=== PATIENT | female | born 1965 | race Caucasian/White ===

== ENCOUNTER → 2019-06-19 14:08 | Outpatient (BNVA) | payer MEDICAID, SELFPAY | PROVIDERS: Family Provider Family Medicine; Visit Provider Nurse Practitioner | DX: F31.71 Bipolar disorder, in partial remission, most recent episode hypomanic (principal) | CPT/HCPCS: 99214 ==

== ENCOUNTER → 2019-09-17 08:06 | Outpatient (BNVA) | payer MEDICAID, SELFPAY | PROVIDERS: Family Provider Family Medicine; Visit Provider Nurse Practitioner | DX: F31.71 Bipolar disorder, in partial remission, most recent episode hypomanic (principal) | CPT/HCPCS: 99214 ==

== ENCOUNTER → 2019-12-20 09:15 | Outpatient (BNVA) | payer MEDICAID, SELFPAY | PROVIDERS: Family Provider Family Medicine; Visit Provider Nurse Practitioner | DX: F31.71 Bipolar disorder, in partial remission, most recent episode hypomanic (principal) | CPT/HCPCS: 99213 ==

== ENCOUNTER 2020-02-11 13:36 | Outpatient (CLI) | payer MEDICAID, SELFPAY ==
--- NOTE | 2020-02-11 13:44 | XR_ITS ---
WS: [id number] Chest 2 views, 02/11/2020 Clinical Data: COUGH X 1 MONTH NEG COVID Comparison: Portable chest, 05/09/2018. Findings: No nodules, masses or effusions are seen. The heart is normal. The pulmonary vascularity is not increased. No pneumonia or pneumothorax is seen. XR/XR chest 2V* [id number] Impression: Negative chest.
== END 2020-02-11 13:37 | disposition home or self-care (01) ==
LOC: RAD 13:40
PROVIDERS: PCP Family Medicine; Visit Provider Family Medicine
DX: R05 Cough (principal)
CPT/HCPCS: 71046

== ENCOUNTER → 2020-03-24 07:42 | Outpatient (BNVA) | payer MEDICAID, SELFPAY | PROVIDERS: PCP Family Medicine; Visit Provider Nurse Practitioner | DX: F31.71 Bipolar disorder, in partial remission, most recent episode hypomanic (principal); F90.2 Attention-deficit hyperactivity disorder, combined type | CPT/HCPCS: 99213 ==

== ENCOUNTER → 2020-06-12 07:46 | Outpatient (BNVA) | payer MEDICAID, SELFPAY | PROVIDERS: PCP Family Medicine; Visit Provider Nurse Practitioner | DX: F31.71 Bipolar disorder, in partial remission, most recent episode hypomanic (principal) | CPT/HCPCS: 99214 ==

== ENCOUNTER → 2020-08-31 09:57 | Outpatient (BNVA) | payer MEDICAID, SELFPAY | PROVIDERS: PCP Family Medicine; Visit Provider Nurse Practitioner | DX: Z79.899 Other long term (current) drug therapy (principal) | CPT/HCPCS: 80053; 80061; 83036; 84443 ==

== ENCOUNTER → 2020-10-01 07:30 | Outpatient (BNVA) | payer MEDICAID, SELFPAY | PROVIDERS: PCP Family Medicine; Visit Provider Nurse Practitioner | DX: F31.71 Bipolar disorder, in partial remission, most recent episode hypomanic (principal); Z79.899 Other long term (current) drug therapy | CPT/HCPCS: 99214; 80178 ==

== ENCOUNTER 2020-10-07 07:49 | Outpatient (CLI) | payer MEDICAID, SELFPAY ==
--- NOTE | 2020-10-07 08:14 | XR_ITS ---
WS: [id number] LATERAL LUMBAR SPINE: 3 view. Lateral radiographs are performed in upright neutral, flexion and extension to the patient's toleranc e. HISTORY: INTERVERTEBRAL DISC DISORDERS WITH RADICULOPATHY, LUMBAR spine COMPARISON: 03/28/2017 Marked straightening of the normal lumbar lordosis. 3 mm retrolisthesis of L2 and L3. 4 mm retrolisth esis of L4. No significant instability with flexion and extension. Moderate degenerative disc disease and vacuum disc phenomenon at L4-5. Mild narrowing of L5-S1. No fr actures. XR/XR lumbar spine f/e only [id number] IMPRESSION: 1. No lumbar spine instability. 2. Mild retrolisthesis of L2-L4. 3. Moderate degenerative disc disease at L4-5. 4. Mild progression of degenerative changes and disc disease since 2016.
--- NOTE | 2020-10-07 08:33 | MR_ITS ---
WS: [id number] MRI LUMBAR SPINE NONCONTRAST HISTORY: INTERVERTEBRAL DISC DISORDERS WITH RADICULOPATHY, chronic low back pain. COMPARISON: 03/28/2017 TECHNIQUE: Sagittal and axial multisequence imaging is submitted. Straightening of the normal cervical lordosis and thoracic kyphosis. Small disc osteophyte complex at T7-8 with mild encroachment upon the ventral thecal sac. Straightening of the normal lumbar lordosis similar to the prior study. L4 retrolisthesis by 4 mm has progressed. Progression of disc desiccation at L4-5 since the prior study. Conus terminates normally at L1. L1-L2: Mild RIGHT foraminal narrowing due to facet disease. L2-L3: Mild ligamentum flavum and facet arthritis. No significant stenosis. L3-L4: Small thecal sac with no high-grade stenosis. Mild ligamentum flavum and facet arthritis. Mild bilateral proximal foraminal stenosis. Similar to the prior study with no progression. L4-L5: Moderate central canal stenosis due to combination of L4 retrolisthesis, diffuse annular disc bulge and with moderate ligamentum flavum and facet arthritis. Increasing fluid in the facet joints a nd a 5 mm LEFT facet joint cyst. Moderate bilateral subarticular recess and foraminal stenosis. L5-S1: Fluid in the facet joints bilaterally. Similar to the prior study. No stenosis. Increasing size of a heterogeneous but predominantly high signal mass in the medial RIGHT kidney now measuring 2.2 x 2.8 cm. Due to its heterogeneity a solid mass cannot be excluded. MR/MR lumbar spine wo con* [id number] IMPRESSION: 1. Moderate progression of degenerative disc disease and degenerative changes at the L4-5 disc level. 2. Moderate central, bilateral subarticular and foraminal stenosis at L4-5 has progressed since the prior study. 3. New retrolisthesis of L4 and moderate synovitis at the L4-5 facet joints. 4. Mild synovitis at the L5-S1 facet joints. 5. Mild bilateral proximal foraminal stenosis at L3-4 and on the RIGHT at L1-2 . 6. Increasing size of the heterogeneous mass RIGHT kidney. Complex cyst versus neoplasm. Recommend follow-up renal mass CT protocol to exclude renal cell [place] plasm.
== END 2020-10-07 07:50 | disposition home or self-care (01) ==
LOC: RADWPI 07:55
PROVIDERS: PCP Family Medicine; Visit Provider Anesthesiology Pain Medicine
DX: M51.16 Intervertebral disc disorders with radiculopathy, lumbar region (principal); M51.36 Other intervertebral disc degeneration, lumbar region; M48.061 Spinal stenosis, lumbar region without neurogenic claudication; M65.88 Other synovitis and tenosynovitis, other site
CPT/HCPCS: 72120; 72148

== ENCOUNTER 2020-11-12 12:53 | Outpatient (CLI) | payer MEDICAID, SELFPAY ==
--- NOTE | 2020-11-12 13:10 | CT_ITS ---
WS: [id number] CT ABDOMEN NON-CONTRAST PLUS CONTRAST TECHNIQUE: Noncontrast CT of the abdomen and contrast-enhanced CT of the abdomen with coronal and sag ittal reformatted images. CLINICAL INFORMATION: RIGHT RENAL MASS COMPARISON: MRI October 07, 2020 DLP: 1133.[address] scans at [facility] use at least one of these dose optimization techniques: automat ed exposure control; mA and/or kV adjustment per patient size (includes targeted exams where dose is matched to clinical indication); or iterative reconstruction. FINDINGS: Hepatomegaly with diffuse fatty infiltration of the liver. Normal portal vein and splenic vein. Cris l GE junction. Gallbladder is contracted. Lung bases are well aerated. Normal spleen. Normal pancreat ic enhancement. Normal caliber abdominal aorta. Adrenal glands are normal. Heterogeneously enhancing mid renal lesion measuring 2.1 x 2.6 cm has a co mplex appearance suspicious for small renal neoplasm. Ultrasound could be obtained to rule out cystic contents. This is unchanged since the prior MRI. No abdominal lymphadenopathy. Disc space narrowing worse at L4-L5 and L5-S1. CT/CT abdomen wo/w con [id number] IMPRESSION: 1. Hepatomegaly with diffuse fatty infiltration. 2. Heterogeneously enhancing right renal lesion involving the mid right kidney measuring 2.1 x 2.6 cm with internal enhancement suspicious for small renal ne oplasm. This can be further evaluated with ultrasound to exclude a complex cyst . 3. No hydronephrosis in either kidney. 4. Normal renal parenchymal enhancement. 5. No other significant findings.
[2020-11-12] MEDS: iohexol 300 mg/mL 100 mL Btl IV (14:54)
== END 2020-11-12 12:54 | disposition home or self-care (01) ==
PROVIDERS: PCP Family Medicine; Visit Provider Family Medicine
DX: N28.89 Other specified disorders of kidney and ureter (principal); R16.0 Hepatomegaly, not elsewhere classified; K76.0 Fatty (change of) liver, not elsewhere classified
CPT/HCPCS: 74170; Q9967

== ENCOUNTER → 2020-12-15 08:28 | Outpatient (BNVA) | payer MEDICAID, SELFPAY | PROVIDERS: PCP Family Medicine; Referring Provider Family Medicine; Visit Provider Urology | DX: N28.89 Other specified disorders of kidney and ureter (principal) | CPT/HCPCS: 81003 ==

== ENCOUNTER → 2020-12-17 10:35 | Outpatient (BNVA) | payer MEDICAID, SELFPAY | PROVIDERS: PCP Family Medicine; Visit Provider Nurse Practitioner | DX: F31.71 Bipolar disorder, in partial remission, most recent episode hypomanic (principal) | CPT/HCPCS: 99214 ==

== ENCOUNTER → 2021-03-08 10:43 | Outpatient (BNVA) | payer MEDICAID, SELFPAY | PROVIDERS: PCP Family Medicine; Visit Provider Nurse Practitioner | DX: F31.71 Bipolar disorder, in partial remission, most recent episode hypomanic (principal) | CPT/HCPCS: 99214 ==

== ENCOUNTER → 2021-06-07 10:46 | Outpatient (BNVA) | payer MEDICAID, SELFPAY | PROVIDERS: PCP Family Medicine; Visit Provider Nurse Practitioner | DX: F31.81 Bipolar II disorder (principal); F31.71 Bipolar disorder, in partial remission, most recent episode hypomanic | CPT/HCPCS: 99214 ==

== ENCOUNTER → 2021-06-17 10:06 | Outpatient (BNVA) | payer MEDICAID, SELFPAY | PROVIDERS: PCP Family Medicine; Referring Provider Anesthesiology Pain Medicine; Visit Provider Orthopaedic Surgery | DX: M54.50 Low back pain, unspecified (principal); M48.061 Spinal stenosis, lumbar region without neurogenic claudication | CPT/HCPCS: 72110 ==

== ENCOUNTER → 2021-07-05 10:51 | Outpatient (BNVA) | payer MEDICAID, SELFPAY | PROVIDERS: PCP Family Medicine; Visit Provider Orthopaedic Surgery | DX: M48.061 Spinal stenosis, lumbar region without neurogenic claudication (principal); Z20.822 Contact with and (suspected) exposure to COVID-19 | CPT/HCPCS: 87635 ==

== ENCOUNTER 2021-07-09 08:00 | Day surgery (SDC) | payer MEDICAID, SELFPAY ==
[2021-07-05 09:58] VITALS: BMI 38.2
--- NOTE | 2021-07-05 15:46 | ANES.PREANE2 ---
Pre-Anesthetic Assessment Height/Weight: Height 1.65 m Weight 104.326 kg Preop Diagnosis: Lumbar stenosis w/Neurogenic Claudication Operation Date: 07/09/21 09:30 Proposed Procedures p Lumbar Spine Decompression L4/5 26393/M48.062(Not Applicable) - Jayesh Cantu DO Familial anesthetic complications: none Was Beta Arielle taken within 24 hours: Yes Was Clonidine taken within 24 hours: N/A Last intake: 07/05/21 Social Tobacco (Endorses smoking a small amount of the time ) and No alcohol Exam alert, oriented x 3, clear to auscultation bilaterally and regular rate & rhythm Airway Submandibular: within normal limits Cervical ROM: within normal limits Mallampati: Class III Dentition: false History/ROS No significant complaints Pulmonary None reported CV/HEM None reported None reported Hepatic None reported GI None reported Metabolic None reported Musc/skel Lower Back Pain and None reported Neuropsych Bipolar and Cerebrovascular Accident (W/o residural sequelae ) Anesthetic Plan ASA status: 2 Anesthesia: Anesthesia Evaluation and General Other: We discussed risk and benefits of general anesthesia including PONV, sore throat (sometimes severe), corneal abrasion, positioning and peripheral nerve injuries, life threatening allergic reaction, post operative ICU admission requiring prolonged intubation, stroke, heart attack, , and rare incidences of recall. Patient consents to proceed with general anesthesia. Risk of > 500 ml blood loss (7ml/kg in children): No Medications/Allergies Home Medications Medication Instructions Recorded Confirmed Last Taken Type allopurinol 100 mg tablet 100 mg PO DAILY 06/19/19 07/05/21 Unknown History gabapentin 800 mg tablet 800 mg PO TID 06/19/19 07/05/21 Unknown History hydrocodone 7.5 mg-acetaminophen 1 tab PO Q6H PRN 06/19/19 07/05/21 Unknown History 325 mg tablet ([place]) methocarbamol 500 mg tablet 500 mg PO BID PRN tab 06/19/19 07/05/21 Unknown History albuterol sulfate 90 mcg/actuation 2 puff INHALATION Q6H PRN 11/11/20 07/05/21 Unknown History aerosol inhaler (ProAir HFA) fluticasone propionate 50 2 spray INTRANASAL DAILY 11/11/20 07/05/21 Unknown History mcg/actuation nasal spray,suspension (Allergy Relief (fluticasone)) dicyclomine 10 mg capsule 10 mg PO BID 12/15/20 07/05/21 Unknown History tramadol 50 mg tablet 50 mg PO DAILY 12/15/20 07/05/21 Unknown History aripiprazole 20 mg tablet (Abilify) 20 mg PO DAILY #30 tab 06/07/21 07/05/21 Unknown Rx clonazepam 0.5 mg tablet 0.5 mg PO DAILY PRN #30 tab 06/07/21 07/05/21 Unknown Rx desvenlafaxine succinate 100 mg 100 mg PO DAILY #30 tab 06/07/21 07/05/21 Unknown Rx tablet,extended release 24 hr (Pristiq) lithium carbonate 300 mg capsule 300 mg PO BID #60 cap 06/07/21 07/05/21 Unknown Rx propranolol 10 mg tablet 10 mg PO TID #90 tab 06/07/21 07/05/21 Unknown Rx quetiapine 100 mg tablet (Seroquel) 100 mg PO .at bed #30 tab 06/07/21 07/05/21 Unknown Rx trihexyphenidyl 2 mg tablet 2 mg PO TID #90 tab 06/07/21 07/05/21 Unknown Rx Allergies Allergy/AdvReac Type Severity Reaction Status Date / Time zolpidem [From Ambien] Allergy ADR-Confusi Verified 06/17/21 10:07 on [facility] Anesthesia Medical History Bipolar disorder, in partial remission, most recent episode hypomanic Bipolar II disorder [place] use On combination antipsychotic drug therapy Psychiatric care Right renal mass Family History Mother , IN HER 70'S CAD (coronary artery disease) HEART DISEASE,SKIN CANCER Father , AT AGE 55 CAD (coronary artery disease) HEART ATTACK Other Diabetes Social History Smoking and tobacco status: former smoker Second hand smoke exposure: No Smoking risk assessment/counseling performed?: No Marital status: Current occupational status: disabled Data Anesthesia Cardiac Studies: No Data to Display
--- NOTE | 2021-07-09 | SCC_ITS ---
Procedure done: 1. L4/5 laminectomy and partial facetectomy 11.7 seconds of fluoroscopic guidance, for a cumulative dose of 4.20 mGy, was provided to Dr. Cantu by the radiology department. C-arm images of the lumbar spine were saved for the patient's permanent record. [facility]
--- NOTE | 2021-07-09 | XR_ITS ---
WS: [id number] Exam: XR lumbar spine 1V [id number] Date/Time of Exam: 07/09/2021 12:00 AM Reason For Exam: spinal stenosis lunmbar claudication Limited posterior anterior C-arm images of the lumbar spine are submitted for evaluation. The images depict localization instruments superimposing the L5 vertebra to the left of midline. No other signi ficant finding on this limited study.
[2021-07-09 08:15] VITALS: BP 129/100; PULSE 65; RESP 14; TEMP 36.3; O2SAT 99
--- NOTE | 2021-07-09 08:53 | P.ANESUD_ITS ---
Pre-Anesthetic Update Pre-Anesthetic Assessment: Date of Surgery/Procedure: 07/09/21 Preop Rani gnosis: Lumbar stenosis w/Neurogenic Claudication Proposed Procedure: Operation Date: 07/09/21 09:30 Proposed Procedures p Lumbar Spine Decompression L4/5 91709/M48.062(Not Applicable) - Jayesh Cantu, DO Any changes to Pre-Anesthetic Assessment?: No Vitals: Temperature 97.3 F L 07/09/21 08:15 Temperature Source Temporal Artery S can 07/09/21 08:15 Pulse Rate 65 07/09/21 08:15 Pulse Rhythm 07/09/21 08:41 Pulse Strength 3+ Normal 07/09/21 08:41 Respiratory Rate 14 07/09/21 08:15 Blood Pressure 129/100 07/09/21 08:15 Blood Pressure Andie n 109 07/09/21 08:15 Pulse Oximetry 99 07/09/21 08:15 Oxygen Delivery Me thod 07/09/21 08:41 Exam: Pre-Anes Outpt Exam: alert, oriented x 3, clear to auscultation bilaterally and regular rate & rhythm Cardiac Studies: No Data to Display
[2021-07-09] MEDS: sodium chloride 0.9% 1,000 ML 30 ML IV (08:58)
--- NOTE | 2021-07-09 09:04 | W.PM.OPSUD ---
Surgery/Procedure H&P Update DATE OF PROCEDURE: July 09, 2021 DATE H&P PERFORMED: 06/17/21 H&P UPDATE INFORMATION: I have reviewed H&P completed within last 30 days, I have examined patient prior to procedure and No changes to prior documentation PREOP DIAGNOSIS: Lumbar stenosis w/Neurogenic Claudication PLANNED PROCEDURE: Operation Date: 07/09/21 09:30 Proposed Procedures p Lumbar Spine Decompression L4/5 43656/M48.062(Not Applicable) - Jayesh Cantu DO
--- NOTE | 2021-07-09 10:12 | PM.OP ---
Operative Report Date of procedure: July 09, 2021 Pre-op diagnosis: Preop Diagnosis Lumbar stenosis w/Neurogenic Claudication Post-op diagnosis: same Procedure done: 1. L4/5 laminectomy and partial facetectomy Surgeon: Jayesh Cantu Estimated blood loss (mL): 5 Procedure: Patient is brought to the operative suite. After undergoing anesthesia they are placed in the prone position. All areas of impingement are well padded. Patient is then prepped and draped in the normal sterile fashion. A skin incision is made over the L4/5 level. This is confirmed under c-arm guidance. A series of dilators are passed and the tubular retractor is docked on the L4 lamina. A bovie is used to clear the soft tissue off the lamina and the L 4/5 facet joint. A high speed tyrell is then used to perform the laminectomy and take down the medial aspect of the L 4/5 facet joint. A kerrison rongeure was then used to take down the remaining lamina and smooth the edge of the laminectomy up to the point where the ligamentum flavum attaches. Attention was then brought to the medial aspect of the facet joint. The remaining medial aspect of the superior and inferior aspect of the facet joint were taken down with the kerrison from the pedicle of L4 to L 5. The facet joint had significant hypertrophy. Attention was then brought to the Ligamentum Flavum. The ligament was taken down from the lamina of L4 to L5 and out medially to the remaining facet joint. The ligament was thick. The dura was then exposed. The dura was in good repair. The L4 nerve was then traced with a curette out the L4/5 foramen and found to be adequately decompressed. The L5 nerve was traced with a curette around the L5 pedicle. The lateral recess was opened with a kerrison helping to further decompress the L5 nerve. Wound is then irrigated copiously with saline and surgiflo is used to stop any bleeding. The tubular retractor is removed and the wound is closed with vicryl and monocryl suture. Glue is then used to protect the wound. A sterile dressing is then placed. Patient was then placed in the supine position and transferred to the PACU in stable condition.
[2021-07-09 10:31] VITALS: O2SAT 93
[2021-07-09 10:35] VITALS: BP 177/108; PULSE 75; RESP 17; O2SAT 97
[2021-07-09 10:40] VITALS: BP 161/97; PULSE 70; RESP 14; TEMP 36.1; O2SAT 95
[2021-07-09 10:55] VITALS: BP 153/97; PULSE 64; RESP 16; TEMP 36.3; O2SAT 94
--- NOTE | 2021-07-09 11:52 | ANE.PACU2 ---
Inpatient post-anesthesia follow up: Airway intact: Yes Vital signs: Temperature 97.3 F Pulse Rate 64 Respiratory Rate 16 Blood Pressure 153/97 Pulse Oximetry 94 Oxygen Delivery Me thod Room Air Oxygen Flow Rate 6 Fraction of Inspir ed Oxygen Hydration adequate: Yes Nausea and vomiting: No Pain level: 4 Mental status: Baseline
== END 2021-07-09 12:00 | disposition home or self-care (01) ==
PROVIDERS: PCP Family Medicine; Visit Provider Orthopaedic Surgery
PROC: (CPT 63005; principal; 2021-07-09 09:20)
DX: M48.062 Spinal stenosis, lumbar region with neurogenic claudication (principal); F17.210 Nicotine dependence, cigarettes, uncomplicated
CPT/HCPCS: 63047; 72020; 76000; J0690; J1100; J1200; J2250; J2310; J2405; J2704; J2710; J3010; J3490; J7030

== ENCOUNTER → 2021-07-22 09:44 | Outpatient (BNVA) | payer MEDICAID, SELFPAY | PROVIDERS: PCP Family Medicine; Visit Provider Orthopaedic Surgery | DX: Z47.89 Encounter for other orthopedic aftercare (principal); Z98.890 Other specified postprocedural states | CPT/HCPCS: 99024 ==

== ENCOUNTER → 2021-08-26 13:10 | Outpatient (BNVA) | payer MEDICAID, SELFPAY | PROVIDERS: PCP Family Medicine; Visit Provider Orthopaedic Surgery | DX: Z47.89 Encounter for other orthopedic aftercare (principal); Z98.890 Other specified postprocedural states; Z98.1 Arthrodesis status | CPT/HCPCS: 99024 ==

== ENCOUNTER → 2021-09-02 10:33 | Outpatient (BNVA) | payer MEDICAID, SELFPAY | PROVIDERS: PCP Family Medicine; Visit Provider Nurse Practitioner | DX: F31.81 Bipolar II disorder (principal); F31.71 Bipolar disorder, in partial remission, most recent episode hypomanic | CPT/HCPCS: 99214 ==

== ENCOUNTER 2021-09-16 11:35 | Outpatient (CLI) | payer MEDICAID, SELFPAY ==
[2021-09-16 12:28] LABS: Basophils % 0.6 %; Hematocrit 36.6 % (37.0-47.0); Hemoglobin 12.7 g/dL (11.5-15.3); Lymphocytes # 1.7 10^3/uL (0.8-4.8); Lymphocytes % 34.6 %; Mean Corpuscular HGB Conc 34.7 g/dL (30.0-36.0); Mean Corpuscular Hemoglobin 32.1 pg (28.0-34.0); Mean Corpuscular Volume 92.4 fl (81-99); Monocytes # 0.4 10^3/uL (0.2-0.9); Monocytes % 7.2 %; Neutrophils % 57.4 %; Nucleated Red Blood Cells % 0 %; Platelet Count 172 10^3/cmm (130-400); Red Blood Count 3.96 10^6/uL (4.1-5.3); Red Cell Distribution Width 13.2 % (12.1-15.1); White Blood Count 4.9 10^3/uL (4.0-10.0)
--- NOTE | 2021-09-16 12:53 | XR_ITS ---
WS: [id number] Exam: XR chest 2V* [id number] Date/Time of Exam: 09/16/2021 12:53 PM Reason For Exam: RIGHT RENAL MASS Comparison 02/11/2020 the lungs are clear and fully inflated. Normal cardiomediastinal silhouette. No pleural effusions. Mild levoscoliosis of the T-spine. No change. XR/XR chest 2V* [id number] IMPRESSION: 1. No acute cardiopulmonary process.
[2021-09-16 13:00] LABS: Alanine Aminotransferase 35 U/L (0-33); Albumin Level 4.3 g/dL (3.5-5.2); Alkaline Phosphatase 68 IU/L (35-105); Anion Gap 15.1 (5-19); Aspartate Amino Transferase 32 U/L (0-32); Blood Urea Nitrogen 12 mg/dL (6-20); Calcium 9.8 mg/dL (8.5-10.5); Carbon Dioxide 23 mmol/L (22-29); Chloride 107 mmol/L (98-107); Globulin 2.9 g/dL (1.3-4.6); Glomerular Filtration Rate 56.9 mL/min (90-130); Glucose 154 mg/dL (65-115); Osmolality Calculated 295 mOsm/kg (285-295); Potassium 4.1 mmol/L (3.5-5.1); Sodium 141 mmol/L (136-145); Total Bilirubin 0.4 mg/dL (0.15-1.2); Total Protein 7.2 g/dL (6.6-8.7)
== END 2021-09-16 11:36 | disposition home or self-care (01) ==
LOC: RAD 11:38
PROVIDERS: PCP Family Medicine; Visit Provider Urology
DX: N28.89 Other specified disorders of kidney and ureter (principal); C64.1 Malignant neoplasm of right kidney, except renal pelvis
CPT/HCPCS: 71046; 80053; 81003; 85025; 99213

== ENCOUNTER → 2021-10-07 13:42 | Outpatient (BNVA) | payer MEDICAID, SELFPAY | PROVIDERS: PCP Family Medicine; Visit Provider Orthopaedic Surgery | DX: Z47.89 Encounter for other orthopedic aftercare (principal); Z98.890 Other specified postprocedural states | CPT/HCPCS: 99024; 99212 ==

== ENCOUNTER 2021-11-01 09:26 | Outpatient (CLI) | payer MEDICAID, SELFPAY ==
--- NOTE | 2021-11-01 09:37 | XR_ITS ---
WS: [id number] Exam: XR hip LT 2-3V wo/w pel* [id number] Date/Time of Exam: 11/01/2021 9:42 AM Reason For Exam: PAIN IN LEFT HIP No acute fracture or dislocation. The joint compartment relatively well maintained. Normal soft tissu es. XR/XR hip LT 2-3V wo/w pel* [id number] IMPRESSION: 1. Negative left hip.
== END 2021-11-01 09:27 | disposition home or self-care (01) ==
LOC: RAD 09:28
PROVIDERS: PCP Family Medicine; Visit Provider Family Medicine
DX: M25.551 Pain in right hip (principal)
CPT/HCPCS: 73502

== ENCOUNTER 2021-12-30 12:17 | Outpatient (CLI) | payer MEDICAID, SELFPAY ==
--- NOTE | 2021-12-30 12:38 | XR_ITS ---
WS: [id number] Chest 2 views, aspiration and expiration, 12/30/2021 Clinical Data: R RENAL MASS Comparison: PA and lateral chest, 09/16/2021. Findings: No nodules, masses or effusions are seen. The heart is normal. The pulmonary vascularity is not increased. No pneumonia or pneumothorax is seen. On inspiration and expiration there is normal d iaphragmatic excursion. No mediastinal shift is seen. XR/XR chest 2V insp/exp [id number] Impression: Negative inspiration and expiration PA chests.
[2021-12-30 13:27] LABS: Basophils % 0.6 %; Eosinophils % 0.2 %; Hematocrit 39.7 % (37.0-47.0); Hemoglobin 13.1 g/dL (11.5-15.3); Lymphocytes # 2.1 10^3/uL (0.8-4.8); Lymphocytes % 40.6 %; Mean Corpuscular Hemoglobin 32.5 pg (28.0-34.0); Mean Corpuscular Volume 98.5 fl (81-99); Mean Platelet Volume 10.2 fL (7.4-10.4); Monocytes # 0.4 10^3/uL (0.2-0.9); Monocytes % 8.1 %; Neutrophils # 2.62 10^3/uL (1.8-7.7); Neutrophils % 50.3 %; Nucleated Red Blood Cells % 0 %; Platelet Count 183 10^3/cmm (130-400); Red Blood Count 4.03 10^6/uL (4.1-5.3); Red Cell Distribution Width 12.9 % (12.1-15.1); White Blood Count 5.2 10^3/uL (4.0-10.0)
[2021-12-30 13:55] LABS: Alanine Aminotransferase 29 U/L (0-33); Albumin Level 4.2 g/dL (3.5-5.2); Alkaline Phosphatase 77 U/L (35-105); Anion Gap 12.3 (5-19); Aspartate Amino Transferase 35 U/L (0-32); Blood Urea Nitrogen 11 mg/dL (6-20); Calcium 9.9 mg/dL (8.5-10.5); Carbon Dioxide 28 mmol/L (22-29); Chloride 104 mmol/L (98-107); Glomerular Filtration Rate 56.9 mL/min (90-130); Glucose 104 mg/dL (65-115); Osmolality Calculated 290 mOsm/kg (285-295); Potassium 4.3 mmol/L (3.5-5.1); Sodium 140 mmol/L (136-145); Total Bilirubin 0.4 mg/dL (0.15-1.2); Total Protein 7.2 g/dL (6.6-8.7)
== END 2021-12-30 12:18 | disposition home or self-care (01) ==
LOC: LAB 12:22
PROVIDERS: PCP Family Medicine; Visit Provider Urology
DX: N28.89 Other specified disorders of kidney and ureter (principal); C64.1 Malignant neoplasm of right kidney, except renal pelvis
CPT/HCPCS: 36415; 71046; 80053; 85025; 99213

== ENCOUNTER → 2022-01-06 13:31 | Outpatient (BNVA) | payer MEDICAID, SELFPAY | PROVIDERS: PCP Family Medicine; Visit Provider Orthopaedic Surgery | DX: Z47.89 Encounter for other orthopedic aftercare (principal) | CPT/HCPCS: 99212; 99213 ==

== ENCOUNTER → 2022-02-17 08:32 | Outpatient (BNVA) | payer MEDICAID, SELFPAY | PROVIDERS: PCP Family Medicine; Visit Provider Internal Medicine | DX: R76.8 Other specified abnormal immunological findings in serum (principal); M54.9 Dorsalgia, unspecified; G89.29 Other chronic pain; Z11.59 Encounter for screening for other viral diseases; Z11.1 Encounter for screening for respiratory tuberculosis; M21.371 Foot drop, right foot; M21.372 Foot drop, left foot | CPT/HCPCS: 73120; 73620; 99204 ==

== ENCOUNTER 2022-02-17 13:47 | Outpatient (CLI) | payer MEDICAID, SELFPAY ==
--- NOTE | 2022-02-17 14:17 | ECG_ITS ---
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 Measurements Intervals Frostproof Rate: 65 P: 37 OK: 193 QRS: 4 QRSD: 98 T: 197 QT: 391 QTc: 407 Interpretive Statements SINUS RHYTHM LOW QRS VOLTAGE IN PRECORDIAL LEADS [QRS DEFLECTION < 1.0 mV IN CHEST LEADS] PATTERN CONSISTENT WITH PULMONARY DISEASE INCOMPLETE RIGHT BUNDLE BRANCH BLOCK [90+ ms QRS DURATION, TERMINAL R IN V1/V2, 40+ ms S IN I/aVL/V4/V5/V6] NONSPECIFIC T-WAVE ABNORMALITY Compared to ECG 05/10/2018 13:37:27 Low QRS voltage now present Possible ischemia no longer present T-wave abnormality still present Electronically Signed On 02-19-2022 15:15:20 PROFESSIONAL [employer] by Chang Kraft M.D. [id number]
== END 2022-02-17 13:48 | disposition home or self-care (01) ==
LOC: RAD 13:50
PROVIDERS: PCP Family Medicine; Visit Provider Internal Medicine
DX: R76.8 Other specified abnormal immunological findings in serum (principal); I49.8 Other specified cardiac arrhythmias; R94.31 Abnormal electrocardiogram [ECG] [EKG]; I45.10 Unspecified right bundle-branch block
CPT/HCPCS: 80053; 85025; 85651; 86140; 86160; 86162; 86200; 86235; 86255; 86376; 86480; 86704; 86803; 87340; 93005

== ENCOUNTER 2022-04-14 12:29 | Outpatient (CLI) | payer MEDICAID, SELFPAY | END 2022-04-14 12:30 | disposition home or self-care (01) | LOC: LAB 12:33 | PROVIDERS: PCP Family Medicine; Visit Provider Urology | DX: C64.1 Malignant neoplasm of right kidney, except renal pelvis (principal) | CPT/HCPCS: 36415; 71046; 80053; 81003; 85025; 99213 ==

== ENCOUNTER → 2022-05-05 13:35 | Outpatient (BNVA) | payer MEDICAID, SELFPAY | PROVIDERS: PCP Family Medicine; Visit Provider Internal Medicine | DX: R76.8 Other specified abnormal immunological findings in serum (principal); M54.9 Dorsalgia, unspecified; G89.29 Other chronic pain; M21.371 Foot drop, right foot; M21.372 Foot drop, left foot | CPT/HCPCS: 73502; 93005; 99214 ==

== ENCOUNTER 2022-05-25 09:52 | Outpatient (CLI) | payer MEDICAID, SELFPAY ==
--- NOTE | 2022-05-25 10:00 | MM_ITS ---
WS: [id number] BILATERAL SCREENING DIGITAL TOMOSYNTHESIS MAMMOGRAM WITH CAD HISTORY: SCREENING COMPARISON: 02/14/2019 and 08/18/2016 Bilateral CC and MLO views with tomosynthesis and synthetic mammography submitted. Computer aided det ection analyzed. Breast composition: There are scattered areas of fibroglandular density. No suspicious masses, microc alcifications or architectural distortion. No change in the asymmetries or calcifications. MM/[place] [id number] IMPRESSION: BI-RADS: 2-Benign FOLLOW UP: 1 Year Follow-up
== END 2022-05-25 09:53 | disposition home or self-care (01) ==
LOC: RAD 09:56
PROVIDERS: PCP Family Medicine; Visit Provider Family Medicine
DX: Z12.31 Encounter for screening mammogram for malignant neoplasm of breast (principal)
CPT/HCPCS: 77063; 77067

== ENCOUNTER → 2022-06-07 10:20 | Outpatient (BNVA) | payer MEDICAID, SELFPAY | PROVIDERS: PCP Family Medicine; Visit Provider Orthopaedic Surgery | DX: M48.062 Spinal stenosis, lumbar region with neurogenic claudication (principal); G89.29 Other chronic pain; Z98.890 Other specified postprocedural states | CPT/HCPCS: 72110; 99214 ==

== ENCOUNTER 2022-07-20 14:33 | Outpatient (CLI) | payer MEDICAID, SELFPAY ==
--- NOTE | 2022-07-20 14:30 | MR_ITS ---
WS: [id number] MRI LUMBAR SPINE NONCONTRAST HISTORY: pain RIGHT hip and RIGHT groin. COMPARISON: 10/07/2020 TECHNIQUE: Sagittal and axial multisequence imaging is submitted. Mild degenerative disc disease cervical and thoracic spines. Small central disc protrusion at T7-8. Straightening of the normal lumbar lordosis. L4 retrolisthesis by 3 mm. Similar to the prior study. N o fractures or marrow edema. Very mild disc desiccation. Conus terminates normally at L1. L1-L2: Mild facet arthritis. L2-L3: Mild ligamentum flavum and facet arthritis. Very mild encroachment upon the subarticular reces ses. No high-grade stenosis. L3-L4: Small caliber thecal sac with mild diffuse annular disc bulging encroaching upon the subarticu lar recesses. Moderate ligamentum flavum and facet arthritis. Fluid in the facet joints bilaterally. Mild central with moderate subarticular recess and mild foraminal narrowing. Disc encroachment upon t he traversing L4 nerve roots. L4-L5: Marked annular disc bulging with encroachment upon the ventral thecal sac and subarticular rec esses. There is a small LEFT hemilaminectomy defect. Increase fluid in the facet joints. Disc bulges into the foramina with moderate bilateral foraminal stenosis. Slightly greater on the LEFT. Small fac et joint cyst on the LEFT. Moderate central stenosis. Mild clumping of the nerve roots. L5-S1: Mild disc bulging with a central disc protrusion. Mild subarticular recess and foraminal steno sis. Mild facet joint arthritis. Interval RIGHT nephrectomy since the prior study. MR/MR lumbar spine wo con* [id number] IMPRESSION: 1. Since the prior examination L4 LEFT hemilaminectomy defect. 2. Moderate central stenosis at L4-5 with disc encroachment upon the subarticu lar recesses. Moderate bilateral foraminal stenosis also at L4-5. Similar to th e prior study. 3. Mild central and foraminal stenosis at L3-4 with moderate subarticular rece ss encroachment by disc disease. 4. Mild subarticular recess and foraminal stenosis at L5-S1. 5. Slight retrolisthesis of L4. 6. Mild clumping of the nerve roots in the thecal sac at the L4-5 level is new . Consider arachnoiditis. 7. Multilevel facet joint arthritis. Most significant from L3-4 to L5-S1. 8. Status post RIGHT nephrectomy.
== END 2022-07-20 14:34 | disposition home or self-care (01) ==
LOC: RAD 14:35
PROVIDERS: PCP Family Medicine; Visit Provider Orthopaedic Surgery
DX: M48.062 Spinal stenosis, lumbar region with neurogenic claudication (principal); M47.816 Spondylosis without myelopathy or radiculopathy, lumbar region
CPT/HCPCS: 72148

== ENCOUNTER → 2022-07-26 12:41 | Outpatient (BNVA) | payer MEDICAID, SELFPAY | PROVIDERS: PCP Family Medicine; Visit Provider Orthopaedic Surgery | DX: M48.061 Spinal stenosis, lumbar region without neurogenic claudication (principal); M51.36 Other intervertebral disc degeneration, lumbar region | CPT/HCPCS: 99214 ==

== ENCOUNTER → 2022-08-10 11:40 | Outpatient (BNVA) | payer MEDICAID, SELFPAY | PROVIDERS: PCP Family Medicine; Visit Provider Nurse Practitioner | DX: Z79.899 Other long term (current) drug therapy (principal) | CPT/HCPCS: 80061; 83036 ==

== ENCOUNTER → 2022-08-15 13:44 | Outpatient (BNVA) | payer MEDICAID, SELFPAY | PROVIDERS: PCP Family Medicine; Visit Provider Internal Medicine | DX: R76.8 Other specified abnormal immunological findings in serum (principal); M54.9 Dorsalgia, unspecified; G89.29 Other chronic pain; M21.379 Foot drop, unspecified foot | CPT/HCPCS: 99214 ==

== ENCOUNTER → 2022-10-25 12:51 | Outpatient (BNVA) | payer MEDICAID, SELFPAY | PROVIDERS: PCP Family Medicine; Visit Provider Orthopaedic Surgery | DX: M54.50 Low back pain, unspecified (principal); M54.9 Dorsalgia, unspecified; G89.29 Other chronic pain | CPT/HCPCS: 72110; 99214 ==

== ENCOUNTER 2022-12-14 09:56 | Outpatient (CLI) | payer MEDICAID, SELFPAY ==
[2022-12-14 10:34] LABS: Basophils # 0.1 10^3/uL (0.0-0.1); Basophils % 1.1 %; Eosinophils # 0.2 10^3/uL (0.0-0.8); Eosinophils % 2.3 %; Hematocrit 38.6 % (36-47); Lymphocytes # 2.5 10^3/uL (0.8-4.8); Lymphocytes % 38.1 %; Mean Corpuscular HGB Conc 33.7 g/dL (30-55); Mean Corpuscular Hemoglobin 31.8 pg (27-33); Mean Corpuscular Volume 94.4 fl (85-98); Monocytes # 0.5 10^3/uL (0.2-0.9); Neutrophils # 3.25 10^3/uL (1.8-7.7); Neutrophils % 50.3 %; Nucleated Red Blood Cells % 0 %; Platelet Count 206 10^3/cmm (157-399); Red Blood Count 4.09 10^6/uL (3.85-5.65); Red Cell Distribution Width 12.6 % (12.1-15.1); White Blood Count 6.46 10^3/uL (3.29-11.43)
[2022-12-14 11:00] LABS: Alanine Aminotransferase 19 U/L (0-33); Albumin Level 4.1 g/dL (3.5-5.2); Alkaline Phosphatase 72 U/L (35-105); Anion Gap 13.2 (5-19); Aspartate Amino Transferase 18 U/L (0-32); Blood Urea Nitrogen 19 mg/dL (6-20); Calcium 9.6 mg/dL (8.5-10.5); Carbon Dioxide 27 mmol/L (22-29); Chloride 103 mmol/L (98-107); Globulin 3.3 g/dL (1.3-4.6); Glomerular Filtration Rate 73.4 mL/min (90-130); Glucose 144 mg/dL (65-115); Osmolality Calculated 293 mOsm/kg (285-295); Potassium 4.2 mmol/L (3.5-5.1); Sodium 139 mmol/L (136-145); Total Bilirubin 0.4 mg/dL (0.15-1.2); Total Protein 7.4 g/dL (6.6-8.7)
[2022-12-14 11:21] LABS: Erythrocyte Sedimentation Rate 23 mm/hr (0-15)
== END 2022-12-14 09:57 | disposition home or self-care (01) ==
LOC: LAB 09:58
PROVIDERS: PCP Family Medicine; Visit Provider Internal Medicine
DX: R76.8 Other specified abnormal immunological findings in serum (principal); G89.29 Other chronic pain; M54.9 Dorsalgia, unspecified
CPT/HCPCS: 36415; 80053; 85025; 85651; 86140

== ENCOUNTER → 2022-12-20 12:47 | Outpatient (BNVA) | payer MEDICAID, SELFPAY | PROVIDERS: PCP Family Medicine; Visit Provider Orthopaedic Surgery | DX: M48.062 Spinal stenosis, lumbar region with neurogenic claudication | CPT/HCPCS: 99213 ==

== ENCOUNTER → 2022-12-21 08:48 | Outpatient (BNVA) | payer MEDICAID, SELFPAY | PROVIDERS: PCP Family Medicine; Visit Provider Internal Medicine | DX: R76.8 Other specified abnormal immunological findings in serum (principal); M54.9 Dorsalgia, unspecified; G89.29 Other chronic pain; M21.379 Foot drop, unspecified foot | CPT/HCPCS: 99214 ==

== ENCOUNTER → 2023-01-10 10:04 | Outpatient (BNVA) | payer MEDICAID, SELFPAY | PROVIDERS: PCP Family Medicine; Referring Provider Family Medicine; Visit Provider Internal Medicine Cardiovascular Disease | DX: I25.10 Atherosclerotic heart disease of native coronary artery without angina pectoris (principal); E78.5 Hyperlipidemia, unspecified; F31.81 Bipolar II disorder; R03.0 Elevated blood-pressure reading, without diagnosis of hypertension; I25.2 Old myocardial infarction; F17.210 Nicotine dependence, cigarettes, uncomplicated | CPT/HCPCS: 99204 ==

== ENCOUNTER → 2023-02-07 14:27 | Outpatient (BNVA) | payer MEDICAID, SELFPAY | PROVIDERS: PCP Family Medicine; Referring Provider Family Medicine; Visit Provider Podiatrist Foot & Ankle Surgery | DX: M77.52 Other enthesopathy of left foot and ankle; M21.372 Foot drop, left foot | CPT/HCPCS: 73610; 99203 ==

== ENCOUNTER 2023-02-08 14:30 | Outpatient (CLI) | payer MEDICAID, SELFPAY ==
[2023-02-08 15:43] LABS: Alanine Aminotransferase 19 U/L (0-33); Albumin Level 4.1 g/dL (3.5-5.2); Alkaline Phosphatase 80 U/L (35-105); Aspartate Amino Transferase 20 U/L (0-32); Globulin 3.1 g/dL (1.3-4.6); Total Bilirubin 0.4 mg/dL (0.15-1.2); Total Protein 7.2 g/dL (6.6-8.7)
== END 2023-02-08 14:31 | disposition home or self-care (01) ==
PROVIDERS: PCP Family Medicine; Visit Provider Internal Medicine Cardiovascular Disease
DX: E78.5 Hyperlipidemia, unspecified (principal)
CPT/HCPCS: 36415; 80076

== ENCOUNTER → 2023-02-28 11:09 | Outpatient (BNVA) | payer MEDICAID, SELFPAY | PROVIDERS: PCP Family Medicine; Visit Provider Podiatrist Foot & Ankle Surgery | DX: M77.52 Other enthesopathy of left foot and ankle; M21.372 Foot drop, left foot; M76.822 Posterior tibial tendinitis, left leg | CPT/HCPCS: 99213 ==

== ENCOUNTER 2023-03-06 13:48 | Outpatient (CLI) | payer MEDICAID, SELFPAY ==
[2023-03-06 15:28] LABS: Chol HDL Ratio 2.91 mg/dL (0.0-4.40); Cholesterol 160 mg/dL (0-200); HDL Cholesterol 55 mg/dL (60-100); LDL Cholesterol Calculated 68 mg/dL (50-129); LDL HDL Ratio 1.24 RATIO (0.00-3.22); Triglycerides 183 mg/dL (0-150)
== END 2023-03-06 13:49 | disposition home or self-care (01) ==
LOC: LAB 13:49
PROVIDERS: PCP Family Medicine; Visit Provider Internal Medicine Cardiovascular Disease
DX: E78.5 Hyperlipidemia, unspecified (principal)
CPT/HCPCS: 36415; 80061

== ENCOUNTER → 2023-03-21 09:52 | Outpatient (BNVA) | payer MEDICAID, SELFPAY | PROVIDERS: PCP Family Medicine; Visit Provider Podiatrist Foot & Ankle Surgery | DX: M77.52 Other enthesopathy of left foot and ankle (principal); M21.372 Foot drop, left foot; M76.822 Posterior tibial tendinitis, left leg | CPT/HCPCS: 99213 ==

== ENCOUNTER → 2023-04-18 12:32 | Outpatient (BNVA) | payer MEDICAID, SELFPAY | PROVIDERS: PCP Family Medicine; Visit Provider Nurse Practitioner Family | DX: I25.10 Atherosclerotic heart disease of native coronary artery without angina pectoris (principal); I10 Essential (primary) hypertension; F17.200 Nicotine dependence, unspecified, uncomplicated | CPT/HCPCS: 99214 ==

== ENCOUNTER → 2023-05-16 14:20 | Outpatient (BNVA) | payer MEDICAID, SELFPAY | PROVIDERS: PCP Family Medicine; Referring Provider Family Medicine; Visit Provider Podiatrist Foot & Ankle Surgery | DX: M84.371A Stress fracture, right ankle, initial encounter for fracture; M21.371 Foot drop, right foot; M76.821 Posterior tibial tendinitis, right leg; M77.51 Other enthesopathy of right foot and ankle | CPT/HCPCS: 73610; 99213 ==

== ENCOUNTER 2023-06-13 11:27 | Outpatient (CLI) | payer MEDICAID, SELFPAY ==
--- NOTE | 2023-06-13 11:45 | MR_ITS ---
WS: [id number] MRI RIGHT ANKLE WITHOUT CONTRAST. COMPARISON: Radiograph 05/16/2023 Multiplanar, multisequence imaging is performed without contrast. No acute fractures or marrow edema. Small osteophyte distal fibular tip. Mild narrowing of the tibiot alar joint space. No osteochondral lesions. No joint effusion. There is a small amount of increased T2 signal in the anterior talofibular ligament consistent with a partial tear at the insertion to the fibula. The calcaneofibular ligament is poorly visualized and s mall caliber but no tear identified. Normal deltoid ligament. Anterior and posterior tibiofibular lig aments appear intact. Peroneus brevis tendon is abnormal. At the level of the peroneal tubercle there is increased fluid an d abnormal shape of the peroneus brevis tendon. Typically the peroneus brevis tendon is more anterior and medial to the longus tendon. The peroneus brevis is partially torn and becomes lateral to the pe roneus longus tendon. There is increased fluid in the tendon sheath. Distally the peroneus brevis ten don attaches normally to the fifth metatarsal. There is increased soft tissues thickening and poor di stinction of the peroneus brevis beginning just below the fibular tip. Achilles tendon is normal. The flexor and extensor tendons are normal. IMPRESSION: 1. Abnormal peroneus brevis tendon and tendon sheath. Split tear with tendinopathy beginning at the level of the peroneal tubercle and extending distally. The peroneus brevis tendon is lateral to the p eroneus longus tendon which is an atypical presentation. May be due to partial subluxation of the ten don. Partially torn tendon with tenosynovitis. 2. Mild sprain of the anterior talofibular ligament.
== END 2023-06-13 11:28 | disposition home or self-care (01) ==
PROVIDERS: PCP Family Medicine; Visit Provider Podiatrist Foot & Ankle Surgery
DX: S96.811A Strain of other specified muscles and tendons at ankle and foot level, right foot, initial encounter (principal); S93.491A Sprain of other ligament of right ankle, initial encounter; X58.XXXA Exposure to other specified factors, initial encounter
CPT/HCPCS: 73721

== ENCOUNTER → 2023-06-27 13:15 | Outpatient (BNVA) | payer MEDICAID, SELFPAY | PROVIDERS: PCP Family Medicine; Visit Provider Podiatrist Foot & Ankle Surgery | DX: M77.51 Other enthesopathy of right foot and ankle; M21.371 Foot drop, right foot; M76.821 Posterior tibial tendinitis, right leg | CPT/HCPCS: 99213 ==

== ENCOUNTER → 2023-07-12 13:41 | Outpatient (BNVA) | payer MEDICAID, SELFPAY | PROVIDERS: PCP Family Medicine; Visit Provider Internal Medicine Cardiovascular Disease | DX: I25.10 Atherosclerotic heart disease of native coronary artery without angina pectoris (principal); E78.5 Hyperlipidemia, unspecified; R03.0 Elevated blood-pressure reading, without diagnosis of hypertension; F31.71 Bipolar disorder, in partial remission, most recent episode hypomanic; E66.01 Morbid (severe) obesity due to excess calories; Z68.42 Body mass index [BMI] 45.0-49.9, adult; F17.200 Nicotine dependence, unspecified, uncomplicated | CPT/HCPCS: 99214 ==

== ENCOUNTER → 2023-08-01 13:58 | Outpatient (BNVA) | payer MEDICAID, SELFPAY | PROVIDERS: PCP Family Medicine; Visit Provider Podiatrist Foot & Ankle Surgery | DX: M76.71 Peroneal tendinitis, right leg; M77.51 Other enthesopathy of right foot and ankle; M21.371 Foot drop, right foot | CPT/HCPCS: 99213 ==

== ENCOUNTER → 2023-10-19 08:56 | Outpatient (BNVA) | payer MEDICAID, SELFPAY | PROVIDERS: PCP Family Medicine; Visit Provider Orthopaedic Surgery | DX: M54.9 Dorsalgia, unspecified (principal); G89.29 Other chronic pain; M48.062 Spinal stenosis, lumbar region with neurogenic claudication | CPT/HCPCS: 72110; 99213 ==

== ENCOUNTER → 2023-12-19 08:09 | Outpatient (BNVA) | payer MEDICAID, SELFPAY | PROVIDERS: PCP Family Medicine; Visit Provider Podiatrist Foot & Ankle Surgery | DX: M21.379 Foot drop, unspecified foot; G62.9 Polyneuropathy, unspecified; M76.71 Peroneal tendinitis, right leg; E11.42 Type 2 diabetes mellitus with diabetic polyneuropathy | CPT/HCPCS: 99213 ==

== ENCOUNTER → 2024-01-10 11:46 | Outpatient (BNVA) | payer MEDICAID, SELFPAY | PROVIDERS: PCP Family Medicine; Visit Provider Internal Medicine Cardiovascular Disease | DX: I49.8 Other specified cardiac arrhythmias (principal); R94.31 Abnormal electrocardiogram [ECG] [EKG]; R07.9 Chest pain, unspecified | CPT/HCPCS: 93005; 99214 ==

== ENCOUNTER → 2024-02-06 14:38 | Outpatient (BNVA) | payer MEDICAID, SELFPAY | PROVIDERS: PCP Family Medicine; Visit Provider Orthopaedic Surgery | DX: M48.062 Spinal stenosis, lumbar region with neurogenic claudication (principal); Z01.818 Encounter for other preprocedural examination; G89.29 Other chronic pain; E11.9 Type 2 diabetes mellitus without complications | CPT/HCPCS: 36415; 72110; 81001; 83036; 85025; 99214 ==

== ENCOUNTER → 2024-02-16 11:50 | Outpatient (BNVA) | payer MEDICAID, SELFPAY | PROVIDERS: PCP Family Medicine; Visit Provider Family Medicine | DX: Z01.818 Encounter for other preprocedural examination (principal) | CPT/HCPCS: 81003 ==

== ENCOUNTER → 2024-02-28 10:12 | Outpatient (BNVA) | payer MEDICAID, SELFPAY | PROVIDERS: PCP Family Medicine; Visit Provider Family Medicine | DX: Z01.818 Encounter for other preprocedural examination (principal) | CPT/HCPCS: 81003 ==

== ENCOUNTER → 2024-03-05 06:00 | Day surgery (SDC) | payer MEDICAID, SELFPAY | LOC: OPS 03-07 11:09 | PROVIDERS: PCP Family Medicine; Visit Provider Family Medicine | DX: Z01.818 Encounter for other preprocedural examination (principal) | CPT/HCPCS: 81003; 87086 ==

== ENCOUNTER → 2024-03-20 09:02 | Day surgery (SDC) | payer MEDICAID, SELFPAY ==
[2024-03-20 09:45] VITALS: BP 150/94; PULSE 67; RESP 18; TEMP 36.1; O2SAT 98; BMI 45.7
[2024-03-20 10:13] LABS: Bilirubin Urine Negative (Negative); Blood Urine Negative (Negative); Glucose Urine UA Negative (Normal); Ketones Urine Negative (Negative); Leukocyte Esterase Urine Negative (Negative); Nitrate Urine Negative (Negative); Protein Urine Negative (Negative); Urine Appearance Cloudy (CLEAR); Urine Color Yellow (Yellow); pH Urine 5.5 (5-7)
[2024-03-20 10:18] LABS: Add Urine Microscopic? YES; Bacteria Urine 4+ /hpf; Hyaline Casts Urine 0.81 /lpf
[2024-03-20 10:19] LABS: Specific Gravity, Urine 1.031 (1.005-1.030)
[2024-03-20 10:35] LABS: Alanine Aminotransferase 24 U/L (0-33); Albumin Level 4.4 g/dL (3.5-5.2); Alkaline Phosphatase 73 U/L (35-105); Blood Urea Nitrogen 16 mg/dL (8-23); Calcium 9.7 mg/dL (8.5-10.5); Carbon Dioxide 29 mmol/L (22-29); Chloride 104 mmol/L (98-107); Creatinine Clr Calc Pharmacy 97.9357; Globulin 3.3 g/dL (1.3-4.6); Glomerular Filtration Rate 85.4 mL/min (90-130); Glucose 110 mg/dL (65-115); Osmolality Calculated 296 mOsm/kg (285-295); Sodium 142 mmol/L (136-145); Total Bilirubin 0.5 mg/dL (0.15-1.2); Total Protein 7.7 g/dL (6.6-8.7)
[2024-03-20 10:47] LABS: Anion Gap 13.8 (5-19); Aspartate Amino Transferase 24 U/L (0-32); Potassium 4.8 mmol/L (3.5-5.1)
--- NOTE | 2024-03-20 11:02 | P.ANESASSM_ITS ---
Pre-Anesthetic Assessment Height/Weight: Height 5 ft 1 in Weight 242 lb Temp Pulse Resp BP Pulse Ox O2 Del Method 96.9 F L 67 18 150/94 98 Room Air 03/20/24 09:45 03/20/24 09:45 03/20/24 09:45 03/20/24 09:45 03/20/24 09:45 03/20/24 09:45 Preop Diagnosis: Lumbar stenosis with neurogenic claudication Operation Date: 03/20/24 10:45 Proposed Procedures p Spinal Fusion PSF(Not Applicable) - Jayesh Cantu DO s Posterior Lumbar Interbody Fusion PLIF(Not Applicable) - Jayesh Cantu DO s Lumbopelvic Fixation(Not Applicable) - Jayesh Cantu DO s Sacroiliac Joint Fusion SI Joint Fusion(Not Applicable) - Jayesh Cantu DO Was Beta Arielle taken within 24 hours: Yes Was Clonidine taken within 24 hours: N/A Last intake: Intake Last Liquid Date 03/20/24 Last Liquid Time 07:00 Last Solid Date 03/19/24 Last Solid Time 23:00 Social Tobacco and No alcohol Exam alert, oriented x 3, clear to auscultation bilaterally and regular rate & rhythm Airway Submandibular: within normal limits Cervical ROM: within normal limits Mallampati: Class IV Dentition: false Comments: Comments: Small mouth opening Anesthetic Plan ASA status: 3 Anesthesia: General Other: No prior issues with anesthesia NPO since yesterday History of CAD s/p PCI 1 year ago. On chronic Plavix. Held for 5 days History of CVA years ago, no residual symptoms Type 2 diabetes on injectable GLP-1. Held for 7 days Hypertension, on numerous antihypertensives, preop BP 150/94 Current smoker UA was positive when she was seen in the preop clinic, completed antibiotics. Currently asymptomatic. Repeat UA pending Patient is able to perform ADLs but is limited secondary to pain. Takes chronic narcotics Plan for GETA with A-line Medications/Allergies Home Medications Medication Instructions Recorded Confirmed Last Taken Type allopurinol 100 mg tablet 100 mg PO DAILY 06/19/19 03/19/24 03/19/24 History gabapentin 800 mg tablet 800 mg PO TID 06/19/19 03/19/24 03/19/24 History methocarbamol 500 mg tablet 500 mg PO BID PRN Spasms 03/02/2703/19/24 03/19/24 History albuterol sulfate 90 mcg/actuation 2 puff inhalation Q6H PRN 11/11/20 03/19/24 01/27/21 History aerosol inhaler (ProAir HFA) Shortness Of Breath dicyclomine 10 mg capsule 10 mg PO BID 12/15/20 03/19/24 03/19/24 History Bone growth Stimulator [id number] #1 ea 12/02/22 02/20/24 Unknown Rx Bone growth stimulator #1 ea 12/19/22 02/20/24 Unknown Rx eszopiclone 2 mg tablet 1 mg PO DAILY 01/10/23 03/19/24 03/19/24 History loratadine 10 mg tablet (Allergy 10 mg PO DAILY 01/10/23 03/19/24 03/19/24 History Relief (loratadine)) custom inserts #1 ea 02/28/23 02/20/24 Unknown Rx hydrocodone 10 mg-acetaminophen 1 tab PO Q5H PRN Pain (Scale Score 06/14/23 03/19/24 03/20/24 History 325 mg tablet 7-10) losartan 25 mg tablet 25 mg PO DAILY #90 tabs 07/14/23 03/19/24 03/19/24 Rx nitroglycerin 0.4 mg sublingual 0.4 mg sublingual Q5M PRN chest 08/17/23 03/19/24 Unknown Rx tablet pain #30 tabs dulaglutide 0.75 mg/0.5 mL mg SUBCUT 09/12/23 02/20/24 03/13/24 History subcutaneous pen injector (Trulicity) metoprolol succinate 25 mg 25 mg PO DAILY #90 tabs 11/28/23 03/19/24 03/20/24 Rx tablet,extended release 24 hr Custom Insole 5514 #1 ea 12/19/23 02/20/24 Unknown Rx aspirin 81 mg tablet,delayed 81 mg PO DAILY #90 tabs 12/26/23 03/19/24 03/12/24 Rx release (Adult Aspirin Regimen) atorvastatin 80 mg tablet 80 mg PO DAILY #90 tabs 01/03/24 02/20/24 Unknown Rx clopidogrel 75 mg tablet 75 mg PO DAILY #90 tabs 01/03/24 03/19/24 03/12/24 Rx desvenlafaxine succinate 100 mg See Rx Instructions .Route 02/20/24 03/19/24 03/19/24 Rx tablet,extended release 24 hr .COMPLEX #30 tabs propranolol 10 mg tablet 10 mg PO TID #90 tabs 02/20/24 03/19/24 03/20/24 Rx aripiprazole 20 mg tablet See Rx Instructions .Route 02/29/24 03/19/24 03/19/24 Rx .COMPLEX #30 tabs hydroxyzine HCl 25 mg tablet 25 mg PO TID PRN anxiety #90 tabs 03/11/24 03/19/24 03/20/24 Rx trihexyphenidyl 2 mg tablet See Rx Instructions .Route 03/11/24 03/19/24 03/19/24 Rx .COMPLEX #90 tabs Allergies Allergy/AdvReac Type Severity Reaction Status Date / Time metformin Allergy Intermediate ALGY-Rash Verified 03/20/24 09:24 zolpidem [From Ambien] Allergy ADR-Confusi Verified 03/20/24 09:24 on COUNTS INCLUDE 234 BEDS AT THE [facility] Anesthesia Medical History Hypertension Cancer of right kidney Bipolar II disorder Psychiatric care Right renal mass [place] use On combination antipsychotic drug therapy Bipolar disorder, in partial remission, most recent episode hypomanic Surgical History History of right nephrectomy 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 Dr. Concepcion at [facility] Family History Mother , IN HER 70'S CAD (coronary artery disease) HEART DISEASE,SKIN CANCER Father , AT AGE 55 CAD (coronary artery disease) HEART ATTACK Other Diabetes Social History Smoking and tobacco/nicotine status: unknown if used tobacco/nicotine Second hand smoke exposure: No Alcohol intake: never Marital status: Current occupational status: disabled Data Anesthesia 03/20/24 10:00 BMP 03/20/24 10:00 Sodium 142 Potassium 4.8 Chloride 104 Carbon Dioxide 29 BUN 16 Creatinine 0.7 Glucose 110 Calcium 9.7 Liver Function 03/20/24 Range/Units 10:00 Total Bilirubin 0.5 (0.15-1.2) mg/dL AST 24 (0-32) U/L ALT 24 (0-33) U/L Alkaline Phosphatase 73 (35-105) U/L Albumin 4.4 (3.5-5.2) g/dL Urine 03/20/24 Range/Units 09:40 Urine Color Yellow (Yellow) Urine Appearance Cloudy A (CLEAR) Urine pH 5.5 (5-7) Ur Specific [place] 1.031 H (1.005-1.030) Urine Protein Negative (Negative) Urine Glucose (UA) Negative (Normal) Urine Ketones Negative (Negative) Urine Nitrate Negative (Negative) Urine Bilirubin Negative (Negative) Ur Leukocyte Esterase Negative (Negative) Urine RBC 3-5 (0-2) /hpf Urine WBC 11-20 H (0-5) /hpf Blood Bank 03/20/24 10:00 Blood Type A Positive Rho(D) Type Rh positive Antibody Screen Negative Cardiac Studies: 2 No Data to Display
[2024-03-20] MEDS: sodium chloride 0.9% 1,000 ML 30 ML IV (11:04)
[2024-03-20 11:06] LABS: Bilirubin Urine Negative (Negative); Blood Urine Negative (Negative); Glucose Urine UA Negative (Normal); Ketones Urine Negative (Negative); Leukocyte Esterase Urine Negative (Negative); Nitrate Urine Negative (Negative); Protein Urine Negative (Negative); Specific Gravity, Urine 1.025 (1.005-1.030); Urine Appearance Clear (CLEAR); Urine Color Yellow (Yellow); Urobilinogen Urine 0.2 mg/dL (Negative); pH Urine 6.5 (5-7)
[2024-03-20 11:11] LABS: Add Urine Microscopic? YES; Bacteria Urine None Seen /hpf; Hyaline Casts Urine 1.21 /lpf; RBC Urine 0-2 /hpf (0-2); Squamous Epithelial Cell Urine 0-5 /hpf (0-5); WBC Urine 0-5 /hpf (0-5)
--- NOTE | 2024-03-20 11:26 | PC.NURSE ---
patient ua came back as uti. Dr. Cantu nurse to see patient and informed need to cancel procedure today and get uti cleared up before surgery. Dr. Cantu office will contact patient to reschedule surgery after uti has been resolved.
[2024-03-20 11:27] LABS: UA Slide Review UA Slide Review Perf
[2024-03-20 11:28] LABS: Add Urine Culture? No
== END ==
PROVIDERS: Student in an Organized Health Care Education/Training Program; PCP Family Medicine; Visit Provider Orthopaedic Surgery
PROC: (CPT 22612; 2024-03-20 10:25)
PROC: (CPT 27280; 2024-03-20 10:25)
DX: M48.062 Spinal stenosis, lumbar region with neurogenic claudication (principal); Z53.8 Procedure and treatment not carried out for other reasons
CPT/HCPCS: 80053; 81001; 86850; 86900; J1100; J2405; J2704; J3010; J3490; J7030

== ENCOUNTER → 2024-05-07 14:59 | Outpatient (BNVA) | payer MEDICAID, SELFPAY | PROVIDERS: PCP Family Medicine; Visit Provider Orthopaedic Surgery | DX: M48.062 Spinal stenosis, lumbar region with neurogenic claudication (principal); Z01.818 Encounter for other preprocedural examination | CPT/HCPCS: 36415; 80053; 81001; 85025; 99214 ==

== ENCOUNTER → 2024-06-04 09:09 | Outpatient (BNVA) | payer MEDICAID, SELFPAY | PROVIDERS: PCP Family Medicine; Visit Provider Family Medicine | DX: Z01.818 Encounter for other preprocedural examination (principal) | CPT/HCPCS: 80053; 81003; 85025 ==

== ENCOUNTER → 2024-06-05 10:56 | Outpatient (BNVA) | payer MEDICAID, SELFPAY | PROVIDERS: PCP Family Medicine; Visit Provider Podiatrist Foot & Ankle Surgery | DX: E11.8 Type 2 diabetes mellitus with unspecified complications (principal); M21.379 Foot drop, unspecified foot; G62.9 Polyneuropathy, unspecified; E11.9 Type 2 diabetes mellitus without complications; M76.71 Peroneal tendinitis, right leg; E11.42 Type 2 diabetes mellitus with diabetic polyneuropathy | CPT/HCPCS: 99213 ==

== ENCOUNTER 2024-06-12 19:48 | Inpatient (IN) | payer MEDICAID, SELFPAY ==
[2024-06-12] VITALS (14 sets, daily range): BP systolic 99–152; BP diastolic 55–100; PULSE 72–98; RESP 15–26; TEMP 36.3–37.2; O2SAT 90–100; BMI 41.7; BMI 41.5
[2024-06-12 11:31] LABS: Glucose Point of Care 131 mg/dL (70-110)
[2024-06-12] MEDS: sodium chloride 0.9% 1,000 ML 30 ML IV (12:34)
--- NOTE | 2024-06-12 12:35 | ANES.PREANE2 ---
Pre-Anesthetic Assessment Height/Weight: Height 5 ft 4 in Weight 243 lb Temp Pulse Resp BP Pulse Ox O2 Del Method 97.3 F L 72 17 152/100 96 Room Air 06/12/24 11:06 06/12/24 11:06 06/12/24 11:06 06/12/24 11:06 06/12/24 11:06 06/12/24 11:06 Preop Diagnosis: Lumbar stenosis with neurogenic claudication Operation Date: 06/12/24 12:35 Proposed Procedures p Spinal Fusion PSF(Not Applicable) - Jayesh Cantu DO s Posterior Lumbar Interbody Fusion PLIF(Not Applicable) - Jayesh Cantu DO s Lumbopelvic Fixation(Not Applicable) - Jayesh Cantu DO s Sacroiliac Joint Fusion SI Joint Fusion(Bilateral) - Jayesh Cantu DO Was Beta Arielle taken within 24 hours: Yes Was Clonidine taken within 24 hours: N/A Last intake: Intake Last Liquid Date 06/11/24 Last Liquid Time 23:30 Last Solid Date 06/11/24 Last Solid Time 23:30 Social Tobacco and No alcohol Exam alert, oriented x 3, clear to auscultation bilaterally and regular rate & rhythm Airway Submandibular: within normal limits Cervical ROM: within normal limits Mallampati: Class II Dentition: full Anesthetic Plan ASA status: 3 Anesthesia: General Other: No prior issues with anesthesia NPO since yesterday Significant history for CAD, s/p PCI 2 years ago. On chronic Plavix last taken 06/05/2024 Prior CVA, no residual symptoms Hypertension on losartan propranolol and metoprolol Takes chronic hydrocodone 10?325 5 times daily Current smoker DM on dulaglutide last taken 05/30/2024 Labs reviewed acceptable for procedure EKG sinus rhythm Type and screen ordered Plan for GETA Medications/Allergies Home Medications ?Medication ?Instructions ?Recorded ?Confirmed ?Last Taken ?Type allopurinol 100 mg tablet 100 mg PO DAILY 06/19/19 06/11/24 06/11/24 History gabapentin 800 mg tablet 800 mg PO TID 06/19/19 06/11/24 06/11/24 History methocarbamol 500 mg tablet 500 mg PO BID Spasms 06/19/19 06/11/24 06/11/24 History albuterol sulfate 90 mcg/actuation 2 puff inhalation Q6H PRN 11/11/20 06/11/24 01/27/21 History aerosol inhaler (ProAir HFA) Shortness Of Breath dicyclomine 10 mg capsule 10 mg PO BID 12/15/20 06/11/24 06/11/24 History Bone growth Stimulator [id number] #1 ea 12/02/22 06/05/24 Unknown Rx Bone growth stimulator #1 ea 12/19/22 06/05/24 Unknown Rx eszopiclone 2 mg tablet 1 mg PO DAILY 01/10/23 06/11/24 06/11/24 History loratadine 10 mg tablet (Allergy 10 mg PO DAILY 01/10/23 06/11/24 06/11/24 History Relief (loratadine)) custom inserts #1 ea 02/28/23 06/05/24 Unknown Rx hydrocodone 10 mg-acetaminophen 1 tab PO Q5H Pain (Scale Score 06/14/23 06/12/24 06/12/24 09:30 History 325 mg tablet 7-10) losartan 25 mg tablet 25 mg PO DAILY #90 tabs 07/14/23 06/11/24 06/11/24 Rx nitroglycerin 0.4 mg sublingual 0.4 mg sublingual Q5M PRN chest 08/17/23 06/11/24 Unknown Rx tablet pain #30 tabs dulaglutide 0.75 mg/0.5 mL mg SUBCUT 09/12/23 06/05/24 05/30/24 History subcutaneous pen injector (Trulicity) metoprolol succinate 25 mg 25 mg PO DAILY #90 tabs 11/28/23 06/12/24 06/12/24 09:30 Rx tablet,extended release 24 hr Custom Insole 5514 #1 ea 12/19/23 06/05/24 Unknown Rx aspirin 81 mg tablet,delayed 81 mg PO DAILY #90 tabs 12/26/23 06/12/24 06/05/24 Rx release (Adult Aspirin Regimen) atorvastatin 80 mg tablet 80 mg PO DAILY #90 tabs 01/03/24 06/12/24 06/12/24 Rx Bone Growth Stimulator #1 ea 03/25/24 06/05/24 Unknown Rx clopidogrel 75 mg tablet 75 mg PO DAILY #90 tabs 04/15/24 06/12/24 06/05/24 Rx hydroxyzine HCl 50 mg tablet 50 mg PO TID PRN anxiety #90 tabs 05/21/24 06/11/24 Unknown Rx propranolol 10 mg tablet 10 mg PO TID #90 tabs 05/21/24 06/12/24 06/12/24 09:30 Rx Bone Growth Stimulator #1 ea 06/04/24 06/05/24 Unknown Rx aripiprazole 20 mg tablet 20 mg PO DAILY 06/11/24 06/11/24 06/11/24 History desvenlafaxine succinate 100 mg 100 mg PO DAILY 06/11/24 06/11/24 06/11/24 History tablet,extended release 24 hr trihexyphenidyl 2 mg tablet 2 mg PO TID 06/11/24 06/11/24 06/11/24 History Allergies Allergy/AdvReac Type Severity Reaction Status Date / Time metformin Allergy Intermediate ALGY-Rash Verified 06/05/24 10:51 zolpidem (From Ambien) Allergy ADR-Confusi Verified 06/05/24 10:51 on Current Medications Generic Name Dose Route Start Last Admin Trade Name Freq PRN Reason Stop Dose Admin Sodium Chloride 1,000 mls @ 30 mls/hr 06/12/24 11:00 06/12/24 12:34 Sodium Chloride 0.9% IV 06/13/24 10:59 30 mls/hr .Q24H ALICIA Administration PFSH Anesthesia Medical History Hypertension Cancer of right kidney Bipolar II disorder Psychiatric care Right renal mass [place] use On combination antipsychotic drug therapy Bipolar disorder, in partial remission, most recent episode hypomanic Surgical History History of right nephrectomy 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 Dr. Concepcion at [facility] Family History Mother , IN HER 70'S CAD (coronary artery disease) HEART DISEASE,SKIN CANCER Father , AT AGE 55 CAD (coronary artery disease) HEART ATTACK Other Diabetes Social History Smoking and tobacco/nicotine status: current every day tobacco/nicotine user Second hand smoke exposure: No Alcohol intake: never Marital status: Current occupational status: disabled Data Anesthesia Cardiac Studies: No Data to Display
--- NOTE | 2024-06-12 13:46 | W.PM.OPSFHP ---
Same Day Surgery H&P Indication for Procedure/HPI DATE OF PROCEDURE: June 12, 2024 CHIEF COMPLAINT/INDICATIONFOR SURGICAL PROCEDURE: Low back pain and leg pain PREOP DIAGNOSIS: Lumbar stenosis with neurogenic claudication PLANNED PROCEDURE: Operation Date: 06/12/24 12:35 Proposed Procedures p Spinal Fusion PSF(Not Applicable) - Jayesh Cantu, DO s Posterior Lumbar Interbody Fusion PLIF(Not Applicable) - Jayesh Cantu, DO s Lumbopelvic Fixation(Not Applicable) - Jayesh Cantu, DO s Sacroiliac Joint Fusion SI Joint Fusion(Bilateral) - Jayesh Cantu, DO Medications/Allergies* Home Medications ?Medication ?Instructions ?Recorded ?Confirmed ?Type allopurinol 100 mg tablet 100 mg PO DAILY 06/19/19 06/11/24 History gabapentin 800 mg tablet 800 mg PO TID 06/19/19 06/11/24 History methocarbamol 500 mg tablet 500 mg PO BID Spasms 06/19/19 06/11/24 History albuterol sulfate 90 mcg/actuation 2 puff inhalation Q6H PRN 11/11/20 06/11/24 History aerosol inhaler (ProAir HFA) Shortness Of Breath dicyclomine 10 mg capsule 10 mg PO BID 12/15/20 06/11/24 History eszopiclone 2 mg tablet 1 mg PO DAILY 01/10/23 06/11/24 History loratadine 10 mg tablet (Allergy 10 mg PO DAILY 01/10/23 06/11/24 History Relief (loratadine)) hydrocodone 10 mg-acetaminophen 1 tab PO Q5H Pain (Scale Score 06/14/23 06/12/24 History 325 mg tablet 7-10) dulaglutide 0.75 mg/0.5 mL mg SUBCUT 09/12/23 06/05/24 History subcutaneous pen injector (Trulicity) aripiprazole 20 mg tablet 20 mg PO DAILY 06/11/24 06/11/24 History desvenlafaxine succinate 100 mg 100 mg PO DAILY 06/11/24 06/11/24 History tablet,extended release 24 hr trihexyphenidyl 2 mg tablet 2 mg PO TID 06/11/24 06/11/24 History Allergies/Adverse Reactions Allergy/AdvReac Type Severity Reaction Status Date / Time metformin Allergy Intermediate ALGY-Rash Verified 06/05/24 10:51 zolpidem (From Ambien) Allergy ADR-Confusi Verified 06/05/24 10:51 on Current Medications: Generic Name Dose Route Start Last Admin Trade Name Isabel PRN Reason Stop Dose Admin Sodium Chloride 1,000 mls @ 30 mls/hr 06/12/24 11:00 06/12/24 12:34 Sodium Chloride 0.9% IV 06/13/24 10:59 30 mls/hr .Q24H ALICIA Administration Pertinent History/Comorbid Conditions* Medical History (Updated 12/23/23 @ 20:47 by Gregory Curtis DPM) Hypertension Cancer of right kidney Bipolar II disorder Psychiatric care Right renal mass [place] use On combination antipsychotic drug therapy Bipolar disorder, in partial remission, most recent episode hypomanic Surgical History (Updated 04/13/22 @ 10:00 by Zane Patricio MD) History of right nephrectomy 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 Dr. Concepcion at [facility] Family History (Updated 12/15/20 @ 08:38 by GIO Peng) Father, AT AGE 55 Mother, IN HER 70'S Diabetes CAD (coronary artery disease) Mother HEART DISEASE,SKIN CANCER Father HEART ATTACK Social History Smoking and tobacco/nicotine status: current every day tobacco/nicotine user Second hand smoke exposure: No Alcohol intake: never Marital status: Current occupational status: disabled Pertinent Exam Findings alert, oriented x 3 and procedure specific exam findings Recommendations Surgery/Procedure today Coding Level of Care Code Acute Code for Chg Fwd
[2024-06-12] MEDS: fentaNYL 50 mcg/mL INJ 2mL IVP (13:56)
[2024-06-12] MEDS: ceFAZolin 2,000 mg SDV 2000 MG IVP ×2 (14:28→21:37)
[2024-06-12] MEDS: VANCOMYCIN ADD-Vantage 1,000 MG VIAL 1000 MG XX (15:41)
[2024-06-12] MEDS: heparin, porcine 1,000 unit/mL INJ 10 mL 10000 UNIT IRRIGATION (15:41)
[2024-06-12] MEDS: lidocaine-epi 1% 20 mL INJ 10 ML INJECTION (15:42)
--- NOTE | 2024-06-12 16:42 | XR_ITS ---
WS: [id number] XR lumbar spine 2-3V* [id number] REASON FOR EXAM: OR PICS FINDINGS: Instrumentation of the L5-S1 disc space from a left lateral oblique approach. XR/XR lumbar spine 2-3V* [id number] IMPRESSION: L5-S1 disc space procedure as above.
--- NOTE | 2024-06-12 19:22 | P.OP_ITS ---
Operative Report Date of procedure: June 12, 2024 Pre-op diagnosis: Lumbar stenosis with neurogenic claudication Post-op diagnosis: same Procedure done: 1. L3 to pelvis posterior spine fusion 2. L3 to S1 posterior spine instrumentation 3. Lumbopelvic instrumentation 4. L5/S1 interbody fusion 5. L5/S1 interbody cage 6. Right open SI fusion 7. Left open SI fusion 8. L3-4 laminectomy with partial facetectomies 9. L4-5 laminectomy with partial facetectomies 10. L5/S1 laminectomy with partial facetectomies 11. Use of computer navigation/stereotactic for the spine 12. Bone marrow aspirate from right iliac crest 13. Use of autograft from same incision 14. Use of allograft Surgeon: Jayesh Cantu DO Estimated blood loss (mL): 700 Procedure: 1. L3 to pelvis posterior spine fusion 2. L3 to S1 posterior spine instrumentation 3. Lumbopelvic instrumentation 4. L5/S1 interbody fusion 5. L5/S1 interbody cage 6. Right open SI fusion 7. Left open SI fusion 8. L3-4 laminectomy with partial facetectomies 9. L4-5 laminectomy with partial facetectomies 10. L5/S1 laminectomy with partial facetectomies 11. Use of computer navigation/stereotactic for the spine 12. Bone marrow aspirate from right iliac crest 13. Use of autograft from same incision 14. Use of allograft Patient brought to the operative suite after undergoing anesthesia was placed in the prone position. All areas impingement well-padded. Patient is prepped and draped in normal sterile fashion. Biplanar fluoroscopy was brought in order to place the anterior cages. Using the AP fluoroscopy the with the body was measured in the skin incision made exactly 1 body with lateral on the left side to the interbody space. Attention was brought to doing the interbody cage at L5-S1. This was done by using the ostiaomesh from spineology. Skin incision was made lateral to the disc space on AP fluoroscopy. The starting pin was inserted this has the ability to have neurostimulation. Ensured that the nerve was not compromised during the procedure. The neurostimulator tube was docked in Codman's triangle. This was just anterior to the transverse process. And lateral to the facet joint. The tube was then placed over the neurostimulator. This is the working tube that I will be working through to place the cage. A drill was then inserted under AP and lateral fluoroscopy. This was then followed by shaver. Shaver was backed in and out in order to get good endplate scraping. And then the forward pushing and the backward pushing scrapers of the endplates were then used. Pituitaries used to remove disc material. The space was then irrigated. Then the [place] mesh was then inserted into the disc space. AP lateral fluoroscopy ensured there is good position. And then the ostial mesh was packed with bone graft 12 segments or 2 tubes or 4 cc of bone graft were used in order to facilitate placement of the L5-S1 interbody cage. Skin incisions made using the previous skin incision extending slightly above and below. The thoracolumbar fascia was split and subperiosteal dissection was made out to the transverse process of L3 down to L5 bilaterally as well as the sacral ala bilaterally. Sacrum and SI joints were dissected out as well. Next attension was was brought to the bone marrow aspirate. This was done by using the Evernote bone marrow aspiration kit. The iliac crest was identified and through a separate incision through the fascia and the bone marrow aspiration kit was inserted into the right iliac crest. Bone marrow aspirate was taken 20 cc. This was mixed with the allograft. Next attention was brought to placing the fiducial for the C-arm. This is going to be used for the computer navigation. 2 pins were placed into the right iliac crest which were later moved to the end of the case. The fiducial was attached. C-arm was brought in and then spun around the patient. The information from serum was then later used after is loaded the computer for the placement of pedicle screws. Next attention was brought to placing the pedicle screws. This was done at L3 bilaterally L4 bilaterally, L5 bilaterally. And S1 bilaterally. The computer navigated awl was inserted into the pedicle. Followed by the pedicle feeler. Followed by placement of the screws using the computer navigation. At all these levels. Next attention was placing the iliac screws. This was done using the computer navigated awl. This is placed through the ala across the SI joint into the iliac crest. Then followed by the pedicle feeler. Followed by computer navigated tap. 70 mm 9.5 millimeter pedicle screws were then placed into the iliac crest. This was done bilaterally. A 70 mm screw was placed on the left side. Next attention was brought to the open SI joint fusions. This was done by using the computer navigated awl crossing the SI joint. Through direct visualization as well. The pedicle feeler was used to make sure was crossed no breaches. The canal was then filled with bone graft. And then a computer navigated SI joint fusion screws placed across the SI joint. This process was done on both the right and the left side. Once all the screws were placed attention was then brought to doing the laminectomy at L3-4. At this point the spinous process was taken down at L3-4. High-speed bur was used to take down the laminectomy. The facet joints were also taken down using the high-speed bur burring completely out so that the L3 n erves were identified. The facet was taken down and the medial aspect of the facet up to the pedicle was taken down bilaterally of the L4 pedicle. Using Kerrison rongeur. Ligamentum flavum was taken down. However the dura was completely opened and felt to be adequately decompressed. The L3 nerves were traced around the L3 pedicle out where the foramen was in the L4 nerves were traced around the L4 pedicles. Laminectomy was performed at L4 at the L4-5 level. She had a previous laminectomy on the left at this level. Lamina was taken down with a high-speed bur medial aspect of facet joints were taken down the high-speed bur curved. Kerrison we reviewed used to remove the remaining bone. The ligament flavum was taken down from L4-L5. The L4 nerve roots were traced out the L4-5 foramen and the L5 nerve was traced around the L5 pedicles bilaterally. The dura fluid up to the top there is significant stenosis at this level and significant thickening of the ligamentum flavum. Was brought to the L5-S1 level. An L5 laminectomy was performed using high- speed bur the spinous process was taken down using the rongeur. Lamina was thinned out Kerrison was used to take down the lamina. Then the medial aspect of facet joints were taken down and again the Kerrison was used to take the remaining bone up to the pedicle. Ligamentum flavum was taken down from L5-S1. Dura was found to be in good repair. The L5's nerves were traced out the L5-S1 foramen and the S1 nerves were traced around the S1 pedicle. Wounds were then irrigated. The alfonso was then attached from L3, L4, L5, S1 and into the iliac screw completing the lumbopelvic fixation. The screw caps were then torqued into position. This was done bilaterally. Next attention was brought to decorticating the transverse processes offrom L3 down to L5 bilaterally and sacral ala bilaterally as well as the SI joints. The auto and allograft were packed into the lateral gutters. Osteoamp bone graft was then packed into the gutters. And across the SI joint. Vancomycin powder was placed deep drain was placed and wound was closed in layered fashion with Vicryl and Monocryl. Sterile dressings were applied vitor rodriguez was transferred to the PACU in stable condition.
[2024-06-12] MEDS: oxyCODONE-APAP 10-325 mg Tablet PO (21:37)
[2024-06-12] MEDS: gabapentin 400 mg Capsule 800 MG PO (21:38)
[2024-06-12] MEDS: propranolol 20 mg Tablet 10 MG PO (21:38)
[2024-06-12] MEDS: lactated ringers 1,000 ML 90 ML IV (21:42)
[2024-06-12] MEDS: HYDROMORPHONE HCL 0.5 MG/0.5 ML INJ IVP (22:42)
[2024-06-13] VITALS (11 sets, daily range): BP systolic 91–121; BP diastolic 60–83; PULSE 73–97; RESP 16–24; TEMP 36.3–37.4; O2SAT 90–98; BMI 41.8
[2024-06-13] MEDS: ketorolac 30 mg/mL INJ IVP ×2 (00:16→14:33)
[2024-06-13] MEDS: hyDROXYzine 25 mg Capsule 50 MG PO (00:19)
[2024-06-13] MEDS: ceFAZolin 2,000 mg SDV 2000 MG IVP ×2 (03:58→11:40)
--- OUTSIDE RECORDS SUMMARY | 2024-06-13 04:26 | XMS_ITS | Encounter Summary ---
Author Organization [facility] Address [address] [place] [address] Care Team Providers Care Nut And Bolt Assembler Name Role Phone Sincere Hollingsworth MD Primary Care Provider Unavailable Encounter Details Date Type Department Care Team (Latest Contact Info) Description 10/25/2004 Outpatient Historical [facility] Services [address] [place] [address] Arnoldo Pope MD [address] [place] [id number] TENSION HEADACHE (Primary Dx) Social History Tobacco Use Types Packs/Day Years Used Date Smoking Tobacco: Never Assessed Comments Unknown Sex and Gender Information Value Date Recorded Sex Assigned at Not on file Legal Sex 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
--- OUTSIDE RECORDS SUMMARY | 2024-06-13 04:26 | XMS_ITS ---
Author Organization [facility] Address [address] [place], [place] [id number] Care Team Providers Care Payroll Processor Name Role Phone Jacob HINKLE, Jackie Primary Care Provider Mak Blanchard MD, Nehemiah Unavailable [phone] Allergies Allergen (clinical drug ingredient) Drug/Non Drug Allergy documented on EMR Reaction Allergy Type Onset Date Status zolpidem Ambien Unknown Drug Allergy Active Results Component Value Reference Range Notes Urine tox screen / MS if ind icated Reviewed date:06/11/2024 01:54:33 PM Interpretation:Consistent Performing Lab: Notes/Report: Consistent REASON FOR VISIT Patient states she is here today for low back pain. Medications Medication SIG (Take, Route, Frequency, Duration) Notes Start Date End Date Status atorvastatin 80 mg 1 tab(s) orally once a day for 30 day(s) Active Atarax 50 1 tab orally at bedtime Active diclofenac topical 1% as directed applie d topically 4 times a day 12/27/2023 Active desvenlafaxine 100 mg 1 tab orally once a day Active dicyclomine 10 mg 1 cap orally 2 times a day Active Aspirin EC 81 mg 1 tab(s) orally once a day for 30 day(s) Active acetaminophen-hydrocodo ne 325 mg-10 mg 1-2 tabs orally Q4-6H prn pain (max 5/day; hold within 4H of planned sleep) for 28 days Do not fill prior to 06/17/24. ICD-10: G89.29 06/11/2024 Active ARIPiprazole 20 mg 1 tab orally once a day Active acetaminophen-hydrocodo ne 325 mg-10 mg 1-2 tabs orally Q4-6H prn pain (max 5/day; hold within 4H of planned sleep) for 28 days Do not fill prior to 07/15/24. ICD-10: G89.29 06/11/2024 Active albuterol 0.63 mg/3 mL (0.021%) 3 mL by nebulizer 3 times a day for 30 day(s) Active trihexyphenidyl 2 mg 1 tab orally 3 time s a day Active Ventolin HFA 90 mcg/inh 2 puffs inhaled every 6 hours Active Trulicity Pen 0.75 mg/0.5 mL as directed subcutaneously once a week Active zaleplon 10 mg 1 cap orally once a day (at bedtime), as needed for insomnia Active Vitamin B12 500 mcg 1 tab orally once a day Active nitroglycerin 0.4 mg 1 tab(s) sublingual ly every 5 minutes Active propranolol 10 mg 1 tab orally 3 times a day for tremors Active Plavix 75 mg 1 tab(s) orally once a day for 30 day(s) Active QUEtiapine 200 mg 1 tab orally at bedtime Active Narcan 4 mg/0.1 mL as directed intranasally once 08/06/2020 Active hydrOXYzine pamoate 50 mg 1 tab(s) orally 3 times a day Active gabapentin 800 mg 1 tab po orally TID Active Metoprolol Succinate ER 25 mg 1 tab(s) orally once a day for 30 day(s) 04/11/2023 Active losartan 25 mg 1 tab(s) orally once a day for 30 day(s) 04/11/2023 Active Mucinex 600 mg 1 tab orally every 1 2 hours Active eszopiclone 2 mg 1 tab(s) orally once a day (at bedtime) Active Social History Tobacco Use: Social History Observation Description Date Details (start date - stop date) Former Smoker NA - 06/08/2020 Tobacco use: Question Answer Notes : former smoker When did you stop smoking? 06/08/2020 AUDIT-C (Standard) Question Answer Notes Did you have a drink containing alcohol in the p ast year? No Points 0 Interpretation Negative Problems Problem Type SNOMED Code ICD Code Onset Dates Problem Status W/U Status Risk Notes Problem Essential hypertension (34352011) Essential (primary) hypertension (I10) Active confirmed Vital Signs Temperature 97.5 degrees Fahrenheit 06/12/19 25 Blood pressure systolic 143 mm Hg 06/12/19 25 Blood pressure diastolic 72 mm Hg 025 Height 65 in 06/11/2024 Weight 243.2 lbs 06/11/2024 Oximetry 94 % 06/11/2024 BMI 40.47 kg/m2 06/11/2024 Encounters Encounter Location Date Provider Diagnosis [facility] [address], [place] [id number] 06/11/2024 Nehemiah Blanchard Vertebrogenic low ba ck pain M54.51 ; Other chronic pain G89.29 ; Essential (primary) hypertension I10 ; Hypersomnia, unspecified G47.10 and jail (current) use of opiate analgesic Z79.891 Assessments Encounter Date Diagnosis (ICD Code) Assessment Notes Treatment Notes Treatment Clinical Notes Section Notes 06/11/2024 Vertebrogenic low back pain (ICD-10 - M54.51) Chronic axial lumbosacral spine pain. 06/11/2024 Other chronic pain (ICD-10 - G89.29) Patient reports that taking her pain medication allows her to care for her home. Plan to continue oral opioid medication management. 06/11/2024 Essential (primary) hypertension (ICD-10 - I10) Education sheet given at today's visit; patient to address with PCP. 06/11/2024 Hypersomnia, unspecified (ICD-10 - G47.10) Plan to continue to restrict opioid use in relation to sleep for safety concerns. 06/11/2024 jail (current) use of opiate analgesic (ICD-10 - Z79.891) 2022 opioid (OUD) risk tool score = 4. This places the patient in the high risk category, warranting more frequent screening. Plan 2 month visit pending continued compliance with patient's Treatment Agreement. Plan urine toxicology screen today to monitor for presence of any unprescribed or illicit controlled substance(s), as well as prescribed hydrocodone. 06/11/2024 Other The service was provided by LAURIE Medina, as part of the ongoing care plan established by Nehemiah Blanchard MD, who was present in the office for direct supervision during the encounter. Plan Of Treatment Medication Medication Name Sig Start Date Stop Date Notes acetaminophen-hydrocodon e 325 mg-10 mg 1-2 tabs orally Q4-6H prn pain (max 5/day; hold within 4H of planned sleep) for 28 days 06/11/2024 Do not fill prior to 06/17/24. ICD-10: G89.29 acetaminophen-hydrocodon e 325 mg-10 mg 1-2 tabs orally Q4-6H prn pain (max 5/day; hold within 4H of planned sleep) for 28 days 06/11/2024 Do not fill prior to 07/15/24. ICD-10: G89.29 Treatment Notes Assessment Notes Vertebrogenic low back pain Chronic axia l lumbosacral spine pain. Other chronic pain Patient reports that taking her pain medication allows her to care for her home. Plan to continue oral opioid medication management. Essential (primary) hypertension Educati on sheet given at today's visit; patient to address with PCP. Hypersomnia, unspecified Plan to continu e to restrict opioid use in relation to sleep for safety concerns. intermediate accountant (current) use of opiate analge 2022 opioid (OUD) risk tool score = 4. This places the patient in the high risk category, warranting more frequent screening. Plan 2 month visit pending continued compliance with patient's Treatment Agreement. Plan urine toxicology screen today to monitor for presence of any unprescribed or illicit controlled substance(s), as well as prescribed hydrocodone. Other The service was prov ided by LAURIE Medina, as part of the ongoing care plan established by Nehemiah Blanchard MD, who was present in the office for direct supervision during the encounter. Next Appt Details Follow Up: 2 month Rx visit. , Reason: Provider Name:Nehemiah Lund son, 08/06/2024 03:20:00 PM, [facility] [place], [place], [id number], Progress Notes * NUPURNatalee GDOB:1965 (58 yo F)Acc No.[id number]:06/11/2024 Patient:?Natalee NULL Provider:?Nehemiah Blanchard :1965???Age:58 Y???Sex:Female D ate:06/11/2024 Address:[address] [place] [address] Pcp:Jackie James MD Subjective: * Chief Complaints: * ???1. Patient states she is here today for low back pain.. * HPI: ???Lumbar Spine:?58 year old female presents with c/o pain?for?chronic duration?in the bilateral lower back. This pain is described as constant aching. This pain extends into the hips and thighs. The back pain is aggravated by cold weather, arising from a seated position, and standing to do dishes or cook. This pain is somewhat alleviated with use of a heating pad and by lying down with elevated feet.?c/o tingling/numbness?in the RLE.?Denies : weakness.?Denies : injury:.?previous surgery:?L4-5 laminectomy and partial facetectomy, performed at [facility] by Dr. Jayesh Cantu 07/09/21.?Previous Imaging/Studies:?Sleep study?on 04/26/17.?X-rays?of the L-spine on 10/07/20, 03/28/17 and 03/09/05.?MRI?of the L-spine on 10/07/20 and 03/28/17.?Interventional:?Interlaminar lumbar epidural steroid injection:?L5-S1 on 04/11/18 with great benefit and noted improvement of limb pain.?Left SI joint local anesthetic / steroid injection:?on 08/19/20 with good benefit to include lower extremity improvement, not long - lasting.?Left SI joint local anesthetic injection:?on 06/16/21 with good diagnostic benefit to include lower extremity improvement (patient declined to consider subsequent chance for left sacral RFA).?Radiofrequency nerve ablation:?bilateral L3, L4 medial branch, L5 dorsal ramus on 05/08/17 with a 50-60%decrease in pain post procedure in the affected area for > 3 years on left and maintained improvement on right; left L3, L4 medial branch and L5 dorsal ramus on 01/04/21 with good benefit to include lower extremity improvement.?Radiofrequency ablation of sacral innervation:?left side on 11/23/20 with good benefit for ~ 6 months (a prior?updated patient report).?Previous Therapy:?Previous therapy:?ice therapy with some benefit; heat therapy with history of benefit; injection therapy?(performed in [place], [place]) with history of?no benefit.?Medication history:?[place] 5/325; Robaxin 500 mg BID; Ultram 50 mg.?Medications:?[place] (hydrocodone / acetaminophen)?325 mg-10 mg, 1-2 tabs, orally, Q4-6H prn pain (max 5/day; hold within 4H of planned sleep), 28 days, 140, Refills 0.Notes: Prescriptions given (2) on 04/17/24. Patient reports good benefit, as evidenced by improved ability to perform self-care, dust and sit for longer periods of time to do embroidery and mert with quantity 36 and 0 prescription(s) remaining.Last fill date: 05/20/24.Last dose taken: 06/11/24.?Plavix (clopidogrel) and aspirin?are managed by Dr. Kraft; will address / send request for anticoagulation cessation recommendations as the need arises.?Non Compliance/Failure to Follow Treatment Agreement:?Failure to take medication as prescribed:?06/15/17 (short #21 [place]).? * Medical History:?Chronic jarad n, Low back pain, Lumbar spondylosis, disc disease, spinal stenosis and spondylolisthesis, Sacroiliitis, Mass of left foot, Ganglion of tendon sheath, left foot, Right ankle ligament tear per patient report, Fibromyalgia, Gastritis with hemorrhage, Chronic bipolar disorder, anxiety and depression, Cellulitis, Chest pain, Hallucinations, Hypercholesterolemia, Hypertension, Hypothyroidism, Headache and migraine, Chronic bronchitis, Right kidney cancer, Tobacco use (history of), COPD (history of chronic bronchitis and albuterol Rx), [place] x 3 and coronary stent placements per patient report, Diabetes mellitus type 2, Sleep disorder, hypersomnia (REM AHI = 18 per prior sleep study report), Obesity, morbid. * Surgical History:?Appendecto my , Abdominal hysterectomy and bilateral salpingo-oophorectomy , Nephrectomy, right, (cancer) performed at [facility] in [place], [place] by Dr. Concepcion, 03/15/21, L4-5 laminectomy and partial facetectomy, performed at [facility] by Dr. Jayesh Cantu, 07/09/21, Placement of stents, carotid artery, performed at [facility], 12/08/22. * Hospitalization/Major Diagno stic Procedure:?Disorientation and hallucinations, 2013, Possible stroke or reaction to medication, treated at [facility], 04/2018. * Medications:?Taking acetamin ophen-hydrocodone 325 mg-10 mg tablet 1-2 tabs orally Q4-6H prn pain (max 5/day; hold within 4H of planned sleep) , Taking albuterol 0.63 mg/3 mL (0.021%) solution 3 mL by nebulizer 3 times a day , Taking ARIPiprazole 20 mg tablet 1 tab orally once a day , Taking Aspirin EC(aspirin) 81 mg delayed release tablet 1 tab(s) orally once a day , Taking Atarax(hydrOXYzine) 50 mg 1 tab orally at bedtime , Taking atorvastatin 80 mg tablet 1 tab(s) orally once a day , Taking desvenlafaxine 100 mg tablet, extended release 1 tab orally once a day , Taking diclofenac topical 1% gel as directed applied topically 4 times a day , Taking dicyclomine 10 mg capsule 1 cap orally 2 times a day , Taking eszopiclone 2 mg tablet 1 tab(s) orally once a day (at bedtime) , Taking gabapentin 800 mg tablet 1 tab po orally TID , Taking hydrOXYzine pamoate 50 mg capsule 1 tab(s) orally 3 times a day , Taking losartan 25 mg tablet 1 tab(s) orally once a day , Taking Metoprolol Succinate ER(metoprolol) 25 mg tablet, extended release 1 tab(s) orally once a day , Taking Mucinex(guaiFENesin) 600 mg tablet, extended release 1 tab orally every 12 hours , Taking Narcan(naloxone) 4 mg/0.1 mL spray as directed intranasally once , Taking nitroglycerin 0.4 mg tablet 1 tab(s) sublingually every 5 minutes , Taking Plavix(clopidogrel) 75 mg tablet 1 tab(s) orally once a day , Taking propranolol 10 mg tablet 1 tab orally 3 times a day for tremors , Taking QUEtiapine 200 mg tablet 1 tab orally at bedtime , Taking trihexyphenidyl 2 mg tablet 1 tab orally 3 times a day , Taking Trulicity Pen(dulaglutide) 0.75 mg/0.5 mL solution as directed subcutaneously once a week , Taking Ventolin HFA(albuterol) 90 mcg/inh aerosol 2 puffs inhaled every 6 hours , Taking Vitamin B12(cyanocobalamin) 500 mcg tablet 1 tab orally once a day , Taking zaleplon 10 mg capsule 1 cap orally once a day (at bedtime), as needed for insomnia , Medication List reviewed and reconciled with the patient * Allergies:?Ambien. Objective: Therapeutic Interventions: Assessment: * Assessment: 1.?Vertebrogenic low back pa in - M54.51 (Primary)???2.?Other chronic pain - G89.29???3.?Essential (primary) hypertension - I10???4.?Hypersomnia, unspecified - G47.10???5.?intermediate accountant (current) use of opiate analgesic - Z79.891??? Plan: * Treatment: 2.?Other chronic pain? Notes: Patient reports that taking her pain medication allows her to care for her home. Plan to continue oral opioid medication management.?? 3.?Essential (primary) hyper tension? Notes: Education sheet given at today's visit; patient to address with PCP.?? 4.?Hypersomnia, unspecified? Notes: Plan to continue to restrict opioid use in relation to sleep for safety concerns.?? 5.?jail (current) use o f opiate analgesic?LAB: Urine tox screen / MS if indicated (Collection Date & Time - 06/11/2024 01:42 PM) Notes: 2022 opioid (OUD) risk tool score = 4. This places the patient in the high risk category, warranting more frequent screening. Plan 2 month visit pending continued compliance with patient's Treatment Agreement. Plan urine toxicology screen today to monitor for presence of any unprescribed or illicit controlled substance(s), as well as prescribed hydrocodone.?? 6.?Others? Continue acetaminophen-hydrocodone tablet, 325 mg-10 mg, 1-2 tabs, orally, Q4-6H prn pain (max 5/day; hold within 4H of planned sleep), 28 days, 140, Refills 0, Notes to Pharmacist: Do not fill prior to 06/17/24. ICD-10: G89.29;?Continue acetaminophen-hydrocodone tablet, 325 mg-10 mg, 1-2 tabs, orally, Q4-6H prn pain (max 5/day; hold within 4H of planned sleep), 28 days, 140, Refills 0, Notes to Pharmacist: Do not fill prior to 07/15/24. ICD-10: G89.29.?? Notes: The service was provided by LAURIE Medina, as part of the ongoing care plan established by Nehemiah Blanchard MD, who was present in the office for direct supervision during the encounter.?? * Procedure Codes:?37904 Urine Dip Cup, Modifiers: QW * Preventive Medicine:? ??Counseling:?Pain Management:?Follow-up Plan documented:?Yes ?Pain Screening:?6 ?BP Management?LIFESTYLE RECOMMENDATION:?Lifestyle education regarding hypertension - patient education sheet given on 06/11/2024 * Follow Up:?2 month Rx visit. * Images: * Electronic signature of Maxime Blanchard MD on 06/13/2024 at 04:25 AM LANDSCAPE ARCHITECT Sign off status: Pending * Provider:?Nehemiah Blanchard Date:?06/12/19 Generated for Rafal brown/Jevon/eToswaldosmitting on:?06/13/2024 04:25 AM LANDSCAPE ARCHITECT History and Physical Notes * HPI (History of Present Illness) Category Sub-Category Detail Notes Category Not es Lumbar Spine injury: tingling/numbness in the RLE pain in the bilateral low er back. This pain is described as constant aching. This pain extends into the hips and thighs. The back pain is aggravated by cold weather, arising from a seated position, and standing to do dishes or cook. This pain is somewhat alleviated with use of a heating pad and by lying down with elevated feet previous surgery: L4-5 laminectomy and partial facetectomy, performed at [facility] by Dr. Jayesh Cantu 07/09/21 weakness Medications [place] (hydrocodone / acetaminoph en) 325 mg-10 mg, 1-2 tabs, orally, Q4-6H prn pain (max 5/day; hold within 4H of planned sleep), 28 days, 140, Refills 0. Notes: Prescriptions given (2) on 04/17/24. Patient reports good benefit, as evidenced by improved ability to perform self-care, dust and sit for longer periods of time to do embroidery and mert with quantity 36 and 0 prescription(s) remaining. Last fill date: 05/20/24. Last dose taken: 06/11/24 Plavix (clopidogrel) and aspirin are man aged by Dr. Kraft; will address / send request for anticoagulation cessation recommendations as the need arises Interventional Left SI joint local anesthetic / steroid injection: on 08/19/20 with good benefit to include lower extremity improvement, not long - lasting Interlaminar lumbar epidural steroid injection: L5-S1 on 04/11/18 with great benefit and noted improvement of limb pain Radiofrequency nerve ablation: bilateral L3, L4 medial branch, L5 dorsal ramus on 05/08/17 with a 50-60% decrease in pain post procedure in the affected area for > 3 years on left and maintained improvement on right; left L3, L4 medial branch and L5 dorsal ramus on 01/04/21 with good benefit to include lower extremity improvement Radiofrequency ablation of s acral innervation: left side on 11/23/20 with good benefit for ~ 6 months (a prior updated patient report) Left SI joint local anesthetic injection : on 06/16/21 with good diagnostic benefit to include lower extremity improvement (patient declined to consider subsequent chance for left sacral RFA) Previous Therapy Previous therapy: ice therapy w ith some benefit; heat therapy with history of benefit; injection therapy (performed in [place], [place]) with history of no benefit Medication history: [place] 5/325; Robaxin 500 mg BID; Ultram 50 mg Previous Imaging/Studies MRI of the L-spine o n 10/07/20 and 03/28/17 Sleep study on 04/26/17 X-rays of the L-spine on , 03/28/17 and 03/09/05 Non Compliance/Failure to Fo llow Treatment Agreement Failure to take medication as prescribed: 06/15/17 (short #21 [place]) Physical Examination Category Sub-Category Detail Notes Section Note s ENT Tongue: piercing noted Hearing: grossly intact Chest Shape and expansion: normal expa nsion, equal bilaterally, respirations even and unlabored Neurological Psychiatric: alert and conversant; flat a ffect Musculoskeletal Gait: broad-based; bilateral AF Os in place Outcome Assessment: Findings:: Negative, care pl an not required Dermatology Skin inspection: pink, warm, dry, and int act General General appearence: well groomed, well no urished Build: morbidly obese Head: normocephalic Eyes Conjunctiva: without injection
--- OUTSIDE RECORDS SUMMARY | 2024-06-13 04:26 | XMS_ITS | Encounter Summary ---
Author Organization [facility] Address [address] [place] [address] Care Team Providers Care Websphere Commerce Consultant Name Role Phone Sincere Hollingsworth MD Primary Care Provider Unavailable Encounter Details Date Type Department Care Team (Late st Contact Info) Description 10/22/2004 Outpatient Historical [facility] Neurology [address], [address] [place] [address] Arnoldo Pope MD [address] [place] [id number] COMMON MIGRAINE W/O MENTN INTRACT (Primary Dx) Social History Tobacco Use Types Packs/Day Years Used Date Smoking Tobacco: Never Assessed Comments Unknown Sex and Gender Information Value Date Recorded Sex Assigned at Not on file 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
--- OUTSIDE RECORDS SUMMARY | 2024-06-13 04:26 | XMS_ITS | Encounter Summary ---
Author Organization [facility] Address [address] [place] [address] Care Team Providers Care Meter Repairer Name Role Phone Sincere Hollingsworth MD Primary Care Provider Unavailable Encounter Details Date Type Department Care Team (Late st Contact Info) Description 12/21/2004 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
--- OUTSIDE RECORDS SUMMARY | 2024-06-13 04:26 | XMS_ITS | Encounter Summary ---
Author Organization [facility] Address [address] [place] [address] Care Team Providers Care Software Development Manager Name Role Phone Sincere Hollingsworth MD Primary Care Provider Unavailable Encounter Details Date Type Department Care Team (Latest Contact Info) Description 10/18/2004 Outpatient Historical [facility] Multidisciplinary Chronic Pain [address] [place] [address] Sincere Hollingsworth MD NO ADDRESS ON FILE HEADACHE (Primary Dx) Social History Tobacco Use Types Packs/Day Years Used Date Smoking Tobacco: Never Assessed Comments Unknown Sex and Gender Information Value Date Recorded Sex Assigned at Not on file 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
--- OUTSIDE RECORDS SUMMARY | 2024-06-13 04:26 | XMS_ITS | Encounter Summary ---
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
--- OUTSIDE RECORDS SUMMARY | 2024-06-13 04:26 | XMS_ITS | Encounter Summary ---
Author Organization [facility] Address [address] [place] [address] Care Team Providers Care Bench Assembler Electrical Name Role Phone Sincere Hollingsworth MD Primary Care Provider Unavailable Encounter Details Date Type Department Care Team (Late st Contact Info) Description 11/17/2004 Outpatient Historical [facility] [address] [place] [address] Social History Tobacco Use Types Packs/Day Years Used Date Smoking Tobacco: Never Assessed Comments Unknown Sex and Gender Information Value Date Recorded Sex Assigned at Not on file Legal Sex Female 5:20 AM DANCE CRITIC Gender Identity Not on file Sexual Orientation Not on file documented as of this encounter Plan of Treatment Not on file documented as of this encounter Visit Diagnoses Not on filedocumented in this encounter Care Teams Bench Assembler Electrical Relationship Specialty Start Date End Date Sincere Hollingsworth MD NO ADDRESS ON FILE PCP - General 10/18/04 documented as of this encounter
--- OUTSIDE RECORDS SUMMARY | 2024-06-13 04:26 | XMS_ITS | Encounter Summary ---
Author Organization [facility] Address [address] [place] [address] Care Team Providers Care Apprentice Jockey Name Role Phone Sincere Hollingsworth MD Primary Care Provider Unavailable Encounter Details Date Type Department Care Team (Late st Contact Info) Description 05/17/2005 Outpatient Historical [facility] [address] [place] [address] Social History Tobacco Use Types Packs/Day Years Used Date Smoking Tobacco: Never Assessed Comments Unknown Sex and Gender Information Value Date Recorded Sex Assigned at Not on file Legal Sex Female 5:20 AM LINING FELLER BLINDSTITCH Gender Identity Not on file Sexual Orientation Not on file documented as of this encounter Plan of Treatment Not on file documented as of this encounter Visit Diagnoses Not on filedocumented in this encounter Care Teams Apprentice Jockey Relationship Specialty Start Date End Date Sincere Hollingsworth MD NO ADDRESS ON FILE PCP - General 10/18/04 documented as of this encounter
--- OUTSIDE RECORDS SUMMARY | 2024-06-13 04:26 | XMS_ITS | Encounter Summary ---
Author Organization [facility] Address [address] [place] [address] Care Team Providers Care Production Supervisor Off Shift Name Role Phone Sincere Hollingsworth MD Primary Care Provider Unavailable Encounter Details Date Type Department Care Team (Late st Contact Info) Description 06/21/2005 Outpatient Historical [facility] [address] [place] [address] Social History Tobacco Use Types Packs/Day Years Used Date Smoking Tobacco: Never Assessed Comments Unknown Sex and Gender Information Value Date Recorded Sex Assigned at Not on file Legal Sex Female 5:20 AM RESERVOIR ENGINEER Gender Identity Not on file Sexual Orientation Not on file documented as of this encounter Plan of Treatment Not on file documented as of this encounter Visit Diagnoses Not on filedocumented in this encounter Care Teams Production Supervisor Off Shift Relationship Specialty Start Date End Date Sincere Hollingsworth MD NO ADDRESS ON FILE PCP - General 10/18/04 documented as of this encounter
--- OUTSIDE RECORDS SUMMARY | 2024-06-13 04:26 | XMS_ITS | Encounter Summary ---
Author Organization [facility] Address [address] [place] [address] Care Team Providers Care Publicity Person Name Role Phone Sincere Hollingsworth MD Primary Care Provider Unavailable Encounter Details Date Type Department Care Team (Late st Contact Info) Description 11/17/2004 Outpatient Historical [facility] [address] [place] [address] Social History Tobacco Use Types Packs/Day Years Used Date Smoking Tobacco: Never Assessed Comments Unknown Sex and Gender Information Value Date Recorded Sex Assigned at Not on file Legal Sex Female 5:20 AM CLINICAL EDUCATION ACADEMIC COORDINATOR Gender Identity Not on file Sexual Orientation Not on file documented as of this encounter Plan of Treatment Not on file documented as of this encounter Visit Diagnoses Not on filedocumented in this encounter Care Teams Publicity Person Relationship Specialty Start Date End Date Sincere Hollingsworth MD NO ADDRESS ON FILE PCP - General 10/18/04 documented as of this encounter
--- OUTSIDE RECORDS SUMMARY | 2024-06-13 04:26 | XMS_ITS | Encounter Summary ---
Author Organization [facility] Address [address] [place] [address] Care Team Providers Care Physical Ther Name Role Phone Sincere Hollingsworth MD Primary Care Provider Unavailable Encounter Details Date Type Department Care Team (Late st Contact Info) Description 06/07/2005 Outpatient Historical [facility] [address] [place] [address] Social History Tobacco Use Types Packs/Day Years Used Date Smoking Tobacco: Never Assessed Comments Unknown Sex and Gender Information Value Date Recorded Sex Assigned at Not on file Legal Sex Female 5:20 AM SOIL TECHNICIAN Gender Identity Not on file Sexual Orientation Not on file documented as of this encounter Plan of Treatment Not on file documented as of this encounter Visit Diagnoses Not on filedocumented in this encounter Care Teams Physical Ther Relationship Specialty Start Date End Date Sincere Hollingsworth MD NO ADDRESS ON FILE PCP - General 10/18/04 documented as of this encounter
--- OUTSIDE RECORDS SUMMARY | 2024-06-13 04:26 | XMS_ITS | Encounter Summary ---
Author Organization [facility] Address [address] [place] [address] Care Team Providers Care Automotive Service Management Teacher Name Role Phone Sincere Hollingsworth MD Primary Care Provider Unavailable Encounter Details Date Type Department Care Team (Latest Contact Info) Description 11/17/2004 Outpatient Historical [facility] Multidisciplinary Chronic Pain [address] [place] [address] Arnoldo Pope MD [address] [place] [address] PSYCHOGENIC PAIN NOS (Primary Dx) Social History Tobacco Use Types Packs/Day Years Used Date Smoking Tobacco: Never Assessed Comments Unknown Sex and Gender Information Value Date Recorded Sex Assigned at Not on file Legal Sex Female 5:20 AM C WINFORMS DEVELOPER Gender Identity Not on file Sexual Orientation Not on file documented as of this encounter Plan of Treatment Not on file documented as of this encounter Visit Diagnoses Diagnosis Psychogenic pain, site unspecified- Primary documented in this encounter Care Teams Automotive Service Management Teacher Relationship Specialty Start Date End Date Sincere Hollingsworth MD NO ADDRESS ON FILE PCP - General 10/18/04 documented as of this encounter
--- OUTSIDE RECORDS SUMMARY | 2024-06-13 04:26 | XMS_ITS | Encounter Summary ---
Author Organization [facility] Address [address] [place] [address] Care Team Providers Care School Superintendent Name Role Phone Sincere Hollingsworth MD Primary Care Provider Unavailable Encounter Details Date Type Department Care Team (Latest Contact Info) Description 12/18/2004 Outpatient Historical [facility] Multidisciplinary Chronic Pain [address] [place] [address] Arnoldo Pope MD [address] [place] [address] CLASS MIGRAIN W/O MENTN INTRACTABLE (Primary Dx) Social History Tobacco Use Types Packs/Day Years Used Date Smoking Tobacco: Never Assessed Comments Unknown Sex and Gender Information Value Date Recorded Sex Assigned at Not on file Legal Sex Female 5:20 AM CHRISTMAS TREE FARM WORKER Gender Identity Not on file Sexual Orientation Not on file documented as of this encounter Plan of Treatment Not on file documented as of this encounter Visit Diagnoses Diagnosis Migraine with aura, without mention of intractable migraine without mention of status migrainosus- Primary documented in this encounter Care Teams School Superintendent Relationship Specialty Start Date End Date Sincere Hollingsworth MD NO ADDRESS ON FILE PCP - General 10/18/04 documented as of this encounter
--- OUTSIDE RECORDS SUMMARY | 2024-06-13 04:26 | XMS_ITS | Encounter Summary ---
Author Organization [facility] Address [address] [place] [address] Care Team Providers Care Bead Maker Name Role Phone Sincere Hollingsworth MD Primary Care Provider Unavailable Encounter Details Date Type Department Care Team (Late st Contact Info) Description 05/10/2005 Outpatient Historical [facility] [address] [place] [address] Social History Tobacco Use Types Packs/Day Years Used Date Smoking Tobacco: Never Assessed Comments Unknown Sex and Gender Information Value Date Recorded Sex Assigned at Not on file Legal Sex Female 5:20 AM SUBSTANCE ABUSE COUNSELOR Gender Identity Not on file Sexual Orientation Not on file documented as of this encounter Plan of Treatment Not on file documented as of this encounter Visit Diagnoses Not on filedocumented in this encounter Care Teams Bead Maker Relationship Specialty Start Date End Date Sincere Hollingsworth MD NO ADDRESS ON FILE PCP - General 10/18/04 documented as of this encounter
--- OUTSIDE RECORDS SUMMARY | 2024-06-13 04:26 | XMS_ITS | Encounter Summary ---
Author Organization [facility] Address [address] [place] [address] Care Team Providers Care Free Lance Model Name Role Phone Sincere Hollingsworth MD Primary Care Provider Unavailable Encounter Details Date Type Department Care Team (Late st Contact Info) Description 12/23/2004 Outpatient Historical [facility] [address] [place] [address] Social History Tobacco Use Types Packs/Day Years Used Date Smoking Tobacco: Never Assessed Comments Unknown Sex and Gender Information Value Date Recorded Sex Assigned at Not on file Legal Sex Female 5:20 AM PATIENT PARTNER Gender Identity Not on file Sexual Orientation Not on file documented as of this encounter Plan of Treatment Not on file documented as of this encounter Visit Diagnoses Not on filedocumented in this encounter Care Teams Free Lance Model Relationship Specialty Start Date End Date Sincere Hollingsworth MD NO ADDRESS ON FILE PCP - General 10/18/04 documented as of this encounter
--- OUTSIDE RECORDS SUMMARY | 2024-06-13 04:26 | XMS_ITS | Encounter Summary ---
Author Organization [facility] Address [address] [place] [address] Care Team Providers Care Manager Process Name Role Phone Sincere Hollingsworth MD Primary Care Provider Unavailable Encounter Details Date Type Department Care Team (Latest Contact Info) Description 05/22/[address] [facility] Multidisciplinary Chronic Pain [address] [place] [address] Arnoldo Pope MD [address] [place] [address] COMMON MIGRAINE W/O MENTN INTRACT (Primary Dx) Social History Tobacco Use Types Packs/Day Years Used Date Smoking Tobacco: Never Assessed Comments Unknown Sex and Gender Information Value Date Recorded Sex Assigned at Not on file Legal Sex Female 5:20 AM STUDENT LIFE ADVISOR Gender Identity Not on file Sexual Orientation Not on file documented as of this encounter Plan of Treatment Not on file documented as of this encounter Visit Diagnoses Diagnosis Migraine without aura, without mention of intractable migraine without mention of status migrainosus- Primary documented in this encounter Care Teams Manager Process Relationship Specialty Start Date End Date Sincere Hollingsworth MD NO ADDRESS ON FILE PCP - General 10/18/04 documented as of this encounter
--- OUTSIDE RECORDS SUMMARY | 2024-06-13 04:26 | XMS_ITS | Encounter Summary ---
Author Organization [facility] Address [address] [place] [address] Care Team Providers Care Junior Software Engineer Name Role Phone Sincere Hollingsworth MD Primary Care Provider Unavailable Encounter Details Date Type Department Care Team (Late st Contact Info) Description 10/18/2004 Outpatient Historical [facility] [address] [place] [address] Social History Tobacco Use Types Packs/Day Years Used Date Smoking Tobacco: Never Assessed Comments Unknown Sex and Gender Information Value Date Recorded Sex Assigned at Not on file Legal Sex Female 5:20 AM BYPRODUCT ENGINEER Gender Identity Not on file Sexual Orientation Not on file documented as of this encounter Plan of Treatment Not on file documented as of this encounter Visit Diagnoses Not on filedocumented in this encounter Care Teams Junior Software Engineer Relationship Specialty Start Date End Date Sincere Hollingsworth MD NO ADDRESS ON FILE PCP - General 10/18/04 documented as of this encounter
--- OUTSIDE RECORDS SUMMARY | 2024-06-13 04:26 | XMS_ITS | Encounter Summary ---
Author Organization [facility] Address [address] [place] [address] Care Team Providers Care Deputy Juvenile Officer Name Role Phone Sincere Hollingsworth MD Primary Care Provider Unavailable Encounter Details Date Type Department Care Team (Late st Contact Info) Description 07/05/2005 Outpatient Historical [facility] [address] [place] [address] Social History Tobacco Use Types Packs/Day Years Used Date Smoking Tobacco: Never Assessed Comments Unknown Sex and Gender Information Value Date Recorded Sex Assigned at Not on file Legal Sex Female 5:20 AM RACE AND SPORTS BOOK WRITER Gender Identity Not on file Sexual Orientation Not on file documented as of this encounter Plan of Treatment Not on file documented as of this encounter Visit Diagnoses Not on filedocumented in this encounter Care Teams Deputy Juvenile Officer Relationship Specialty Start Date End Date Sincere Hollingsworth MD NO ADDRESS ON FILE PCP - General 10/18/04 documented as of this encounter
--- OUTSIDE RECORDS SUMMARY | 2024-06-13 04:26 | XMS_ITS | Encounter Summary ---
Author Organization [facility] Address [address] [place] [address] Care Team Providers Care Email Manager Name Role Phone Sincere Hollingsworth MD Primary Care Provider Unavailable Encounter Details Date Type Department Care Team (Late st Contact Info) Description 05/24/2005 Outpatient Historical [facility] [address] [place] [address] Social History Tobacco Use Types Packs/Day Years Used Date Smoking Tobacco: Never Assessed Comments Unknown Sex and Gender Information Value Date Recorded Sex Assigned at Not on file Legal Sex Female 5:20 AM TELEVISION ENGINEERING TEACHER Gender Identity Not on file Sexual Orientation Not on file documented as of this encounter Plan of Treatment Not on file documented as of this encounter Visit Diagnoses Not on filedocumented in this encounter Care Teams Email Manager Relationship Specialty Start Date End Date Sincere Hollingsworth MD NO ADDRESS ON FILE PCP - General 10/18/04 documented as of this encounter
--- OUTSIDE RECORDS SUMMARY | 2024-06-13 04:26 | XMS_ITS | Encounter Summary ---
Author Organization [facility] Address [address] [place] [address] Care Team Providers Care Malted Milk Masher Name Role Phone Sincere Hollingsworth MD Primary Care Provider Unavailable Encounter Details Date Type Department Care Team (Latest Contact Info) Description 11/17/2004 Outpatient Historical [facility] Multidisciplinary Chronic Pain [address] [place] [address] Sincere Hollingsworth MD NO ADDRESS ON FILE HEADACHE (Primary Dx) Social History Tobacco Use Types Packs/Day Years Used Date Smoking Tobacco: Never Assessed Comments Unknown Sex and Gender Information Value Date Recorded Sex Assigned at Not on file Legal Sex Female 5:20 AM PUMP ERECTOR Gender Identity Not on file Sexual Orientation Not on file documented as of this encounter Plan of Treatment Not on file documented as of this encounter Visit Diagnoses Diagnosis Headache(784.0)- Primary Headache documented in this encounter Care Teams Malted Milk Masher Relationship Specialty Start Date End Date Sincere Hollingsworth MD NO ADDRESS ON FILE PCP - General 10/18/04 documented as of this encounter
--- OUTSIDE RECORDS SUMMARY | 2024-06-13 04:26 | XMS_ITS | Encounter Summary ---
Author Organization [facility] Address [address] [place] [address] Care Team Providers Care Casting Coordinator Name Role Phone Sincere Hollingsworth MD Primary Care Provider Unavailable Encounter Details Date Type Department Care Team (Latest Contact Info) Description 12/26/2004 Outpatient Historical [facility] [address] [place] [address] AMBULANCE, [place] POISONING-MEDICINAL AGT NOS (Primary Dx) Social History Tobacco Use Types Packs/Day Years Used Date Smoking Tobacco: Never Assessed Comments Unknown Sex and Gender Information Value Date Recorded Sex Assigned at Not on file Legal Sex Female 5:20 AM MANAGEMENT PLANNER Gender Identity Not on file Sexual Orientation Not on file documented as of this encounter Plan of Treatment Not on file documented as of this encounter Visit Diagnoses Diagnosis Poisoning by unspecified drug or medicinal substance(977.9)- Primary Poisoning by unspecified drug or medicinal substance documented in this encounter Care Teams Casting Coordinator Relationship Specialty Start Date End Date Sincere Hollingsworth MD NO ADDRESS ON FILE PCP - General 10/18/04 documented as of this encounter
--- OUTSIDE RECORDS SUMMARY | 2024-06-13 04:26 | XMS_ITS | Encounter Summary ---
Author Organization [facility] Address [address] [place] [address] Care Team Providers Care Textiles Sales Representative Name Role Phone Sincere Hollingsworth MD Primary Care Provider Unavailable Encounter Details Date Type Department Care Team (Late st Contact Info) Description 10/18/2004 Outpatient Historical [facility] [address] [place] [address] Social History Tobacco Use Types Packs/Day Years Used Date Smoking Tobacco: Never Assessed Comments Unknown Sex and Gender Information Value Date Recorded Sex Assigned at Not on file Legal Sex Female 5:20 AM HAM FACER Gender Identity Not on file Sexual Orientation Not on file documented as of this encounter Plan of Treatment Not on file documented as of this encounter Visit Diagnoses Not on filedocumented in this encounter Care Teams Textiles Sales Representative Relationship Specialty Start Date End Date Sincere Hollingsworth MD NO ADDRESS ON FILE PCP - General 10/18/04 documented as of this encounter
--- OUTSIDE RECORDS SUMMARY | 2024-06-13 04:26 | XMS_ITS | Encounter Summary ---
Author Organization [facility] Address [address] [place] [address] Care Team Providers Care Mines Safety Engineer Name Role Phone Sincere Hollingsworth MD Primary Care Provider Unavailable Encounter Details Date Type Department Care Team (Late st Contact Info) Description 11/01/2004 Outpatient Historical [facility] [address] [place] [address] Social History Tobacco Use Types Packs/Day Years Used Date Smoking Tobacco: Never Assessed Comments Unknown Sex and Gender Information Value Date Recorded Sex Assigned at Not on file Legal Sex Female 5:20 AM URBAN GARDENING SPECIALIST Gender Identity Not on file Sexual Orientation Not on file documented as of this encounter Plan of Treatment Not on file documented as of this encounter Visit Diagnoses Not on filedocumented in this encounter Care Teams Mines Safety Engineer Relationship Specialty Start Date End Date Sincere Hollingsworth MD NO ADDRESS ON FILE PCP - General 10/18/04 documented as of this encounter
--- OUTSIDE RECORDS SUMMARY | 2024-06-13 04:26 | XMS_ITS | Encounter Summary ---
Author Organization [facility] Address [address] [place] [address] Care Team Providers Care Restaurant District Manager Name Role Phone Sincere Hollingsworth MD Primary Care Provider Unavailable Encounter Details Date Type Department Care Team (Late st Contact Info) Description 11/22/2004 Outpatient Historical [facility] [address] [place] [address] Social History Tobacco Use Types Packs/Day Years Used Date Smoking Tobacco: Never Assessed Comments Unknown Sex and Gender Information Value Date Recorded Sex Assigned at Not on file Legal Sex Female 5:20 AM MILL PLATFORM SUPERVISOR Gender Identity Not on file Sexual Orientation Not on file documented as of this encounter Plan of Treatment Not on file documented as of this encounter Visit Diagnoses Not on filedocumented in this encounter Care Teams Restaurant District Manager Relationship Specialty Start Date End Date Sincere Hollingsworth MD NO ADDRESS ON FILE PCP - General 10/18/04 documented as of this encounter
--- OUTSIDE RECORDS SUMMARY | 2024-06-13 04:26 | XMS_ITS | Encounter Summary ---
Author Organization [facility] Address [address] [place] [address] Care Team Providers Care Cyber Workforce Developer And Manager Name Role Phone Sincere Hollingsworth MD Primary Care Provider Unavailable Encounter Details Date Type Department Care Team (Latest Contact Info) Description 06/22/2005 Outpatient Historical [facility] Multidisciplinary Chronic Pain [address] [place] [address] Arnoldo Pope MD [address] [place] [address] Other Pain Disorders Related to Psychological Factors (Primary Dx) Social History Tobacco Use Types Packs/Day Years Used Date Smoking Tobacco: Never Assessed Comments Unknown Sex and Gender Information Value Date Recorded Sex Assigned at Not on file Legal Sex Female 5:20 AM SACK CLEANING HAND Gender Identity Not on file Sexual Orientation Not on file documented as of this encounter Plan of Treatment Not on file documented as of this encounter Visit Diagnoses Diagnosis Other pain disorders related to psychological factors- Primary documented in this encounter Care Teams Cyber Workforce Developer And Manager Relationship Specialty Start Date End Date Sincere Hollingsworth MD NO ADDRESS ON FILE PCP - General 10/18/04 documented as of this encounter
--- OUTSIDE RECORDS SUMMARY | 2024-06-13 04:26 | XMS_ITS | Encounter Summary ---
Author Organization [facility] Address [address] [place] [address] Care Team Providers Care Group Billing Coordinator Name Role Phone Sincere Hollingsworth MD Primary Care Provider Unavailable Encounter Details Date Type Department Care Team (Late st Contact Info) Description 11/01/2004 Outpatient Historical [facility] [address] [place] [address] Social History Tobacco Use Types Packs/Day Years Used Date Smoking Tobacco: Never Assessed Comments Unknown Sex and Gender Information Value Date Recorded Sex Assigned at Not on file Legal Sex Female 5:20 AM HOT STONE SETTER Gender Identity Not on file Sexual Orientation Not on file documented as of this encounter Plan of Treatment Not on file documented as of this encounter Visit Diagnoses Not on filedocumented in this encounter Care Teams Group Billing Coordinator Relationship Specialty Start Date End Date Sincere Hollingsworth MD NO ADDRESS ON FILE PCP - General 10/18/04 documented as of this encounter
--- OUTSIDE RECORDS SUMMARY | 2024-06-13 04:26 | XMS_ITS | Encounter Summary ---
Author Organization [facility] Address [address] [place] [address] Care Team Providers Care Building Custodial Supervisor Name Role Phone Sincere Hollingsworth MD Primary Care Provider Unavailable Encounter Details Date Type Department Care Team (Latest Contact Info) Description 11/01/2004 Outpatient Historical [facility] Multidisciplinary Chronic Pain [address] [place] [address] Sincere Hollingsworth MD NO ADDRESS ON FILE HEADACHE (Primary Dx) Social History Tobacco Use Types Packs/Day Years Used Date Smoking Tobacco: Never Assessed Comments Unknown Sex and Gender Information Value Date Recorded Sex Assigned at Not on file Legal Sex Female 5:20 AM COLORIST FORMULATOR Gender Identity Not on file Sexual Orientation Not on file documented as of this encounter Plan of Treatment Not on file documented as of this encounter Visit Diagnoses Diagnosis Headache(784.0)- Primary Headache documented in this encounter Care Teams Building Custodial Supervisor Relationship Specialty Start Date End Date Sincere Hollingsworth MD NO ADDRESS ON FILE PCP - General 10/18/04 documented as of this encounter
--- OUTSIDE RECORDS SUMMARY | 2024-06-13 04:26 | XMS_ITS | Encounter Summary ---
Author Organization [facility] Address [address] [place] [address] Care Team Providers Care Cabinet Installer Name Role Phone Sincere Hollingsworth MD Primary Care Provider Unavailable Encounter Details Date Type Department Care Team (Late st Contact Info) Description 06/28/2005 Outpatient Historical [facility] [address] [place] [address] Social History Tobacco Use Types Packs/Day Years Used Date Smoking Tobacco: Never Assessed Comments Unknown Sex and Gender Information Value Date Recorded Sex Assigned at Not on file Legal Sex Female 5:20 AM EMBEDDED CASE MANAGER Gender Identity Not on file Sexual Orientation Not on file documented as of this encounter Plan of Treatment Not on file documented as of this encounter Visit Diagnoses Not on filedocumented in this encounter Care Teams Cabinet Installer Relationship Specialty Start Date End Date Sincere Hollingsworth MD NO ADDRESS ON FILE PCP - General 10/18/04 documented as of this encounter
--- OUTSIDE RECORDS SUMMARY | 2024-06-13 04:26 | XMS_ITS | Encounter Summary ---
Author Organization [facility] Address [address] [place] [address] Care Team Providers Care Customer Success Director Name Role Phone Sincere Hollingsworth MD Primary Care Provider Unavailable Encounter Details Date Type Department Care Team (Late st Contact Info) Description 12/20/2004 Outpatient Historical [facility] [address] [place] [address] Social History Tobacco Use Types Packs/Day Years Used Date Smoking Tobacco: Never Assessed Comments Unknown Sex and Gender Information Value Date Recorded Sex Assigned at Not on file Legal Sex Female 5:20 AM FOAM FABRICATOR Gender Identity Not on file Sexual Orientation Not on file documented as of this encounter Plan of Treatment Not on file documented as of this encounter Visit Diagnoses Not on filedocumented in this encounter Care Teams Customer Success Director Relationship Specialty Start Date End Date Sincere Hollingsworth MD NO ADDRESS ON FILE PCP - General 10/18/04 documented as of this encounter
--- OUTSIDE RECORDS SUMMARY | 2024-06-13 04:27 | XMS_ITS | Encounter Summary ---
Author Organization [facility] Address [address] [place] [address] Care Team Providers Care Forensic Dna Analyst Name Role Phone Sincere Hollingsworth MD Primary Care Provider Unavailable Encounter Details Date Type Department Care Team (Late st Contact Info) Description 01/25/2005 Outpatient Historical [facility] [address] [place] [address] Social History Tobacco Use Types Packs/Day Years Used Date Smoking Tobacco: Never Assessed Comments Unknown Sex and Gender Information Value Date Recorded Sex Assigned at Not on file Legal Sex Female 5:20 AM SCRAP CUTTER Gender Identity Not on file Sexual Orientation Not on file documented as of this encounter Plan of Treatment Not on file documented as of this encounter Visit Diagnoses Not on filedocumented in this encounter Care Teams Forensic Dna Analyst Relationship Specialty Start Date End Date Sincere Hollingsworth MD NO ADDRESS ON FILE PCP - General 10/18/04 documented as of this encounter
--- OUTSIDE RECORDS SUMMARY | 2024-06-13 04:27 | XMS_ITS | Encounter Summary ---
Author Organization [facility] Address [address] [place] [address] Care Team Providers Care Electron Microscopist Name Role Phone Sincere Hollingsworth MD Primary Care Provider Unavailable Encounter Details Date Type Department Care Team (Late st Contact Info) Description 02/01/2005 Outpatient Historical [facility] [address] [place] [address] Social History Tobacco Use Types Packs/Day Years Used Date Smoking Tobacco: Never Assessed Comments Unknown Sex and Gender Information Value Date Recorded Sex Assigned at Not on file Legal Sex Female 5:20 AM CRYPTOGRAPHIC CENTER SPECIALIST Gender Identity Not on file Sexual Orientation Not on file documented as of this encounter Plan of Treatment Not on file documented as of this encounter Visit Diagnoses Not on filedocumented in this encounter Care Teams Electron Microscopist Relationship Specialty Start Date End Date Sincere Hollingsworth MD NO ADDRESS ON FILE PCP - General 10/18/04 documented as of this encounter
--- OUTSIDE RECORDS SUMMARY | 2024-06-13 04:27 | XMS_ITS | Encounter Summary ---
Author Organization [facility] Address [address] [place] [address] Care Team Providers Care Consular Officer Name Role Phone Sincere Hollingsworth MD Primary Care Provider Unavailable Encounter Details Date Type Department Care Team (Late st Contact Info) Description 02/15/2005 Outpatient Historical [facility] [address] [place] [address] Social History Tobacco Use Types Packs/Day Years Used Date Smoking Tobacco: Never Assessed Comments Unknown Sex and Gender Information Value Date Recorded Sex Assigned at Not on file Legal Sex Female 5:20 AM PRODUCT SUPPORT ANALYST Gender Identity Not on file Sexual Orientation Not on file documented as of this encounter Plan of Treatment Not on file documented as of this encounter Visit Diagnoses Not on filedocumented in this encounter Care Teams Consular Officer Relationship Specialty Start Date End Date Sincere Hollingsworth MD NO ADDRESS ON FILE PCP - General 10/18/04 documented as of this encounter
--- OUTSIDE RECORDS SUMMARY | 2024-06-13 04:27 | XMS_ITS | Encounter Summary ---
Author Organization [facility] Address [address] [place] [address] Care Team Providers Care Improvement Manager Name Role Phone Sincere Hollingsworth MD Primary Care Provider Unavailable Encounter Details Date Type Department Care Team (Late st Contact Info) Description 01/18/2005 Outpatient Historical [facility] [address] [place] [address] Social History Tobacco Use Types Packs/Day Years Used Date Smoking Tobacco: Never Assessed Comments Unknown Sex and Gender Information Value Date Recorded Sex Assigned at Not on file Legal Sex Female 5:20 AM BUSINESS OBJECTS CONSULTANT Gender Identity Not on file Sexual Orientation Not on file documented as of this encounter Plan of Treatment Not on file documented as of this encounter Visit Diagnoses Not on filedocumented in this encounter Care Teams Improvement Manager Relationship Specialty Start Date End Date Sincere Hollingsworth MD NO ADDRESS ON FILE PCP - General 10/18/04 documented as of this encounter
--- OUTSIDE RECORDS SUMMARY | 2024-06-13 04:27 | XMS_ITS | Encounter Summary ---
Author Organization [facility] Address [address] [place] [address] Care Team Providers Care Knowledge Engineer Name Role Phone Sincere Hollingsworth MD Primary Care Provider Unavailable Encounter Details Date Type Department Care Team (Latest Contact Info) Description 01/18/2005 Outpatient Historical [facility] Multidisciplinary Chronic Pain [address] 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
--- OUTSIDE RECORDS SUMMARY | 2024-06-13 04:27 | XMS_ITS | Encounter Summary ---
Author Organization [facility] Address [address] [place] [address] Care Team Providers Care Diversity Intern Name Role Phone Sincere Hollingsworth MD Primary Care Provider Unavailable Encounter Details Date Type Department Care Team (Late st Contact Info) Description 03/22/2005 Outpatient Historical [facility] [address] [place] [address] Social History Tobacco Use Types Packs/Day Years Used Date Smoking Tobacco: Never Assessed Comments Unknown Sex and Gender Information Value Date Recorded Sex Assigned at Not on file Legal Sex Female 5:20 AM CENTER MEDICAL SPECIALIST Gender Identity Not on file Sexual Orientation Not on file documented as of this encounter Plan of Treatment Not on file documented as of this encounter Visit Diagnoses Not on filedocumented in this encounter Care Teams Diversity Intern Relationship Specialty Start Date End Date Sincere Hollingsworth MD NO ADDRESS ON FILE PCP - General 10/18/04 documented as of this encounter
--- OUTSIDE RECORDS SUMMARY | 2024-06-13 04:27 | XMS_ITS | Clinical Summary ---
Author Organization [facility] Address [address] [facility] [address] [place] [address] Phone Care Team Providers Care Top Knitter Name Role Phone Sincere Hollingsworth MD Primary Care Provider Unavailable Social History Tobacco Use Types Packs/Day Years Used Date Smoking Tobacco: Never Assessed Comments Unknown Sex and Gender Information Value Date Recorded Sex Assigned at Not on file Legal Sex Female 5:20 AM MED SPECIALIST Gender Identity Not on file Sexual Orientation Not on file Plan of Treatment Health Maintenance Due Date Last Done Comments DTAP/TDAP/TD VACCINES (1 - Tdap) 07/30/1982 CERVICAL CANCER SCREENING 07/30/1993 BREAST CANCER SCREENING 2003 COLORECTAL SCREENING 07/30/2008 Colorectal Cancer Screening 07/30/2008 FIT-DNA Q 3 years 07/30/2008 FIT/FOBT Q 1 year 07/30/2008 Flex Sig/CT Colonography Q 5 years 07/30/2008 ZOSTER VACCINE (1 of 2) 07/30/2013 INFLUENZA VACCINE (#1) 2023 RSV VACCINE (60+ or ) (1 - 1-dose 75+ series) 07/30/2038 HEPATITIS B VACCINES Aged Out No long er eligible based on patient's age to complete this topic PNEUMOCOCCAL VACCINE 0-49 YEARS Aged Out No longer eligible based on patient's age to complete this topic Insurance MEDICAID [place] Care Teams Top Knitter Relationship Specialty Start Date End Date Sincere Hollingsworth MD NO ADDRESS ON FILE PCP - General 10/18/04
--- OUTSIDE RECORDS SUMMARY | 2024-06-13 04:27 | XMS_ITS | Encounter Summary ---
Author Organization [facility] Address [address] [place] [address] Care Team Providers Care Security Police Officer Name Role Phone Sincere Hollingsworth MD Primary Care Provider Unavailable Encounter Details Date Type Department Care Team (Late st Contact Info) Description 12/30/2004 Outpatient Historical [facility] [address] [place] [address] Social History Tobacco Use Types Packs/Day Years Used Date Smoking Tobacco: Never Assessed Comments Unknown Sex and Gender Information Value Date Recorded Sex Assigned at Not on file Legal Sex Female 5:20 AM PREPLEATER Gender Identity Not on file Sexual Orientation Not on file documented as of this encounter Plan of Treatment Not on file documented as of this encounter Visit Diagnoses Not on filedocumented in this encounter Care Teams Security Police Officer Relationship Specialty Start Date End Date Sincere Hollinsgworth MD NO ADDRESS ON FILE PCP - General 10/18/04 documented as of this encounter
--- OUTSIDE RECORDS SUMMARY | 2024-06-13 04:27 | XMS_ITS | Encounter Summary ---
Author Organization [facility] Address [address] [place] [address] Care Team Providers Care Wind Up Worker Name Role Phone Sincere Hollingsworth MD Primary Care Provider Unavailable Encounter Details Date Type Department Care Team (Late st Contact Info) Description 12/15/2004 Outpatient Historical [facility] [address] [place] [address] Social History Tobacco Use Types Packs/Day Years Used Date Smoking Tobacco: Never Assessed Comments Unknown Sex and Gender Information Value Date Recorded Sex Assigned at Not on file Legal Sex Female 5:20 AM YARN DRY ROOM WORKER Gender Identity Not on file Sexual Orientation Not on file documented as of this encounter Plan of Treatment Not on file documented as of this encounter Visit Diagnoses Not on filedocumented in this encounter Care Teams Wind Up Worker Relationship Specialty Start Date End Date Sincere Hollingsworth MD NO ADDRESS ON FILE PCP - General 10/18/04 documented as of this encounter
--- OUTSIDE RECORDS SUMMARY | 2024-06-13 04:27 | XMS_ITS | Encounter Summary ---
Author Organization [facility] Address [address] [place] [address] Care Team Providers Care Parking Lot Signaler Name Role Phone Sincere Hollingsworth MD Primary Care Provider Unavailable Encounter Details Date Type Department Care Team (Late st Contact Info) Description 04/12/2005 Outpatient Historical [facility] [address] [place] [address] Social History Tobacco Use Types Packs/Day Years Used Date Smoking Tobacco: Never Assessed Comments Unknown Sex and Gender Information Value Date Recorded Sex Assigned at Not on file Legal Sex Female 5:20 AM FAC ENGINEER Gender Identity Not on file Sexual Orientation Not on file documented as of this encounter Plan of Treatment Not on file documented as of this encounter Visit Diagnoses Not on filedocumented in this encounter Care Teams Parking Lot Signaler Relationship Specialty Start Date End Date Sincere Hollingsworth MD NO ADDRESS ON FILE PCP - General 10/18/04 documented as of this encounter
--- OUTSIDE RECORDS SUMMARY | 2024-06-13 04:27 | XMS_ITS | Encounter Summary ---
Author Organization [facility] Address [address] [place] [address] Care Team Providers Care Optical Manager Name Role Phone Sincere Hollingsworth MD Primary Care Provider Unavailable Encounter Details Date Type Department Care Team (Latest Contact Info) Description 02/18/2005 Outpatient Historical [facility] Multidisciplinary Chronic Pain [address] 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
--- OUTSIDE RECORDS SUMMARY | 2024-06-13 04:27 | XMS_ITS | Encounter Summary ---
Author Organization [facility] Address [address] [place] [address] Care Team Providers Care Informatics Nurse Name Role Phone Sincere Hollingsworth MD Primary Care Provider Unavailable Encounter Details Date Type Department Care Team (Late st Contact Info) Description 04/26/2005 Outpatient Historical [facility] [address] [place] [address] Social History Tobacco Use Types Packs/Day Years Used Date Smoking Tobacco: Never Assessed Comments Unknown Sex and Gender Information Value Date Recorded Sex Assigned at Not on file Legal Sex Female 5:20 AM ASPHALT SCREED OPERATOR Gender Identity Not on file Sexual Orientation Not on file documented as of this encounter Plan of Treatment Not on file documented as of this encounter Visit Diagnoses Not on filedocumented in this encounter Care Teams Informatics Nurse Relationship Specialty Start Date End Date Sincere Hollingsworth MD NO ADDRESS ON FILE PCP - General 10/18/04 documented as of this encounter
--- OUTSIDE RECORDS SUMMARY | 2024-06-13 04:27 | XMS_ITS | Encounter Summary ---
Author Organization [facility] Address [address] [place] [address] Care Team Providers Care Accreditation Manager Name Role Phone Sincere Hlolingsworth MD Primary Care Provider Unavailable Encounter Details Date Type Department Care Team (Late st Contact Info) Description 07/23/2005 Outpatient Historical [facility] Multidisciplinary Chronic Pain [address] [place] [address] Arnoldo Pope MD [address] [place] [phone] Social History Tobacco Use Types Packs/Day Years Used Date Smoking Tobacco: Never Assessed Comments Unknown Sex and Gender Information Value Date Recorded Sex Assigned at Not on file Legal Sex Female 5:20 AM LAYER OUT PLATE GLASS Gender Identity Not on file Sexual Orientation Not on file documented as of this encounter Plan of Treatment Not on file documented as of this encounter Visit Diagnoses Not on filedocumented in this encounter Care Teams Accreditation Manager Relationship Specialty Start Date End Date Sincere Hollingsworth MD NO ADDRESS ON FILE PCP - General 10/18/04 documented as of this encounter
--- OUTSIDE RECORDS SUMMARY | 2024-06-13 04:27 | XMS_ITS | Encounter Summary ---
Author Organization [facility] Address [address] [place] [address] Care Team Providers Care Ethyl Blender Name Role Phone Sincere Hollingsworth MD Primary Care Provider Unavailable Encounter Details Date Type Department Care Team (Late st Contact Info) Description 03/15/[address] [facility] [address] [place] [address] Social History Tobacco Use Types Packs/Day Years Used Date Smoking Tobacco: Never Assessed Comments Unknown Sex and Gender Information Value Date Recorded Sex Assigned at Not on file Legal Sex Female 5:20 AM SUSTAINMENT LOGISTICS ANALYST Gender Identity Not on file Sexual Orientation Not on file documented as of this encounter Plan of Treatment Not on file documented as of this encounter Visit Diagnoses Not on filedocumented in this encounter Care Teams Ethyl Blender Relationship Specialty Start Date End Date Sincere Hollingsworth MD NO ADDRESS ON FILE PCP - General 10/18/04 documented as of this encounter
--- OUTSIDE RECORDS SUMMARY | 2024-06-13 04:27 | XMS_ITS | Encounter Summary ---
Author Organization [facility] Address [address] [place] [address] Care Team Providers Care Edi Analyst Name Role Phone Sincere Hollingsworth MD Primary Care Provider Unavailable Encounter Details Date Type Department Care Team (Late st Contact Info) Description 04/05/2005 Outpatient Historical [facility] [address] [place] [address] Social History Tobacco Use Types Packs/Day Years Used Date Smoking Tobacco: Never Assessed Comments Unknown Sex and Gender Information Value Date Recorded Sex Assigned at Not on file Legal Sex Female 5:20 AM DISABILITY HEARING OFFICER Gender Identity Not on file Sexual Orientation Not on file documented as of this encounter Plan of Treatment Not on file documented as of this encounter Visit Diagnoses Not on filedocumented in this encounter Care Teams Edi Analyst Relationship Specialty Start Date End Date Sincere Hollingsworth MD NO ADDRESS ON FILE PCP - General 10/18/04 documented as of this encounter
--- OUTSIDE RECORDS SUMMARY | 2024-06-13 04:27 | XMS_ITS | Encounter Summary ---
Author Organization [facility] Address [address] [place] [address] Care Team Providers Care Dumper Mold Cleaner Name Role Phone Sincere Hollingsworth MD Primary Care Provider Unavailable Encounter Details Date Type Department Care Team (Late st Contact Info) Description 04/17/2013 Ancillary Orders [facility] Admitting [address] [place] [address] Jad Castle, LAURIE Yañez [address] [place] [address] Fall (Primary Dx) Social History Tobacco Use Types Packs/Day Years Used Date Smoking Tobacco: Never Assessed Comments Unknown Sex and Gender Information Value Date Recorded Sex Assigned at Not on file Legal Sex Female 5:20 AM ASSEMBLER DIELECTRIC HEATER Gender Identity Not on file Sexual Orientation Not on file documented as of this encounter Plan of Treatment Not on file documented as of this encounter Results * XR LUMBAR SPINE 2 OR 3 VW (04/17/2013 10:13 AM ASSEMBLER DIELECTRIC HEATER) Anatomical Region Laterality Modality Spine Computed Radiogr aphy 04/17/2013 9:57 AM ASSEMBLER DIELECTRIC HEATER Narrative 04/17/2013 11:01 AM ASSEMBLER DIELECTRIC HEATER PROCEDURE XR LUMBAR SPINE, three views 17 April 2013 DESCRIPTION AP and lateral lumbar spine views and collimated lateral L5-S1 projection show no acute fracture or spondylolisthesis. ??Vertebral body and disc space heights are maintained. ??No significant degenerative change is appreciated at this time. ?? IMPRESSION normal lumbar spine series Procedure Note Fredi Vizcarra MD - 04/17/2013 PROCEDURE XR LUMBAR SPINE, three views 17 April 2013 DESCRIPTION AP and lateral lumbar spine views and collimated lateral L5-S1 projection show no acute fracture or spondylolisthesis. Vertebral body and disc space heights are maintained. No significant degenerative change is appreciated at this time. IMPRESSION normal lumbar spine series Arnoldo Street Sr., WATER SYSTEM OPERATOR DIAGNOSTIC IMAGIN G ORDERABLES Final Result * XR HIP 2+ VW RIGHT (04/17/2013 10:13 AM ASSEMBLER DIELECTRIC HEATER) Anatomical Region Laterality Modality Lower Extremity Right Computed Radiogr aphy 04/17/2013 10:0 4 AM ASSEMBLER DIELECTRIC HEATER Narrative 04/17/2013 10:59 AM ASSEMBLER DIELECTRIC HEATER PROCEDURE XR RIGHT HIP, two views 17 April 2013 DESCRIPTION AP and Cleave's views of the right hip show no acute fracture, dislocation, or deformity. ??No deformity of the femoral head is seen and the femoral neck appears intact. ??Multiple calcified phleboliths are noted in the pelvis IMPRESSION essentially normal right hip views Procedure Note Fredi Vizcarra MD - 04/17/2013 PROCEDURE XR RIGHT HIP, two views 17 April 2013 DESCRIPTION AP and Cleave's views of the right hip show no acute fracture, dislocation, or deformity. No deformity of the femoral head is seen and the femoral neck appears intact. Multiple calcified phleboliths are noted in the pelvis IMPRESSION essentially normal right hip views Arnoldo Street Sr., WATER SYSTEM OPERATOR DIAGNOSTIC IMAGIN G ORDERABLES Final Result documented in this encounter Visit Diagnoses Diagnosis Fall- Primary Unspecified fall Fall Unspecified fall Fall Unspecified fall documented in this encounter Care Teams Dumper Mold Cleaner Relationship Specialty Start Date End Date Sincere Hollingsworth MD NO ADDRESS ON FILE PCP - General 10/18/04 documented as of this encounter
--- OUTSIDE RECORDS SUMMARY | 2024-06-13 04:27 | XMS_ITS | Encounter Summary ---
Author Organization [facility] Address [address] [place] [address] Care Team Providers Care Kitchen Cleaner Name Role Phone Sincere Hollingsworth MD Primary Care Provider Unavailable Encounter Details Date Type Department Care Team (Late st Contact Info) Description 01/03/2005 Outpatient [facility] [address] [place] [address] Social History Tobacco Use Types Packs/Day Years Used Date Smoking Tobacco: Never Assessed Comments Unknown Sex and Gender Information Value Date Recorded Sex Assigned at Not on file Legal Sex Female 5:20 AM MEDICAL TECHNOLOGIST CLINICAL Gender Identity Not on file Sexual Orientation Not on file documented as of this encounter Plan of Treatment Not on file documented as of this encounter Visit Diagnoses Not on filedocumented in this encounter Care Teams Kitchen Cleaner Relationship Specialty Start Date End Date Sincere Hollingsworth MD NO ADDRESS ON FILE PCP - General 10/18/04 documented as of this encounter
--- OUTSIDE RECORDS SUMMARY | 2024-06-13 04:27 | XMS_ITS | Encounter Summary ---
Author Organization [employer] [facility] Address [address] [place] [address] Care Team Providers Care Mash Filter Cloth Changer Name Role Phone Sincere Hollingsworth MD Primary Care Provider Unavailable Encounter Details Date Type Department Care Team (Late st Contact Info) Description 11/03/2017 Ancillary Orders [facility] [place] [address] [place] [address] Sweta Reyna, HERBICIDE SPRAYER [address] [place] [id number] Acute bronchitis due to other specified organisms Social History Tobacco Use Types Packs/Day Years Used Date Smoking Tobacco: Never Assessed Comments Unknown Sex and Gender Information Value Date Recorded Sex Assigned at Not on file Legal 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 Exam: XR CHEST PA AND LATERAL 2 VW Date/Time of Exam: 11/03/2017 10:25 AM Reason For Exam: Acute bronchitis. Findings: The cardiomediastinal silhouette is normal. No acute focal airspace disease, pleural effusion, or pneumothorax. No acute osseous abnormality. Narrative Procedure Note Juan Jung DO - 11/03/2017 IMPRESSION: See below. Exam: XR CHEST PA AND LATERAL 2 VW Date/Time of Exam: 11/03/2017 10:25 AM Reason For Exam: Acute bronchitis. Findings: The cardiomediastinal silhouette is normal. No acute focal airspace disease, pleural effusion, or pneumothorax. No acute osseous abnormality. Sweta Reyna HERBICIDE SPRAYER DIAGNOSTIC IMAGING ORDERABLES F inal Result documented in this encounter Visit Diagnoses Diagnosis Acute bronchitis due to other specified organisms Acute bronchitis due to other specified organisms documented in this encounter Care Teams Mash Filter Cloth Changer Relationship Specialty Start Date End Date Sincere Hollingsworth MD NO ADDRESS ON FILE PCP - General 10/18/04 documented as of this encounter
--- OUTSIDE RECORDS SUMMARY | 2024-06-13 04:27 | XMS_ITS ---
Author Organization [facility] [employer] Address [address] [place], [place] [id number] Care Team Providers Care [employer] Home Makeup Artist Name Role Phone Jacob HINKLE, Jackie Primary Care Provider Mak Blanchard MD, Nehemiah Unavailable [phone] Allergies Allergen (clinical drug ingredient) Drug/Non Drug Allergy documented on EMR Reaction Allergy Type Onset Date Status zolpidem Ambien Unknown Drug Allergy Active Results Component Value Reference Range Notes Urine tox screen / MS if ind icated Reviewed date:02/21/2024 03:22:53 PM Interpretation:Consistent Performing Lab: Notes/Report: Consistent REASON FOR VISIT Patient states she is here today for low back pain. Medications Medication SIG (Take, Route, Frequency, Duration) Notes Start Date End Date Status desvenlafaxine 100 mg 1 tab orally once a day Active atorvastatin 80 mg 1 tab(s) orally once a day for 30 day(s) Active Atarax 50 1 tab orally at bedtime Active Aspirin EC 81 mg 1 tab(s) orally once a day for 30 day(s) Active ARIPiprazole 20 mg 1 tab orally once a day Active zaleplon 10 mg 1 cap orally once a day (at bedtime), as needed for insomnia Active Vitamin B12 500 mcg 1 tab orally once a day Active acetaminophen-hydrocodo ne 325 mg-10 mg 1-2 tabs orally Q4-6H prn pain (max 5/day; hold within 4H of planned sleep) for 28 days Do not fill prior to 03/22/24. ICD-10: G89.29 02/21/2024 Active albuterol 0.63 mg/3 mL (0.021%) 3 mL by nebulizer 3 times a day for 30 day(s) Active acetaminophen-hydrocodo ne 325 mg-10 mg 1-2 tabs orally Q4-6H prn pain (max 5/day; hold within 4H of planned sleep) for 28 days Do not fill prior to 02/23/24. ICD-10: G89.29 02/21/2024 Active Ventolin HFA 90 mcg/inh 2 puffs inhaled every 6 hours Active Trulicity Pen 0.75 mg/0.5 mL as directed subcutaneously once a week Active trihexyphenidyl 2 mg 1 tab orally 3 time s a day Active QUEtiapine 200 mg 1 tab orally at bedtime Active propranolol 10 mg 1 tab orally 3 times a day for tremors Active Plavix 75 mg 1 tab(s) orally once a day for 30 day(s) Active nitroglycerin 0.4 mg 1 tab(s) sublingual ly every 5 minutes Active Narcan 4 mg/0.1 mL as directed intranasally once 08/06/2020 Active Mucinex 600 mg 1 tab orally every 1 2 hours Active Metoprolol Succinate ER 25 mg 1 tab(s) orally once a day for 30 day(s) 04/11/2023 Active losartan 25 mg 1 tab(s) orally once a day for 30 day(s) 04/11/2023 Active hydrOXYzine hydrochloride 25 mg 1 tab(s) orally 3 times a day Active gabapentin 800 mg 1 tab po orally TID Active eszopiclone 2 mg 1 tab(s) orally once a day (at bedtime) Active dicyclomine 10 mg 1 cap orally 2 times a day Active diclofenac topical 1% as directed applie d topically 4 times a day 12/27/2023 Active Social History Tobacco Use: Social History Observation Description Date Details (start date - stop date) Former Smoker NA - 06/08/2020 alcohol Question Answer Notes Did you have a drink containing alcohol in the p ast year? No Points 0 Interpretation Negative Tobacco use: Question Answer Notes : former smoker When did you stop smoking? 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 02/21/2024 Other chronic pain (ICD-10 - G89.29) Patient reports that taking her pain medication allows her to prepare for upcoming surgery and stay at a rehab facility. Plan to continue oral opioid medication management. 02/21/2024 Hypersomnia, unspecified (ICD-10 - G47.10) Plan to continue to restrict opioid use in relation to sleep for safety concerns. 02/21/2024 [facility] (current) use of opiate analgesic (ICD-10 - Z79.891) 2022 opioid (OUD) risk tool score = 4. This places the patient in the high risk category, waranting more frequent screening. Plan 2 month visit pending continued compliance with patient's Treatment Agreement. Plan urine toxicology screen today to monitor for presence of any unprescribed or illicit controlled substance(s), as well as prescribed hydrocodone. 02/21/2024 Other Patient reports that she is scheduled for LSP surgery with Dr. Cantu on 03/06/24. The service was provided by LAURIE Medina, [...] 4H of planned sleep) for 28 days 02/21/2024 Do not fill prior to 03/22/24. ICD-10: G89.29 acetaminophen-hydrocodon e 325 mg-10 mg 1-2 tabs orally Q4-6H prn pain (max 5/day; hold within 4H of planned sleep) for 28 days 02/21/2024 Do not fill prior to 02/23/24. ICD-10: G89.29 Treatment Notes Assessment Notes Vertebrogenic low back pain Chronic axia l lumbosacral spine pain. Other chronic pain Patient reports that taking her pain medication allows her to prepare for upcoming surgery and stay at a rehab facility. Plan to continue oral opioid medication management. Hypersomnia, unspecified Plan to continu e to restrict opioid use in relation to sleep for safety concerns. 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 This places the patient in the high risk category, waranting more frequent screening. Plan 2 month visit pending continued compliance with patient's Treatment Agreement. Plan urine toxicology screen today to monitor for presence of any unprescribed or illicit controlled substance(s), as well as prescribed hydrocodone. Other Patient reports that she is scheduled for LSP surgery with Dr. Cantu on 03/06/24. The service was provided by LAURIE Medina, as part of the ongoing care plan established by Nehemiah Blanchard MD, who was present in the office for direct supervision during the encounter. Next Appt Details Follow Up: 2 month Rx visit. , Reason: Provider Name:Nehemiah Lund son, 08/06/2024 03:20:00 PM, [address] [place] [address], [phone], Progress Notes * Natalee NULL GDOB:1965 (58 yo F)Acc No.[id number]:02/21/2024 Patient:?Natalee NULL Provider:?Nehemiah Blanchard :1965???Age:58 Y???Sex:Female D ate:02/21/2024 Address:[address] [place], [place] [id number] Pcp:Jackie James MD Subjective: * Chief Complaints: * ???Patient states she is her e today for low back pain. * HPI: ???Lumbar Spine:?58 year old female presents with c/o pain?for?chronic duration?in the bilateral lower back. This pain is described as constant aching. This pain extends into the hips and BLE. The back pain is aggravated by bending over, all walking, and arising from a seated position. This pain is somewhat alleviated with use of heat, with rest, and by lying down.?c/o tingling/numbness?in the RLE.?Denies : weakness.?Denies : injury:.?previous surgery:?L4-5 laminectomy and partial facetectomy, performed at [facility] by Dr. Jayseh Cantu 07/09/21.?Previous Imaging/Studies:?Sleep study?on 04/26/17.?X-rays?of the L-spine [...] with history of benefit; injection therapy?(performed in [place], [place]) with history of?no benefit.?Medication history:?Cochran 5/325; Robaxin 500 mg BID; Ultram 50 mg.?Medications:?Cochran (hydrocodone / acetaminophen)?325 mg-10 mg, 1-2 tabs, orally, Q4-6H prn pain (max 5/day; hold within 4H of planned sleep), 28 days, 140, Refills 0.Notes: Prescriptions given (2) on 12/27/23. Patient reports good benefit, as evidenced by improved ability to walk, with quantity 17 and 0 prescription(s) remaining.Last fill date: 01/26/24.Last dose taken: 02/21/24.?Plavix (clopidogrel) and aspirin?are managed by Dr. Kraft; will address / send request for anticoagulation cessation recommendations as the need arises.?Non Compliance/Failure to Follow Treatment Agreement:?Failure to take medication as prescribed:?06/15/17 (short #21 Cochran).? * ROS:?14 point review of systems negative. * Medical History:? * Surgical History:?Appendecto my Abdominal hysterectomy and bilateral salpingo-oophorectomy Nephrectomy, right, (cancer) performed at [facility] in [place], [place] by Dr. Concepcion, 03/15/21L4-5 laminectomy and partial facetectomy, performed at [facility] by Dr. Jayesh Cantu, 07/09/21Placement of stents, carotid artery, performed at [facility], 12/08/22 * Hospitalization/Major Diagno stic Procedure:?Disorientation and hallucinations, 2014Possible stroke or reaction to medication, treated at [facility], 04/2018 * Family History:?Father: dece ased 54 yrs, heart attack.?Mother: 79 yrs, old age.? * Social History:?Tobacco use?:?former smoker ?When did you stop smoking??06/08/2020 ???Marijuana: remotely (last occurrence reportedly was in 1988). ???Meth: no. ???Other illicit drug use: no. ???Alcohol?Did you have a drink containing alcohol in the past year??No ?Points?0 ?Interpretation?Negative ???: no, . ???Children: 1. ???Education: highest grade completed = 12th. ???Occupation: no, reportedly disabled. ???Exercise: 3-5 days per week. ???History of welding/metal work: no. ???Travel: no. * Medications:?Takingacetamino phen-hydrocodone 325 mg-10 mg tablet 1-2 tabs orally Q4-6H prn pain (max 5/day; hold within 4H of planned sleep) albuterol 0.63 mg/3 mL (0.021%) solution 3 mL by nebulizer 3 times a day ARIPiprazole 20 mg tablet 1 tab orally once a day Aspirin EC(aspirin) 81 mg delayed release tablet 1 tab(s) orally once a day Atarax(hydrOXYzine) 50 mg 1 tab orally at bedtime atorvastatin 80 mg tablet 1 tab(s) orally once a day desvenlafaxine 100 mg tablet, extended release 1 tab orally once a day diclofenac topical 1% gel as directed applied topically 4 times a day dicyclomine 10 mg capsule 1 cap orally 2 times a day eszopiclone 2 mg tablet 1 tab(s) orally once a day (at bedtime) gabapentin 800 mg tablet 1 tab po orally TID hydrOXYzine hydrochloride 25 mg tablet 1 tab(s) orally 3 times a day losartan 25 mg tablet 1 tab(s) orally once a day Metoprolol Succinate ER(metoprolol) 25 mg tablet, extended release 1 tab(s) orally once a day Mucinex(guaiFENesin) 600 mg tablet, extended release 1 tab orally every 12 hours Narcan(naloxone) 4 mg/0.1 mL spray as directed intranasally once nitroglycerin 0.4 mg tablet 1 tab(s) sublingually every 5 minutes Plavix(clopidogrel) 75 mg tablet 1 tab(s) orally once a day propranolol 10 mg tablet 1 tab orally 3 times a day for tremors QUEtiapine 200 mg tablet 1 tab orally at bedtime trihexyphenidyl 2 mg tablet 1 tab orally 3 times a day Trulicity Pen(dulaglutide) 0.75 mg/0.5 mL solution as directed subcutaneously once a week Ventolin HFA(albuterol) 90 mcg/inh aerosol 2 puffs inhaled every 6 hours Vitamin B12(cyanocobalamin) 500 mcg tablet 1 tab orally once a day zaleplon 10 mg capsule 1 cap orally once a day (at bedtime), as needed for insomnia Medication List reviewed and reconciled with the patientTaking acetaminophen-hydrocodone 325 mg-10 mg tablet 1-2 tabs orally Q4-6H prn pain (max 5/day; hold within 4H of planned sleep) Taking albuterol 0.63 mg/3 mL (0.021%) solution 3 mL by nebulizer 3 times a day Taking ARIPiprazole 20 mg tablet 1 tab orally once a day Taking Aspirin EC(aspirin) 81 mg delayed release tablet 1 tab(s) orally once a day Taking Atarax(hydrOXYzine) 50 mg 1 tab orally at bedtime Taking atorvastatin 80 mg tablet 1 tab(s) orally once a day Taking desvenlafaxine 100 mg tablet, extended release 1 tab orally once a day Taking diclofenac topical 1% gel as directed applied topically 4 times a day Taking dicyclomine 10 mg capsule 1 cap orally 2 times a day Taking eszopiclone 2 mg tablet 1 tab(s) orally once a day (at bedtime) Taking gabapentin 800 mg tablet 1 tab po orally TID Taking hydrOXYzine hydrochloride 25 mg tablet 1 tab(s) orally 3 times a day Taking losartan 25 mg tablet 1 tab(s) orally once a day Taking Metoprolol Succinate ER(metoprolol) 25 mg tablet, extended release 1 tab(s) orally once a day Taking Mucinex(guaiFENesin) 600 mg tablet, extended release 1 tab orally every 12 hours Taking Narcan(naloxone) 4 mg/0.1 mL spray as directed intranasally once Taking nitroglycerin 0.4 mg tablet 1 tab(s) sublingually every 5 minutes Taking Plavix(clopidogrel) 75 mg tablet 1 tab(s) orally once a day Taking propranolol 10 mg tablet 1 tab orally 3 times a day for tremors Taking QUEtiapine 200 mg tablet 1 tab orally at bedtime Taking trihexyphenidyl 2 mg tablet 1 tab orally 3 times a day Taking Trulicity Pen(dulaglutide) 0.75 mg/0.5 mL solution as directed subcutaneously once a week Taking Ventolin HFA(albuterol) 90 mcg/inh aerosol 2 puffs inhaled every 6 hours Taking Vitamin B12(cyanocobalamin) 500 mcg tablet 1 tab orally once a day Taking zaleplon 10 mg capsule 1 cap orally once a day (at bedtime), as needed for insomnia Medication List reviewed and reconciled with the patient * Allergies:?Ambien Objective: * Vitals:?Pain Scale: 7 (0-10) , Pain average: 8, Pain Range: 6-10, Ht:65in, Wt:242.4lbs, BMI:40.33index, BP:145/87mm Hg, HR:84, RR:16, Temp:97.8, SaO2: 98. * Physical Examination:?General:?General appearence:?well groomed, well nourished.?Build:?morbidly obese.?Head:?normocephalic.?Eyes:?Conjunctiva:?without injection.?ENT:?Tongue:?piercing noted.?Hearing:?grossly intact.?Chest:?Shape and expansion:?normal expansion, equal bilaterally, respirations even and unlabored.?Neurological:?Psychiatric:?alert and conversant; flat affect.?Musculoskeletal:?Gait:?broad-based; bilateral AFOs in place.?Outcome Assessment:?Findings:?Negative, care plan not required ???Dermatology:?Skin inspection:?pink, warm, dry, and intact.? Therapeutic Interventions: * Therapeutic Interventions: ???1.?Drug Screening ? Urine Sample : collected (consistent) ? Assessment: * Assessment: 1.?Vertebrogenic low back pa in - M54.51 (Primary)???2.?Other chronic pain - G89.29???3.?Hypersomnia, unspecified - G47.10???4.?[facility] (current) use of opiate analgesic - Z79.891??? Plan: * Treatment: 2.?Other chronic pain? Notes: Patient reports that taking her pain medication allows her to prepare for upcoming surgery and stay at a rehab facility. Plan to continue oral opioid medication management.?? 3.?Hypersomnia, unspecified? Notes: Plan to continue to restrict opioid use in relation to sleep for safety concerns.?? 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 This places the patient in the high risk category, waranting more frequent screening. Plan 2 month visit pending continued compliance with patient's Treatment Agreement. Plan urine toxicology screen today to monitor for presence of any unprescribed or illicit controlled substance(s), as well as prescribed hydrocodone.?? 5.?Others? Continue acetaminophen-hydrocodone tablet, 325 mg-10 mg, 1-2 tabs, orally, Q4-6H prn pain (max 5/day; hold within 4H of planned sleep), 28 days, 140, Refills 0, Notes to Pharmacist: Do not fill prior to 02/23/24. ICD-10: G89.29;?Continue acetaminophen-hydrocodone tablet, 325 mg-10 mg, 1-2 tabs, orally, Q4-6H prn pain (max 5/day; hold within 4H of planned sleep), 28 days, 140, Refills 0, Notes to Pharmacist: Do not fill prior to 03/22/24. ICD-10: G89.29.?? Notes: Patient reports that she is scheduled for LSP surgery with Dr. Cantu on 03/06/24. The service was provided by LAURIE Medina, as part of the ongoing care plan established by Nehemiah Blanchard MD, who was present in the office for direct supervision during the encounter.?? Prescription Drug Monitoring Program (PDMP) PDMP report request complete d on 02/20/2024 06:10:28 PM - Nehemiah Blanchard * Procedure Codes:?29816 Urine Dip Cup, Modifiers: QW * Preventive Medicine:? ??Counseling:?Pain Management:?Follow-up Plan documented:?Yes ?Pain Screening:?7 ?BP Management?LIFESTYLE RECOMMENDATION:?Lifestyle education regarding hypertension - patient education sheet given on 02/21/2024 * Follow Up:?2 month Rx visit. * Images: * HOOKER Sign off status: Completed true * Provider:?Nehemiah Blanchard Date:?02/21/20 24 Generated for Rafal brown/Jevon/Regino on:?06/13/2024 04:26 AM REEL HOOKER History and Physical Notes * HPI (History of Present Illness) Category Sub-Category Detail Notes Category Not es Lumbar Spine injury: tingling/numbness in the RLE pain in the bilateral low er back. This pain is described as constant aching. This pain extends into the hips and BLE. The back pain is aggravated by bending over, all walking, and arising from a seated position. This pain is somewhat alleviated with use of heat, with rest, and by lying down previous surgery: L4-5 laminectomy and partial facetectomy, performed at [facility] by Dr. Jayesh Cantu 07/09/21 weakness Medications Cochran (hydrocodone / acetaminoph en) 325 mg-10 mg, 1-2 tabs, orally, Q4-6H prn pain (max 5/day; hold within 4H of planned sleep), 28 days, 140, Refills 0. Notes: Prescriptions given (2) on 12/27/23. Patient reports good benefit, as evidenced by improved ability to walk, with quantity 17 and 0 prescription(s) remaining. Last fill date: 01/26/24. Last dose taken: 02/21/24 Plavix (clopidogrel) and aspirin are man aged [...] history of benefit; injection therapy (performed in [place], [place]) with history of no benefit Medication history: Cochran 5/325; Robaxin 500 mg BID; Ultram 50 mg Previous Imaging/Studies MRI of the L-spine o n 10/07/20 and 03/28/17 Sleep study on 04/26/17 X-rays of the L-spine on , 03/28/17 and 03/09/05 Non Compliance/Failure to Fo llow Treatment Agreement Failure to take medication as prescribed: 06/15/17 (short #21 Cochran) Physical Examination Category Sub-Category Detail Notes Section [...]
--- OUTSIDE RECORDS SUMMARY | 2024-06-13 04:27 | XMS_ITS | Encounter Summary ---
Author Organization [facility] Address [address] [place] [address] Care Team Providers Care Riveter Pneumatic Name Role Phone Sincere Hollingsworth MD Primary Care Provider Unavailable Encounter Details Date Type Department Care Team (Late st Contact Info) Description 04/19/2005 Outpatient Historical [facility] [address] [place] [address] Social History Tobacco Use Types Packs/Day Years Used Date Smoking Tobacco: Never Assessed Comments Unknown Sex and Gender Information Value Date Recorded Sex Assigned at Not on file 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
--- OUTSIDE RECORDS SUMMARY | 2024-06-13 04:27 | XMS_ITS | Encounter Summary ---
Author Organization [facility] Address [address] [place] [address] Care Team Providers Care Founder & Ceo Name Role Phone Sincere Hollingsworth MD Primary Care Provider Unavailable Encounter Details Date Type Department Care Team (Late st Contact Info) Description 03/29/2005 [facility] [address] [place] [address] Social History Tobacco Use Types Packs/Day Years Used Date Smoking Tobacco: Never Assessed Comments Unknown Sex and Gender Information Value Date Recorded Sex Assigned at Not on file 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
--- OUTSIDE RECORDS SUMMARY | 2024-06-13 04:27 | XMS_ITS | Encounter Summary ---
Author Organization [facility] Address [address] [place] [address] Care Team Providers Care Survey Questionnaire Designer Name Role Phone Sincere Hollingsworth MD Primary Care Provider Unavailable Encounter Details Date Type Department Care Team (Late st Contact Info) Description 05/03/2005 Outpatient Historical [facility] [address] [place] [address] Social History Tobacco Use Types Packs/Day Years Used Date Smoking Tobacco: Never Assessed Comments Unknown Sex and Gender Information Value Date Recorded Sex Assigned at Not on file 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
--- OUTSIDE RECORDS SUMMARY | 2024-06-13 04:27 | XMS_ITS | Encounter Summary ---
Author Organization [employer] Address [address] [facility] Attn: [place] [address] Care Team Providers Care Industrial Health And Safety Professor Name Role Phone Sincere Hollingsworth MD Primary Care Provider Unavailable Encounter Details Date Type Department Care Team (Late st Contact Info) Description 08/11/2001 Outpatient Historical Non-Staff, Physician NO ADDRESS ON FILE Social History Tobacco Use Types Packs/Day Years Used Date Smoking Tobacco: Never Assessed Comments Unknown Sex and Gender Information Value Date Recorded Sex Assigned at Not on file Legal Sex Female 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
--- OUTSIDE RECORDS SUMMARY | 2024-06-13 04:27 | XMS_ITS ---
Author Organization [facility] Address [address] [place], [place] [address] Care Team Providers Care Carburetor Repairer Name Role Phone Jacob HINKLE, Jackie Primary Care Provider Mak Blanchard MD, Nehemiah Unavailable [phone] Allergies Allergen (clinical drug ingredient) Drug/Non Drug Allergy documented on EMR Reaction Allergy Type Onset Date Status zolpidem Ambien Unknown Drug Allergy Active REASON FOR VISIT Patient states she is here today for low back pain. Medications Medication SIG (Take, Route, Frequency, Duration) Notes Start Date End Date Status gabapentin 800 mg 1 tab po orally TID Active hydrOXYzine hydrochloride 25 mg 1 tab(s) orally 3 times a day Active dicyclomine 10 mg 1 cap orally 2 times a day Active eszopiclone 2 mg 1 tab(s) orally once a day (at bedtime) Active diclofenac topical 1% as directed applie d topically 4 times a day 12/27/2023 Active Aspirin EC 81 mg 1 tab(s) orally once a day for 30 day(s) Active Atarax 50 1 tab orally at bedtime Active atorvastatin 80 mg 1 tab(s) orally once a day for 30 day(s) Active desvenlafaxine 100 mg 1 tab orally once a day Active ARIPiprazole 20 mg 1 tab orally once a day Active acetaminophen-hydrocodo ne 325 mg-10 mg 1-2 tabs orally Q4-6H prn pain (max 5/day; hold within 4H of planned sleep) for 28 days Do not fill prior to 05/20/24. ICD-10: G89.29 04/17/2024 Active albuterol 0.63 mg/3 mL (0.021%) 3 mL by nebulizer 3 times a day for 30 day(s) Active Vitamin B12 500 mcg 1 tab orally once a day Active zaleplon 10 mg 1 cap orally once a day (at bedtime), as needed for insomnia Active acetaminophen-hydrocodo ne 325 mg-10 mg 1-2 tabs orally Q4-6H prn pain (max 5/day; hold within 4H of planned sleep) for 28 days Do not fill prior to 04/22/24. ICD-10: G89.29 04/17/2024 Active Trulicity Pen 0.75 mg/0.5 mL as directed subcutaneously once a week Active Ventolin HFA 90 mcg/inh 2 puffs inhaled every 6 hours Active propranolol 10 mg 1 tab orally 3 times a day for tremors Active QUEtiapine 200 mg 1 tab orally at bedtime Active trihexyphenidyl 2 mg 1 tab orally 3 time s a day Active Mucinex 600 mg 1 tab orally every 1 2 hours Active Narcan 4 mg/0.1 mL as directed intranasally once 08/06/2020 Active nitroglycerin 0.4 mg 1 tab(s) sublingual ly every 5 minutes Active Plavix 75 mg 1 tab(s) orally once a day for 30 day(s) Active Metoprolol Succinate ER 25 mg 1 tab(s) orally once a day for 30 day(s) 04/11/2023 Active losartan 25 mg 1 tab(s) orally once a day for 30 day(s) 04/11/2023 Active Social History Tobacco Use: Social History Observation Description Date Details (start date - stop date) Former Smoker NA - 06/08/2020 Tobacco use: Question Answer Notes : former smoker When did you stop smoking? 06/08/2020 AUDIT-C (Standard) Question Answer Notes Did you have a drink containing alcohol in the p ast year? No Points 0 Interpretation Negative Vital Signs Temperature 97.7 degrees Fahrenheit 04/17/19 25 Blood pressure systolic 151 mm Hg 04/17/19 25 Blood pressure diastolic 91 mm Hg 025 Height 65 in 04/17/2024 Weight 247 lbs 04/17/2024 Oximetry 97 % 04/17/2024 BMI 41.1 kg/m2 04/17/2024 Encounters Encounter Location Date Provider Diagnosis [facility] [address] [place] [phone] 04/17/2024 Nehemiah Blanchard Vertebrogenic low ba ck pain M54.51 ; Other chronic pain G89.29 and Hypersomnia, unspecified G47.10 Assessments Encounter Date Diagnosis (ICD Code) Assessment Notes Treatment Notes Treatment Clinical Notes Section Notes 04/17/2024 Vertebrogenic low back pain (ICD-10 - M54.51) Chronic axial lumbosacral spine pain. 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 Plan to continue oral opioid medication management. 04/17/2024 Hypersomnia, unspecified (ICD-10 - G47.10) Plan to continue to restrict opioid use in relation to sleep for safety concerns. 04/17/2024 Other Patient reports that her LSP surgery with Dr. Cantu will be rescheduled for May or June. The service was provided by LAURIE Medina, [...] 4H of planned sleep) for 28 days 04/17/2024 Do not fill prior to 05/20/24. ICD-10: G89.29 acetaminophen-hydrocodon e 325 mg-10 mg 1-2 tabs orally Q4-6H prn pain (max 5/day; hold within 4H of planned sleep) for 28 days 04/17/2024 Do not fill prior to 04/22/24. ICD-10: G89.29 Treatment Notes Assessment Notes Vertebrogenic low back pain Chronic axia l lumbosacral spine pain. Other chronic pain Patient reports that taking her pain medication allows her to complete light regulatory intern. Plan to continue oral opioid medication management. Hypersomnia, unspecified Plan to continu e to restrict opioid use in relation to sleep for safety concerns. Other Patient reports that her LSP surgery with Dr. Cantu will be rescheduled for May or June. The service was provided by LAURIE Medina, as part of the ongoing care plan established by Nehemiah Blanchard MD, who was present in the office for direct supervision during the encounter. Next Appt Details Follow Up: 2 month Rx visit. , Reason: Provider Name:Nehemiah Lund son, 08/06/2024 03:20:00 PM, [address] [facility], [place], [place], [phone], Progress Notes * Natalee NULL GDOB:1965 (58 yo F)Acc No.[id number]:04/17/2024 Patient:?Natalee NULL Provider:?Nehemiah Blanchard :1965???Age:58 Y???Sex:Female D ate:04/17/2024 Address:[address] [place] [address] Pcp:Jackie James MD Subjective: * Chief Complaints: [...] a seated position, and standing to do dishes. This pain is somewhat alleviated with use of a heating pad and by lying down.?c/o tingling/numbness?in the RLE.?Denies : weakness.?Denies : injury:.?previous surgery:?L4-5 laminectomy and partial facetectomy, performed at [facility] by Dr. Jayesh Cantu 07/09/21.?Previous Imaging/Studies:?Sleep study?on [...] with history of benefit; injection therapy?(performed in [place], [place]) with history of?no benefit.?Medication history:?[place] 5/325; Robaxin 500 mg BID; Ultram 50 mg.?Medications:?[place] (hydrocodone / acetaminophen)?325 mg-10 mg, 1-2 tabs, orally, Q4-6H prn pain (max 5/day; hold within 4H of planned sleep), 28 days, 140, Refills 0.Notes: Prescriptions given (2) on 02/21/24. Patient reports good benefit, as evidenced by improved ability to wash dishes and clear ice off of vehicle, with quantity 28 and 0 prescription(s) remaining.Last fill date: 03/25/24.?Plavix (clopidogrel) and aspirin?are managed by Dr. Kraft; will address / send request for anticoagulation cessation recommendations as the need arises.?Non Compliance/Failure to Follow Treatment Agreement:?Failure to take medication as prescribed:?06/15/17 (short #21 [place]).? * ROS:?14 point review of systems negative. * Medical History:? * Surgical History:?Appendecto my Abdominal hysterectomy and bilateral salpingo-oophorectomy Nephrectomy, right, (cancer) performed at [facility] in [place], [place] by Dr. Concepcion, 03/15/21L4-5 laminectomy and partial facetectomy, performed at [facility] by Dr. Jayesh Cantu, 07/09/21Placement of stents, carotid artery, performed at [facility], 12/08/22 * Hospitalization/Major Diagno stic Procedure:?Disorientation and hallucinations, 2014Possible stroke or reaction to medication, treated at [facility], 04/2018 * Family History:?Father: dece ased 54 yrs, heart attack.?Mother: 79 yrs, old age.? * Social History:?Tobacco use?:?former smoker ?When did you stop smoking??06/08/2020 ???Marijuana: remotely (last occurrence reportedly was in 1988). ???Meth: no. ???Other illicit drug use: no. ???: no, . ???Children: 1. ???Education: highest grade completed = 12th. ???Occupation: no, reportedly disabled. ???Exercise: 3-5 days per week. ???History of welding/metal work: no. ???Travel: no. ???AUDIT-C (Standard)?Did you have a drink containing alcohol in the past year??No ?Points?0 ?Interpretation?Negative * Medications:?Takingacetamino phen-hydrocodone 325 mg-10 mg tablet [...] reviewed and reconciled with the patient * Allergies:?Ambienno[Allergie s Verified] Objective: * Vitals:?Pain Scale: 8.5 (0-1 0), Pain average: 7-8, Pain Range: 6-9, Ht:65in, Wt:247lbs, BMI:41.1index, BP:151/91mm Hg, HR:86, RR:16, Temp:97.7, SaO2: 97. * Physical Examination:?General:?General appearence:?well groomed, well nourished.?Build:?morbidly obese.?Head:?normocephalic.?Eyes:?Conjunctiva:?without injection.?ENT:?Tongue:?piercing noted.?Hearing:?grossly intact.?Chest:?Shape and expansion:?normal expansion, equal bilaterally, respirations even and unlabored.?Neurological:?Psychiatric:?alert and conversant; flat affect.?Musculoskeletal:?Gait:?broad-based; bilateral AFOs in place.?Outcome Assessment:?Findings:?Negative, care plan not required ???Dermatology:?Skin inspection:?pink, warm, dry, and intact.? Therapeutic Interventions: Assessment: * Assessment: 1.?Vertebrogenic low back pa in - M54.51 (Primary)???2.?Other chronic pain - G89.29???3.?Hypersomnia, unspecified - G47.10??? Plan: * Treatment: 2.?Other chronic pain? Notes: Patient reports that taking her pain medication allows her to complete light regulatory intern. Plan to continue oral opioid medication management.?? 3.?Hypersomnia, unspecified? Notes: Plan to continue to restrict opioid use in relation to sleep for safety concerns.?? 4.?Others? Continue acetaminophen-hydrocodone tablet, 325 mg-10 mg, 1-2 tabs, orally, Q4-6H prn pain (max 5/day; hold within 4H of planned sleep), 28 days, 140, Refills 0, Notes to Pharmacist: Do not fill prior to 04/22/24. ICD-10: G89.29;?Continue acetaminophen-hydrocodone tablet, 325 mg-10 mg, 1-2 tabs, orally, Q4-6H prn pain (max 5/day; hold within 4H of planned sleep), 28 days, 140, Refills 0, Notes to Pharmacist: Do not fill prior to 05/20/24. ICD-10: G89.29.?? Notes: Patient reports that her LSP surgery with Dr. Cantu will be rescheduled for May or June. The service was provided by LAURIE Medina, as part of the ongoing care plan established by Nehemiah Blanchard MD, who was present in the office for direct supervision during the encounter.?? Prescription Drug Monitoring Program (PDMP) PDMP report request complete d on 04/16/2024 07:10:05 PM - Nehemiah Blanchard * Procedure Codes:? * Preventive Medicine:? ??Counseling:?Pain Management:?Follow-up Plan documented:?Yes ?Pain Screening:?8.5 ?BP Management?LIFESTYLE RECOMMENDATION:?Lifestyle education regarding hypertension - patient education sheet given on 04/17/2024 * Follow Up:?2 month Rx visit. * Images: * SHEEP FARMER Sign off status: Completed true * Provider:?Nehemiah Blanchard Date:?04/17/19 25 Generated for Rafal brown/Jevon/Kensmkye on:?06/13/2024 04:27 AM STUD SHEEP FARMER History and Physical Notes * HPI (History of Present Illness) Category Sub-Category Detail Notes Category Not es Lumbar Spine injury: tingling/numbness in the RLE pain in the bilateral low er back. This pain is described as constant aching. This pain extends into the hips and thighs. The back pain is aggravated by cold weather, arising from a seated position, and standing to do dishes. This pain is somewhat alleviated with use of a heating pad and by lying down previous surgery: L4-5 laminectomy and partial facetectomy, performed at [facility] by Dr. Jayesh Cantu 07/09/21 weakness Medications [place] (hydrocodone / acetaminoph en) 325 mg-10 mg, 1-2 tabs, orally, Q4-6H prn pain (max 5/day; hold within 4H of planned sleep), 28 days, 140, Refills 0. Notes: Prescriptions given (2) on 02/21/24. Patient reports good benefit, as evidenced by improved ability to wash dishes and clear ice off of vehicle, with quantity 28 and 0 prescription(s) remaining. Last fill date: 03/25/24 Plavix (clopidogrel) and aspirin are man aged [...] history of benefit; injection therapy (performed in [place], [place]) with history of no benefit Medication history: [place] 5/325; Robaxin 500 mg BID; Ultram 50 mg Previous Imaging/Studies MRI of the L-spine o n 10/07/20 and 03/28/17 Sleep study on 04/26/17 X-rays of the L-spine on , 03/28/17 and 03/09/05 Non Compliance/Failure to Fo llow Treatment Agreement Failure to take medication as prescribed: 06/15/17 (short #21 [place]) Physical Examination Category Sub-Category Detail Notes Section [...]
--- OUTSIDE RECORDS SUMMARY | 2024-06-13 04:27 | XMS_ITS | Encounter Summary ---
Author Organization [facility] Address [address] [place] [address] Care Team Providers Care Traveling Nurse Name Role Phone Sincere Hollingsworth MD Primary Care Provider Unavailable Encounter Details Date Type Department Care Team (Late st Contact Info) Description 02/24/2005 [facility] [address] [place] [address] Social History Tobacco Use Types Packs/Day Years Used Date Smoking Tobacco: Never Assessed Comments Unknown Sex and Gender Information Value Date Recorded Sex Assigned at Not on file Legal Sex Female 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
--- OUTSIDE RECORDS SUMMARY | 2024-06-13 04:27 | XMS_ITS | Encounter Summary ---
Author Organization [facility] Address [address] [place] [address] Care Team Providers Care Cook School Cafeteria Name Role Phone Sincere Hollingsworth MD Primary Care Provider Unavailable Encounter Details Date Type Department Care Team (Late st Contact Info) Description 07/19/2005 Outpatient [facility] [address] [place] [address] Social History Tobacco Use Types Packs/Day Years Used Date Smoking Tobacco: Never Assessed Comments Unknown Sex and Gender Information Value Date Recorded Sex Assigned at Not on file Legal Sex Female 5:20 AM SEASONER HAND Gender Identity Not on file Sexual Orientation Not on file documented as of this encounter Plan of Treatment Not on file documented as of this encounter Visit Diagnoses Not on filedocumented in this encounter Care Teams [employer] Cafeteria Relationship Specialty Start Date End Date Sincere Hollingsworth MD NO ADDRESS ON FILE PCP - General 10/18/04 documented as of this encounter
--- OUTSIDE RECORDS SUMMARY | 2024-06-13 04:27 | XMS_ITS | Encounter Summary ---
Author Organization [facility] Address [address] [place] [address] Care Team Providers Care Rainbow Trout Farm Manager Name Role Phone Sincere Hollingsworth MD Primary Care Provider Unavailable Encounter Details Date Type Department Care Team (Latest Contact Info) Description 04/21/2005 Outpatient Historical [facility] Multidisciplinary Chronic Pain [address] [place] [address] Arnoldo Pope MD [address] [place] [address] PSYCHOGENIC PAIN NEC (Primary Dx) Social History Tobacco Use Types Packs/Day Years Used Date Smoking Tobacco: Never Assessed Comments Unknown Sex and Gender Information Value Date Recorded Sex Assigned at Not on file Legal Sex Female 5:20 AM MEASUREMENT SPECIALIST Gender Identity Not on file Sexual Orientation Not on file documented as of this encounter Plan of Treatment Not on file documented as of this encounter Visit Diagnoses Diagnosis Other pain disorders related to psychological factors- Primary documented in this encounter Care Teams Rainbow Trout Farm Manager Relationship Specialty Start Date End Date Sincere Hollingsworth MD NO ADDRESS ON FILE PCP - General 10/18/04 documented as of this encounter
--- OUTSIDE RECORDS SUMMARY | 2024-06-13 04:27 | XMS_ITS | Encounter Summary ---
Author Organization [facility] Address [address] [place] [address] Care Team Providers Care Model Photographers' Name Role Phone Sincere Hollingsworth MD Primary Care Provider Unavailable Encounter Details Date Type Department Care Team (Late st Contact Info) Description 10/18/2004 Outpatient Historical [facility] Arnoldo Pope MD [address] [place] [phone] TENSION HEADACHE (Primary Dx) Social History Tobacco Use Types Packs/Day Years Used Date Smoking Tobacco: Never Assessed Comments Unknown Sex and Gender Information Value Date Recorded Sex Assigned at Not on file Legal Sex Female 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 AM END STAPLER Gender Identity Not on file Sexual Orientation Not on file documented as of this encounter Plan of Treatment Not on file documented as of this encounter Procedures Procedure Name Priority Date/Time Associated Diagnosis Comments CBC WITH DIFFERENTIAL Routine 10/18/2004 5:09 PM CDT COMPREHENSIVE METABOLIC PANEL Routine 10/18/2004 5:09 PM CDT documented in this encounter Results * (ABNORMAL) COMPREHENSIVE METABOLIC PANEL (10/18/2004 5:09 PM CDT) GLUCOSE 108 70 - 110 mg/dL INTERFACE SYSTEM BUN 24(H) 7 - 17 mg/dL INTERFACE SYSTEM CREATININE 0.8 0.7 - 1.2 mg/dL INTERFACE SYSTEM SODIUM 144 136 - 145 mEq/L INTERFACE SYSTEM POTASSIUM 4.0 3.5 - 5.0 mEq/L INTERFACE SYSTEM CO2 24 22 - 32 mmol/l INTERFACE SYSTEM CHLORIDE 107 95 - 110 mEq/L INTERFACE SYSTEM CALCIUM 9.4 8.4 - 10.5 mg/dL INTERFACE SYSTEM ALKALINE PHOSPHATASE 49 38 - 126 IU/L INTERFACE SYSTEM TOTAL PROTEIN 8.2 6.3 - 8.2 g/dL INTERFACE SYSTEM ALBUMIN 3.9 3.5 - 5.0 g/dL INTERFACE SYSTEM AST 31 14 - 36 IU/L INTERFACE SYSTEM ALT 29 9 - 52 IU/L INTERFACE SYSTEM BILIRUBIN TOTAL 0.5 0.2 - 1.4 mg/dL INTERFACE SYSTEM GLOBULIN (CALC) 4.3(H) 2.4 - 3.9 g/dL INTERFACE SYSTEM ANION GAP 17 9 - 20 mEq/L INTERFACE SYSTEM ALBUMIN/GLOBULIN RATIO 0.9(L) 1.0 - 2.3 INTERFACE SYSTEM OSMOLALITY, CALCULATED 300(H) 275 - 295 mOsm/Kg INTERFACE SYSTEM 10/18/2004 5:09 PM CDT us Arnoldo Pope MD CHEMISTRY ORDERABLES Final Result INTERFACE SYSTEM Refer to clinic/hospital department * (ABNORMAL) CBC WITH DIFFERENTIAL (10/18/2004 5:09 PM CDT) WBC 5.2 4.5 - 11.0 K/ul INTERFACE SYSTEM RBC 4.15(L) 4.20 - 5.40 Mil/ul INTERFACE SYSTEM HEMOGLOBIN 13.3 12.0 - 16.0 g/dL INTERFACE SYSTEM HEMATOCRIT 37.9 36.0 - 46.0 % INTERFACE SYSTEM MCV 91.3 84.0 - 103.0 Fl INTERFACE SYSTEM MCH 32.0 27.0 - 34.0 pg INTERFACE SYSTEM MCHC 35.1(H) 30.0 - 35.0 g/dL INTERFACE SYSTEM RDW 12.5 11.0 - 14.5 % INTERFACE SYSTEM PLATELETS 215 140 - 440 K/ul INTERFACE SYSTEM MPV 10.5 8.9 - 12.8 Fl INTERFACE SYSTEM NEUTROPHILS 49.7 42.2 - 75.2 % INTERFACE SYSTEM LYMPHOCYTES 33.8 24.0 - 44.0 % INTERFACE SYSTEM MONOCYTES 13.1(H) 2.0 - 10.0 % INTERFACE SYSTEM EOSINOPHILS 2.1 0.0 - 7.0 % INTERFACE SYSTEM BASOPHILS 1.3(H) 0.0 - 1.0 % INTERFACE SYSTEM NEUTROPHIL ABSOLUTE 2.6 2.0 - 8.0 K/uL INTERFACE SYSTEM LYMPHOCYTE ABSOLUTE 1.8 1.2 - 4.0 K/ul INTERFACE SYSTEM MONOCYTE ABSOLUTE 0.7(H) 0.1 - 0.6 K/ul INTERFACE SYSTEM EOSINOPHIL ABSOLUTE 0.1 0.0 - 0.7 K/ul INTERFACE SYSTEM BASOPHILS ABSOLUTE 0.1 0.0 - 0.2 K/ul INTERFACE SYSTEM 10/18/2004 5:09 PM CDT us Arnoldo Pope MD HEMATOLOGY ORDERABLES Final Result INTERFACE SYSTEM Refer to clinic/hospital department documented in this encounter Visit Diagnoses Diagnosis Tension headache- Primary documented in this encounter Care Teams Model Photographers' Relationship Specialty Start Date End Date Sincere Hollingsworth MD NO ADDRESS ON FILE PCP - General 10/18/04 documented as of this encounter
--- OUTSIDE RECORDS SUMMARY | 2024-06-13 04:27 | XMS_ITS | Encounter Summary ---
Author Organization [facility] Address [address] [place] [address] Care Team Providers Care Pediatric Orthodontist Name Role Phone Sincere Hollingsworth MD Primary Care Provider Unavailable Encounter Details Date Type Department Care Team (Latest Contact Info) Description 03/21/2005 Outpatient Historical [facility] Multidisciplinary Chronic Pain [address] [place] [address] Arnoldo Pope MD [address] [place] [address] PSYCHOGENIC PAIN NEC (Primary Dx) Social History Tobacco Use Types Packs/Day Years Used Date Smoking Tobacco: Never Assessed Comments Unknown Sex and Gender Information Value Date Recorded Sex Assigned at Not on file Legal Sex Female 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
--- OUTSIDE RECORDS SUMMARY | 2024-06-13 04:27 | XMS_ITS | Encounter Summary ---
Author Organization [facility] Address [address] [place] [address] Care Team Providers Care Senior Licensing Manager Name Role Phone Sincere Hollingsworth MD Primary Care Provider Unavailable Encounter Details Date Type Department Care Team (Late st Contact Info) Description 11/29/2004 Outpatient Historical [facility] [address] [place] [address] Social History Tobacco Use Types Packs/Day Years Used Date Smoking Tobacco: Never Assessed Comments Unknown Sex and Gender Information Value Date Recorded Sex Assigned at Not on file Legal Sex Female 5:20 AM WEAPONS DESIGNER Gender Identity Not on file Sexual Orientation Not on file documented as of this encounter Plan of Treatment Not on file documented as of this encounter Visit Diagnoses Not on filedocumented in this encounter Care Teams Senior Licensing Manager Relationship Specialty Start Date End Date Sincere Hollingsworth MD NO ADDRESS ON FILE PCP - General 10/18/04 documented as of this encounter
--- OUTSIDE RECORDS SUMMARY | 2024-06-13 04:27 | XMS_ITS | Encounter Summary ---
Author Organization [facility] Address [address] [place] [address] Care Team Providers Care Learning Facilitator Name Role Phone Sincere Hollingsworth MD Primary Care Provider Unavailable Encounter Details Date Type Department Care Team (Late st Contact Info) Description 08/23/2005 Outpatient Historical [facility] Multidisciplinary Chronic Pain [address] [place] [address] Arnoldo Pope MD [address] [place] [phone] Social History Tobacco Use Types Packs/Day Years Used Date Smoking Tobacco: Never Assessed Comments Unknown Sex and Gender Information Value Date Recorded Sex Assigned at Not on file Legal Sex Female 5:20 AM CHIEF TECHNOLOGIST Gender Identity Not on file Sexual Orientation Not on file documented as of this encounter Plan of Treatment Not on file documented as of this encounter Visit Diagnoses Not on filedocumented in this encounter Care Teams Learning Facilitator Relationship Specialty Start Date End Date Sincere Hollingsworth MD NO ADDRESS ON FILE PCP - General 10/18/04 documented as of this encounter
--- OUTSIDE RECORDS SUMMARY | 2024-06-13 04:27 | XMS_ITS | Clinical Summary ---
Author Organization [facility] Address [address] [facility] Attn: Epic Prelude ADT [facility] [place] [address] Care Team Providers Care Cushion Cover Inspector Name Role Phone Sincere Hollingsworth MD Primary Care Provider Unavailable Allergies Active Allergy Reactions Criticality Noted Date Comments Zolpidem Delirium Medium 12/07/2022 I do wild things, sleep walking Medications gabapentin (NEURONTIN) 800 mg tablet Take 800 mg by mouth 3 times daily. Active methocarbamoL (ROBAXIN) 500 mg tablet Take 1,000 mg by mouth 2 times daily. Active hydrOXYchloroQUI NE (PLAQUENIL) 200 mg tablet Take 200 mg by mouth daily. Active ARIPiprazole (ABILIFY) 20 mg tablet Take 20 mg by mouth daily. Active loratadine (CLARITIN) 10 mg tablet Take 10 mg by mouth daily. Active dicyclomine (BENTYL) 10 mg capsule Take 10 mg by mouth 2 times daily. Active allopurinoL (ZYLOPRIM) 100 mg tablet Take 200 mg by mouth daily. Active trihexyphenidyL (ARTANE) 2 mg tablet Take 2 mg by mouth 3 times daily. Active propranoloL (INDERAL) 10 mg tablet Take 10 mg by mouth 3 times daily. Active desvenlafaxine (PRISTIQ) 100 mg Extended Release 24 hour tablet Take 100 mg by mouth daily with breakfast. Active HYDROcodone-acet aminophen (NORCO) 10-325 mg Tablet Take 1 Tablet by mouth. Active hydrOXYzine HCL (ATARAX) 25 mg tablet Take 25 mg by mouth 3 times daily as needed for Anxiety. Active Active Problems Problem Noted Date Diagnosed Date Angina at rest 12/07/2022 Elevated troponin 12/07/2022 NSTEMI (non-ST elevated myocardial infarction) 0 12/07/2022 Social History Tobacco Use Types Packs/Day Years Used Date Smoking Tobacco: Every Day Cigarettes Smokeless Tobacco: Never Tobacco Cessation:Ready to Q uit: Not Asked; Counseling Given: Not Answered Alcohol Use Standard Drinks/Week Comments Never 0 (1 standard drink = 0.6 oz pur e alcohol) Feeling Safe Answer Date Recorded Are you in a relationship wi th someone who hurts you emotionally and/or physically? 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 Gender Identity Not on file Sexual Orientation Not on file Last Filed Vital Signs Vital Sign Reading Time Taken Comments Blood Pressure 138/72 12/07/2022 6:00 AM CDT Pulse 65 12/07/2022 6:00 AM CDT Temperature 36.2 ??C (97.1 ??F) 12/07/2022 1:20 AM CD T Respiratory Rate 18 12/07/2022 6:00 AM CDT Oxygen Saturation 96% 12/07/2022 6:00 AM CDT Inhaled Oxygen Concentration - - Weight 102.6 kg (226 lb 3.2 oz) 12/07/2022 1:20 AM CDT Height 165.1 cm (5' 5 ) 12/07/2022 1:20 AM CDT Body Mass Index 37.64 12/07/2022 1:20 AM CDT Plan of Treatment Health Maintenance Due Date Last Done Comments PNEUMOCOCCAL VACCINE 0-49 YE ARS (1 of 2 - PCV) 07/30/1969 DTAP/TDAP/TD VACCINES (1 - Tdap) 07/30/1982 ZOSTER VACCINE (1 of 2) 07/30/1982 CERVICAL CANCER SCREENING 07/30/1993 BREAST CANCER SCREENING 2003 COLORECTAL SCREENING 07/30/2008 Colorectal Cancer Screening 07/30/2008 FIT-DNA Q 3 years 07/30/2008 FIT/FOBT Q 1 year 07/30/2008 Flex Sig/CT Colonography Q 5 years 07/30/2008 RSV VACCINE (60+ or ) (1 - Risk 60-74 years 1-dose series) 2023 INFLUENZA VACCINE (#1) 2023 HEPATITIS B VACCINES Aged Out No long er eligible based on patient's age to complete this topic Insurance MEDICAID [place] Care Teams Cushion Cover Inspector Relationship Specialty Start Date End Date Sincere Hollingsworth MD NO ADDRESS ON FILE PCP - General 10/18/04
--- OUTSIDE RECORDS SUMMARY | 2024-06-13 04:27 | XMS_ITS | Encounter Summary ---
Author Organization [facility] Address [address] [place] [address] Care Team Providers Care Back Shoe Worker Name Role Phone Sincere Hollingsworth MD Primary Care Provider Unavailable Encounter Details Date Type Department Care Team (Late st Contact Info) Description 12/30/2004 Outpatient [facility] [address] [place] [address] Social History Tobacco Use Types Packs/Day Years Used Date Smoking Tobacco: Never Assessed Comments Unknown Sex and Gender Information Value Date Recorded Sex Assigned at Not on file 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
--- OUTSIDE RECORDS SUMMARY | 2024-06-13 04:27 | XMS_ITS | Encounter Summary ---
Author Organization [facility] Address [address] [place] [address] Care Team Providers Care Skip Loader Name Role Phone Sincere Hollingsworth MD Primary Care Provider Unavailable Encounter Details Date Type Department Care Team (Late st Contact Info) Description 03/08/2005 Outpatient Historical [facility] [address] [place] [address] Social History Tobacco Use Types Packs/Day Years Used Date Smoking Tobacco: Never Assessed Comments Unknown Sex and Gender Information Value Date Recorded Sex Assigned at Not on file 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
--- OUTSIDE RECORDS SUMMARY | 2024-06-13 04:27 | XMS_ITS | Encounter Summary ---
Author Organization [facility] Address [address] [place] [address] Care Team Providers Care Wheel Aligner Name Role Phone Sincere Hollingsworth MD Primary Care Provider Unavailable Encounter Details Date Type Department Care Team (Late st Contact Info) Description 12/15/2004 Outpatient Historical [facility] [address] [place] [address] Social History Tobacco Use Types Packs/Day Years Used Date Smoking Tobacco: Never Assessed Comments Unknown Sex and Gender Information Value Date Recorded Sex Assigned at Not on file 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
--- OUTSIDE RECORDS SUMMARY | 2024-06-13 04:27 | XMS_ITS | Encounter Summary ---
Author Organization [facility] Address [address] [place] [address] Care Team Providers Care Engineering Design Supervisor Name Role Phone Sincere Hollingsworth MD Primary Care Provider Unavailable Encounter Details Date Type Department Care Team (Late st Contact Info) Description 01/12/2005 Outpatient Historical [facility] [address] [place] [address] Social History Tobacco Use Types Packs/Day Years Used Date Smoking Tobacco: Never Assessed Comments Unknown Sex and Gender Information Value Date Recorded Sex Assigned at Not on file 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
[2024-06-13] MEDS: oxyCODONE 10 mg ER (12 HR) Tablet PO ×2 (08:32→17:09)
[2024-06-13] MEDS: desvenlafaxine 50 mg Tablet 100 MG PO (08:33)
[2024-06-13] MEDS: metoprolol succinate ER (24 HR) 25 mg Tablet PO (08:33)
[2024-06-13] MEDS: methocarbamol 500 mg Tablet PO ×2 (08:33→17:09)
[2024-06-13] MEDS: dicyclomine 10 mg Capsule PO ×2 (08:33→17:08)
[2024-06-13] MEDS: docusate sodium 100 mg Capsule PO ×2 (08:33→17:08)
[2024-06-13] MEDS: loratadine 10 mg Tablet PO (08:33)
[2024-06-13] MEDS: gabapentin 400 mg Capsule 800 MG PO ×3 (08:33→20:22)
[2024-06-13] MEDS: allopurinol 100 mg Tablet PO (08:33)
[2024-06-13] MEDS: ARIPiprazole 10 mg Tablet 20 MG PO (08:33)
[2024-06-13] MEDS: propranolol 20 mg Tablet 10 MG PO ×3 (08:34→20:23)
[2024-06-13] MEDS: losartan 50 mg Tablet 25 MG PO (08:34)
[2024-06-13 09:57] LABS: Hematocrit 29.2 % (36-47); Mean Corpuscular HGB Conc 33.2 g/dL (30-55); Mean Corpuscular Hemoglobin 31.3 pg (27-33); Mean Corpuscular Volume 94.2 fl (85-98); Mean Platelet Volume 9.8 fL (7.4-10.4); Platelet Count 162 10^3/cmm (157-399); Red Cell Distribution Width 12.8 % (12.1-15.1); White Blood Count 11.29 10^3/uL (3.29-11.43)
--- NOTE | 2024-06-13 10:04 | P.PN_ITS ---
Subjective 2 Subjective: Patient is doing well sitting up in chair. Having some pain but controlled with pain meds. Vitals/I&O/Wt Last Vital Signs Temp 98.9 F 06/13/24 07:23 Pulse 77 06/13/24 07:23 Resp 16 06/13/24 07:23 BP 107/71 06/13/24 07:23 Pulse Ox 98 06/13/24 07:23 O2 Del Method Nasal Cannula 06/13/24 07:23 O2 Flow Rate 1 06/13/24 07:23 06/12/24 06/13/24 06/13/24 22:59 06:59 14:59 Intake Total 2320 / 2320 450 / 2770 240 / 240 Output Total 850 / 850 490 / 1340 Balance 1470 / 1470 -40 / 1430 240 / 240 Weight last 48 hrs Weight 251 lb 12.8 oz Weight 249 lb 14.4 oz Weight 243 lb Physical Exam 2 Narrative: Patient's 5-5 strength bilateral lower extremities legs have no pain. Just has a little bit of right hip pain at this point. Urinary Catheter Management: Alaniz: Cath Placed During This Visit: yes, but has since been removed by the nurse Reason for Continuing Indwelling Catheter: Decision to DC Catheter Urinary Catheter Date of Insertion: 06/12/24 Urinary Catheter Time of Insertion: 14:50 Date Urinary Catheter Removed: 06/13/24 Time Urinary Catheter Discontinued: 05:57 Data 06/13/24 09:40 A&P Assessment and plan (1) Status post lumbar spinal fusion: Patient is postop day #1 lumbar fusion Up with physical therapy DC Alaniz DC Hemovac drain Anticipate discharge tomorrow PDMP PDMP Reviewed: Not Reviewed Attestations 2 Medical Necessity Statement*: Pain control Coding Level of Care Code Acute Code for Chg Fwd Diagnoses Status post lumbar spinal fusion Z98.1
[2024-06-13 10:26] LABS: Absolute Neutrophil 8.9 10^3/cmm (1.4-6.5); Absolute Segmented Neutrophil 8.9 10/cmm (1.6-7.1); Eosinophils 0 %; Lymphocytes 11 %; Lymphocytes Absolute 1.6 10^3/cmm (1.2-3.4); Monocytes Absolute 0.8 10^3/cmm (0.1-0.6); Platelet Estimate Decreased (Normal); Segmented Neutrophils 79 %; Total Cells Counted 100 (0-100)
[2024-06-13 10:41] LABS: Glucose Point of Care 202 mg/dL (70-110)
--- NOTE | 2024-06-13 11:39 | PC.NURSE ---
hemovac discontinued per orders
[2024-06-13] MEDS: oxyCODONE-APAP 10-325 mg Tablet PO (11:40)
[2024-06-13] MEDS: lactated ringers 1,000 ML 90 ML IV ×2 (11:43→22:37)
[2024-06-13 17:09] LABS: Glucose Point of Care 213 mg/dL (70-110)
[2024-06-13] MEDS: atorvastatin 40 mg Tablet 80 MG PO (20:23)
[2024-06-13 20:51] LABS: Glucose Point of Care 238 mg/dL (70-110)
[2024-06-14] VITALS (10 sets, daily range): BP systolic 107–124; BP diastolic 55–74; PULSE 90–104; RESP 16–18; TEMP 37.2–37.5; O2SAT 90–93
[2024-06-14] MEDS: oxyCODONE-APAP 10-325 mg Tablet PO ×2 (01:31→10:36)
[2024-06-14 05:45] LABS: Hematocrit 24.5 % (36-47); Mean Corpuscular HGB Conc 32.2 g/dL (30-55); Mean Corpuscular Hemoglobin 31.9 pg (27-33); Mean Corpuscular Volume 98.8 fl (85-98); Mean Platelet Volume 10.1 fL (7.4-10.4); Platelet Count 117 10^3/cmm (157-399); Red Blood Count 2.48 10^6/uL (3.85-5.65); Red Cell Distribution Width 13.4 % (12.1-15.1); White Blood Count 8.47 10^3/uL (3.29-11.43)
[2024-06-14 06:23] LABS: Glucose Point of Care 163 mg/dL (70-110)
[2024-06-14 06:34] LABS: Absolute Segmented Neutrophil 5.9 10/cmm (1.6-7.1); Eosinophils 0 %; Lymphocytes 21 %; Monocytes Absolute 0.8 10^3/cmm (0.1-0.6); Segmented Neutrophils 70 %; Total Cells Counted 100 (0-100)
[2024-06-14 06:35] LABS: Macrocytosis Trace; Platelet Estimate Decreased (Normal)
--- NOTE | 2024-06-14 08:10 | P.DS_ITS ---
Discharge Providers Date of Admission: 06/12/24 19:48 Date of Discharge: June 14, 2024 Attending Provider at Admission: Jayesh Cantu DO Attending Provider at Discharge: Jayesh Cantu DO Primary Care Provider: Jackie James MD Diagnoses at Discharge Discharge Diagnosis (1) Status post lumbar spinal fusion: Status: Acute Reason for Visit Reason for Visit: M48.062 Physical Exam Narrative: Patient's pain is controlled on pain meds. At this time her hemoglobin was little low at 7.9 however vitals are stable blood pressure was 125/55 and pulse was slightly high at 104. Urinary Catheter Management: Alaniz: Cath Placed During This Visit: yes, but has since been removed by the nurse Reason for Continuing Indwelling Catheter: Decision to DC Catheter Urinary Catheter Date of Insertion: 06/12/24 Urinary Catheter Time of Insertion: 14:50 Date Urinary Catheter Removed: 06/13/24 Time Urinary Catheter Discontinued: 05:57 Discharge Data Studies Completed and Pending Completed Studies During Hospitalization Category Date Time Status XR lumbar spine 2-3V* [id number] Routine Exams 06/12/24 16:42 Completed Pending at discharge Category Date Time Status C-arm Fluoroscopy [id number] Routine Exams 06/12/24 10:48 Taken CBC Auto Diff [Complete Blood Count w/Auto] Routine Lab 06/12/24 19:26 Ordered Radiology Impressions Lumbar Spine X-Ray 06/12/24 16:42 IMPRESSION: L5-S1 disc space procedure as above. Laboratory Results WBC 8.47 10^3/uL (3.29-11.43) 06/14/24 05:38 RBC 2.48 10^6/uL (3.85-5.65) L 06/14/24 05:38 Hgb 7.90 g/dL (11.27-16.99) L 06/14/24 05:38 Hct 24.5 % (36-47) L 06/14/24 05:38 MCV 98.8 fl (85-98) H 06/14/24 05:38 MCH 31.9 pg (27-33) 06/14/24 05:38 MCHC 32.2 g/dL (30-55) 06/14/24 05:38 RDW 13.4 % (12.1-15.1) 06/14/24 05:38 Plt Count 117 10^3/cmm (157-399) L 06/14/24 05:38 MPV 10.1 fL (7.4-10.4) 06/14/24 05:38 Total Counted 100 (0-100) 06/14/24 05:38 Atypical Lymphs % Not Reportable 06/14/24 05:38 Absolute Neutrophils 8.9 10^3/cmm (1.4-6.5) H 06/13/24 09:40 Segmented Neutrophils 70 % 06/14/24 05:38 Band Neutrophils Not Reportable 06/14/24 05:38 Absolute Lymphocytes 1.6 10^3/cmm (1.2-3.4) 06/13/24 09:40 Lymphocytes (Manual) 21 % 06/14/24 05:38 Monocytes (Manual) 9.0 % 06/14/24 05:38 Absolute Monocytes 0.8 10^3/cmm (0.1-0.6) H 06/14/24 05:38 Eosinophils (Manual) 0 % 06/14/24 05:38 Absolute Eosinophils 0.0 10^3/cmm (0.0-0.7) 06/14/24 05:38 Basophils (Manual) 0.0 % 06/14/24 05:38 Absolute Basophils 0.0 10^3/cmm (0.0-0.2) 06/14/24 05:38 Platelet Estimate Decreased (Normal) L 06/14/24 05:38 Macrocytosis Trace 06/14/24 05:38 POC Glucose 163 mg/dL (70-110) H 06/14/24 06:20 Blood Type A Positive 06/12/24 13:20 Rho(D) Type Rh positive 06/12/24 13:20 Antibody Screen Negative 06/12/24 13:20 Vitals Last Vital Signs Temp 99.5 F 06/14/24 08:00 Pulse 104 H 06/14/24 08:00 Resp 18 06/14/24 08:00 BP 124/55 06/14/24 08:00 Pulse Ox 92 06/14/24 08:00 O2 Del Method Room Air 06/14/24 08:00 O2 Flow Rate 1 06/13/24 19:40 Discharge Plan Discharge Patient Disposition: Home Condition: Stable Prescriptions: New hydrocodone-acetaminophen 10-325 mg tablet 1 tab PO Q4H PRN (Reason: pain) 7 Days Qty: 42 0RF Continued gabapentin 800 mg tablet 800 mg PO TID methocarbamol 500 mg tablet 500 mg PO BID allopurinol 100 mg tablet 100 mg PO DAILY dicyclomine 10 mg capsule 10 mg PO BID albuterol sulfate [ProAir HFA] 90 mcg/actuation HFA aerosol inhaler 2 puff inhalation Q6H PRN (Reason: Shortness Of Breath) eszopiclone 2 mg tablet 1 mg PO DAILY loratadine [Allergy Relief (loratadine)] 10 mg tablet 10 mg PO DAILY Trulicity 0.75 mg/0.5 mL pen injector 0.75 mg SUBCUT Q7D hydroxyzine HCl 50 mg tablet 50 mg PO TID PRN (Reason: anxiety) Qty: 90 2RF propranolol 10 mg tablet 10 mg PO TID Qty: 90 2RF losartan 25 mg tablet 25 mg PO DAILY Qty: 90 3RF nitroglycerin 0.4 mg tablet, sublingual 0.4 mg sublingual Q5M PRN (Reason: chest pain) Qty: 30 3RF Rx Instructions: do not exceed 3 doses per episode metoprolol succinate 25 mg tablet extended release 24 hr 25 mg PO DAILY Qty: 90 3RF atorvastatin 80 mg tablet 80 mg PO DAILY Qty: 90 3RF trihexyphenidyl 2 mg tablet 2 mg PO TID Rx Instructions: TAKE 1 TABLET BY MOUTH THREE TIMES DAILY aripiprazole 20 mg tablet 20 mg PO DAILY Rx Instructions: TAKE 1 TABLET BY MOUTH DAILY desvenlafaxine succinate 100 mg tablet extended release 24 hr 100 mg PO DAILY Rx Instructions: TAKE 1 TABLET BY MOUTH DAILY Held aspirin [Adult Aspirin Regimen] 81 mg tablet,delayed release (DR/EC) 81 mg PO DAILY Qty: 90 3RF Hold Instructions: Resume on 06/16/24. clopidogrel 75 mg tablet 75 mg PO DAILY Qty: 90 3RF Hold Instructions: Resume on 06/16/24. Discontinued hydrocodone-acetaminophen 10-325 mg tablet 1 tab PO Q5H Discharge Orders: Discharge Order (Routine); Ordered 06/14/24 Ordered By: Jayesh Cantu Discharge Diet: Advance as tolerated Discharge Activity: Limit activity as instructed Patient Instructions: Acute Wound Care (DC), Opioid Safety, Post Anesthesia Care Activity Restrictions/Additional Instructions: [facility] The following is a list of instructions, from your provider, to follow upon your discharge to ensure you have the optimal recovery from your recent injury orsurgery. Follow-up care is a padilla part of your treatment and safety. Be sure to make and go to all appointments, and call your doctor if you are having problems. If you do not already have a follow-up appointment made, call Dr. Cantu office in the next 1-3 days to make follow up appointment for 1 weeks at [phone]. It is also a good idea to know your test results and keep a list of the medicines you take. Medications will be prescribed for you at your provider's discretion. These medications are to be used as instructed; if they are taken more often that prescribed they will not be refilled early and in most cases will not be refilled at all. > When a refill is needed,you should contact our office 2-3 business days before your prescription runs out. Medications will NOT be refilled by orthodontic lab technician providers after hours! > Many pain medications contain Tylenol (Acetaminophen). Do not consume more than 4,000 mg of Tylenol per day in total with any combination ofmedications. > Pain medications can cause constipation. Please use an over the counter stool softener as directed, while taking pain medications. Consulty our local pharmacist with questions or recommendations on stool softeners. If constipation persists, contact our office or your primary care provider. > While under our care,you are not to receive pain medications or other controlled substances from any other provider unless our office is notified and approves. Any attempts to do so will result in refusal to prescribe any further pain medications and possible dismissal from our practice. ? Keep dressing on for 1 week we will change in the clinic. ? Walking is essential for the healing process after surgery. We would like you to slowly advance your walking. This should be done on relatively flat clear ground (inside or out) or can be done on a treadmill. Remember this goal does not have to happen all at once, slowly increase your distance and duration. This can be broken into more more than one walk per day as tolerated. Patients who walk as directed after surgery rarely require Physical Therapy. In the unlikely event this issue arises your provider will direct hospital staff to make the appropriate arrangements. ? No lifting over 5 pounds {a gallon of milk) or bending/twisting until further notice. Each of these activities places an unnecessary amount of stress onto the body and can impede the delicate healing process. > Instead of bending at the waist, keep your back straight and bend at the knees. > Instead of twisting your torso, keep your back straight and turn your entire body with your feet. ? You may sleep in any position which makes you comfortable. Many patients find comfort sleeping in a reclining chair. It is not abnormal to have difficulty sleeping for the first several weeks following your surgery. We elisabeth mmend trying Benadry! or Tylenol PM as directed to help with your sleeping difficulties. Both medications are over the counter and available withoutprescription. ? NO SMOKING!!! Smoking dramatically increases the probability of developing postoperative wound infections. ? Common complaints after lumbar and/or thoracic spine surgery include, but are not limited to: numbness and/or tingling in the legs, pain around the incision and surrounding tissues, muscle spasms, or stiffness of the middle to low back. Contact our office if these symptoms persist or if an acute change occurs. ? No driving for the first 3-5days, and not while taking narcotics [] until seen at your follow-up appointment and cleared. There are no restrictions for riding on short trips, however if you take a longer trip, arrangements should be made to make regular stops to get out of the vehicle and stretch . ? Swelling is an unfortunate event that will take place with any surgery and is the primary source of your postoperative discomfort. While walking and regular approved activities helps control inflammation, there are additional steps you can take to minimizeswelling. > Place ice over the surgical site and surrounding tissue for twenty minutes, followed by applying a low/medium heat (heating pad) for an additional twenty minutes every 1-2 hours as needed for painrelief. > You may use of over the counter anti-inflammatory medications (Ibuprofen, Motrin, Aleve, Advil, etc) as directed on the package label. These types of medicines wm significantly reduce the amount of discomfort you experience after surgery from swelling. It should be noted that if you have and allergy to any of these medications, or a history of ulcers or kidney disease you should consult you primary care provider prior to starting these medications. Discharge Attestations Time Spent in Discharge Care*: less than 30 min Quality Metrics Clinical Quality Measures [ No reported AMI, CVA or VTE this stay] Coding Level of Care Code Acute Code for Chg Fwd Diagnoses Status post lumbar spinal fusion Z98.1
[2024-06-14] MEDS: gabapentin 400 mg Capsule 800 MG PO (08:38)
[2024-06-14] MEDS: dicyclomine 10 mg Capsule PO (08:40)
[2024-06-14] MEDS: ARIPiprazole 10 mg Tablet 20 MG PO (08:40)
[2024-06-14] MEDS: methocarbamol 500 mg Tablet PO (08:40)
[2024-06-14] MEDS: desvenlafaxine 50 mg Tablet 100 MG PO (08:41)
[2024-06-14] MEDS: docusate sodium 100 mg Capsule PO (08:41)
[2024-06-14] MEDS: allopurinol 100 mg Tablet PO (08:41)
[2024-06-14] MEDS: loratadine 10 mg Tablet PO (08:42)
[2024-06-14] MEDS: oxyCODONE 10 mg ER (12 HR) Tablet PO (08:42)
[2024-06-14] MEDS: propranolol 20 mg Tablet 10 MG PO (08:46)
[2024-06-14] MEDS: metoprolol succinate ER (24 HR) 25 mg Tablet PO (08:47)
[2024-06-14] MEDS: losartan 50 mg Tablet 25 MG PO (08:47)
--- NOTE | 2024-06-14 10:50 | PC.NURSE ---
Spoke with Dr. Cantu regarding patient's hemoglobin being 7.9. Dr. Cantu states that it is okay for patient to go because her vitals are stable.
[2024-06-14 11:34] LABS: Glucose Point of Care 218 mg/dL (70-110)
--- NOTE | 2024-06-14 15:46 | PC.NURSE ---
Discussed discharge with patient and spouse. Discussed follow up appointments, new medications, continued medications and held medications and to restart the held medications on 06-16-2024. Instructed patient on pain and bleeding as well as signs and symptoms of infection. Patient verbalized understanding. Acute surgical incision was changed once again before patient left and reinforced steri strips on wound. Silveloin dressing sent with patient and instructed to all Dr. Cantu's office if continues or come to the emergency department.
== END 2024-06-14 14:02 | disposition home or self-care (01) | DRG 427 ==
LOC: MEDSURG 06-13 04:24
PROVIDERS: Admitting Provider Orthopaedic Surgery; PCP Family Medicine; Visit Provider Orthopaedic Surgery
PROC: 0SG1071 Fusion of 2 or more Lumbar Vertebral Joints with Autologous Tissue Substitute, Posterior Approach, Posterior Column, Open Approach (ICD-10-PCS; principal; 2024-06-12 12:35)
PROC: 0SG1071 Fusion of 2 or more Lumbar Vertebral Joints with Autologous Tissue Substitute, Posterior Approach, Posterior Column, Open Approach (ICD-10-PCS; CPT 22612; 2024-06-12 12:35)
PROC: 0SG1071 Fusion of 2 or more Lumbar Vertebral Joints with Autologous Tissue Substitute, Posterior Approach, Posterior Column, Open Approach (ICD-10-PCS; 2024-06-12 12:35)
PROC: 0SG1071 Fusion of 2 or more Lumbar Vertebral Joints with Autologous Tissue Substitute, Posterior Approach, Posterior Column, Open Approach (ICD-10-PCS; CPT 27280; 2024-06-12 12:35)
DX: M48.062 Spinal stenosis, lumbar region with neurogenic claudication (principal); F31.81 Bipolar II disorder; Z86.73 Personal history of transient ischemic attack (TIA), and cerebral infarction without residual deficits; I10 Essential (primary) hypertension; F17.210 Nicotine dependence, cigarettes, uncomplicated; E11.9 Type 2 diabetes mellitus without complications; Z79.891 Long term (current) use of opiate analgesic; Z79.84 Long term (current) use of oral hypoglycemic drugs; Z79.02 Long term (current) use of antithrombotics/antiplatelets; Z85.528 Personal history of other malignant neoplasm of kidney; Z90.5 Acquired absence of kidney
CPT/HCPCS: 36415; 36416; 51702; 72100; 76000; 82962; 85007; 85027; 86850; 86900; 97116; 97161; 97530; C1713; C1734; C1762; C1781; J0131; J0330; J0690; J1100; J1171; J1644; J1885; J2405; J2704; J3010; J3370; J3490; J3535; J7030; J7120; P9045

== ENCOUNTER → 2024-06-27 12:45 | Outpatient (BNVA) | payer MEDICAID, SELFPAY | PROVIDERS: PCP Family Medicine; Visit Provider Orthopaedic Surgery | DX: Z98.1 Arthrodesis status (principal) | CPT/HCPCS: 99024 ==

== ENCOUNTER → 2024-07-30 13:05 | Outpatient (BNVA) | payer MEDICAID, SELFPAY | PROVIDERS: PCP Family Medicine; Visit Provider Orthopaedic Surgery | DX: Z98.1 Arthrodesis status (principal) | CPT/HCPCS: 72100; 99024 ==

== ENCOUNTER 2024-08-09 10:00 | Outpatient (CLI) | payer MEDICAID, SELFPAY ==
--- NOTE | 2024-08-09 10:30 | CTR_ITS ---
PROCEDURE INFORMATION: Exam: CTA Chest With Contrast Exam date and time: 08/09/2024 11:27 AM Age: 59 years old Clinical indication: Prior surgery; Surgery date: 1-6 months; Surgery type: June surgery, . RT kidney removed, heart stents x 2; Shortness of breath since June surgery, HX of kidney cancer TECHNIQUE: Imaging protocol: Computed tomographic angiography of the chest with contrast. Exam focused on the arteries. 3D rendering (Not supervised by radiologist): MIP and/or 3D reconstructed images were created by the technologist. Radiation optimization: All CT scans at this facility use at least one of these dose optimization techniques: automated exposure control; mA and/or kV adjustment per patient size (includes targeted exams where dose is matched to clinical indication); or iterative reconstruction. Contrast material: OMNI 350; Contrast volume: 100 ml; Contrast route: INTRAVENOUS (IV); COMPARISON: CR XR chest 2V insp/exp [id number] 04/14/2022 1:30 PM RADIATION DOSE METRICS: Total DLP (mGy-cm): 397.62 FINDINGS: Pulmonary arteries: Normal. No pulmonary emboli. Aorta: Unremarkable. No aortic aneurysm. No aortic dissection. Lungs: Unremarkable. No consolidation. No masses. Pleural spaces: Unremarkable. No pneumothorax. No pleural effusion. Heart: Unremarkable. No cardiomegaly. No pericardial effusion. Lymph nodes: Unremarkable. No enlarged lymph nodes. Bones/joints: Unremarkable. No acute fracture. Soft tissues: Unremarkable. CT/CT angio chest PE protcl [id number] IMPRESSION: No acute findings.
[2024-08-09 11:22] LABS: Blood Urea Nitrogen 18 mg/dL (8-23); Glomerular Filtration Rate 85.1 mL/min (90-130)
[2024-08-09] MEDS: iohexol 350 mg/mL 500 mL Btl (per mL) IV (11:34)
== END 2024-08-09 10:01 | disposition home or self-care (01) ==
LOC: RAD 10:00
PROVIDERS: PCP Family Medicine; Visit Provider Orthopaedic Surgery
DX: R06.02 Shortness of breath (principal)
CPT/HCPCS: 71275; 82565; 84520

== ENCOUNTER → 2024-08-20 08:00 | Outpatient (BNVA) | payer MEDICAID, SELFPAY | PROVIDERS: Visit Provider Orthopaedic Surgery | DX: Z98.1 Arthrodesis status (principal) | CPT/HCPCS: 72100; 99024 ==

== ENCOUNTER → 2024-09-11 07:50 | Outpatient (BNVA) | payer MEDICAID, SELFPAY | PROVIDERS: PCP Family Medicine; Visit Provider Family Medicine | DX: Z00.00 Encounter for general adult medical examination without abnormal findings (principal); Z51.81 Encounter for therapeutic drug level monitoring; G62.9 Polyneuropathy, unspecified; I10 Essential (primary) hypertension; E78.5 Hyperlipidemia, unspecified; Z79.899 Other long term (current) drug therapy; C64.1 Malignant neoplasm of right kidney, except renal pelvis | CPT/HCPCS: 85025 ==

== ENCOUNTER → 2024-10-02 10:40 | Outpatient (BNVA) | payer MEDICAID, SELFPAY | PROVIDERS: PCP Family Medicine; Visit Provider Nurse Practitioner Family | DX: I25.119 Atherosclerotic heart disease of native coronary artery with unspecified angina pectoris (principal); I10 Essential (primary) hypertension; E78.5 Hyperlipidemia, unspecified; Z79.02 Long term (current) use of antithrombotics/antiplatelets; Z79.82 Long term (current) use of aspirin; F17.290 Nicotine dependence, other tobacco product, uncomplicated; R07.9 Chest pain, unspecified; R06.09 Other forms of dyspnea; I25.10 Atherosclerotic heart disease of native coronary artery without angina pectoris | CPT/HCPCS: 99214 ==

== ENCOUNTER 2024-10-15 06:23 | Outpatient (CLI) | payer MEDICAID, SELFPAY ==
--- NOTE | 2024-10-15 06:30 | USCV_ITS ---
Natalee Null Age: 59 Gender: F : 1965 Exam Date: 10/15/2024 06:36 Ordering Phys: Giulia Jennings Technologist: ELIS Exam Location: [facility] – [place] Indication: Dyspnea BP: 154 / 80 HR: 67 Rhythm: Sinus Technical Quality: Adequate MEASUREMENTS (Male / Female) Normal Values 2D ECHO LV Diastolic Diameter PLAX 4.6 cm 4.2 - 5.9 / 3.9 - 5.3 cm IVS Diastolic Thickness 1.0 cm 0.6 - 1.0 / 0.6 - 0.9 cm IVS Systolic Thickness 1.6 cm LVPW Diastolic Thickness 1.4 cm 0.6 - 1.0 / 0.6 - 0.9 cm LVPW Systolic Thickness 1.4 cm LVOT Diameter 1.9 cm LV Ejection Fraction 2D Teich 64.5 % LV Ejection Fraction MOD 4C 59.1 % LV Ejection Fraction MOD 2C 60.8 % LV Ejection Fraction 2C AL 61.7 % LA Diameter 3.3 cm RA Systolic Volume 4C AL 29.9 ml RA Systolic Volume 4C MOD 28.3 ml LA Sys Volume AL 31.8 cm cubed LA Sys Volume Index AL 13.8 cm cubed/m squared Aorta at Sinotubular Diameter 2.5 cm IVC Diameter 1.9 cm M-MODE LA Ao Ratio MM 1.4 AV Cusp Separation MM 1.9 cm DOPPLER AV Peak Velocity 156.0 cm/s LVOT Peak Velocity 113.0 cm/s AV Area Cont Eq vti 2.2 cm squared AV Area Cont Eq pk 2.1 cm squared MV Peak Velocity 87.0 cm/s MV Area PHT 4.6 cm squared Mitral E to A Ratio 1.0 TR Peak Velocity 95.0 cm/s TR Peak Gradient 3.6 mmHg TV Peak E Velocity 91.0 cm/s PV Peak Velocity 101.0 cm/s FINDINGS Left Ventricle Normal left ventricular size and systolic function, EF 62%.. No regional wall motion abnormalities. Right Ventricle Thickening of the right ventricular free wall and prominent striations. Features of right ventricular hypertrophy with normal ejection fraction Right Atrium Mildly increased right atrial size. Left Atrium The left atrium is normal in size. Mitral Valve Mild mitral valve regurgitation. Mild mitral annular calcification. Aortic Valve No gross abnormalities noted Tricuspid Valve No gross abnormalities noted Pulmonic Valve Pulmonic valve not well visualized. Pericardium Normal pericardium without effusion. Aorta Normal ascending aorta dimension. IVC Normal inferior vena cava. CONCLUSIONS Normal left ventricular size and systolic function, EF 62%.. No regional wall motion abnormalities. Mildly increased right atrial size. Thickening of the right ventricular free wall and prominent striations. Features of right ventricular hypertrophy with normal ejection fraction. Features may suggest pulmonary hypertension may suggest pulmonary hypertension. Send there was no significant tricuspid regurgitation, PA pressure could not be calculated There is no pericardial effusion. There are no intracardiac masses. Because of differences in visual quality, cannot compare to the study from 05/09/[address] Chang Kraft MD [facility] (Electronically Signed) Final Date: 17 October 2024 09:28 S
== END 2024-10-15 06:24 | disposition home or self-care (01) ==
LOC: RAD 06:23
PROVIDERS: PCP Family Medicine; Visit Provider Nurse Practitioner Family
DX: E78.5 Hyperlipidemia, unspecified (principal); I25.10 Atherosclerotic heart disease of native coronary artery without angina pectoris; R07.9 Chest pain, unspecified; R06.09 Other forms of dyspnea; R93.1 Abnormal findings on diagnostic imaging of heart and coronary circulation; I51.7 Cardiomegaly; I34.0 Nonrheumatic mitral (valve) insufficiency; I34.81 Nonrheumatic mitral (valve) annulus calcification
CPT/HCPCS: 93306

== ENCOUNTER 2024-10-29 08:02 | Outpatient (CLI) | payer MEDICAID, SELFPAY ==
--- NOTE | 2024-10-29 | ECG_ITS ---
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 The perfusion scan will be documented separately. DATA: Baseline heart rate was 67 beats per minute. Baseline blood pressure was 159/77 millimeters of mercury. Target heart rate was 159. Maximum heart rate achieved was 100. which was 62% of the predicted target heart rate. Maximum blood pressure was 119/77 millimeters of mercury. The reason for ending the test was completion of the protocol. The patient did not experience any symptoms. ELECTROCARDIOGRAM: BASELINE: Sinus rhythm. Normal axis. Otherwise, no ST-T changes suggestive of ischemia noted. No arrhythmia noted. EXERCISE: After Lexiscan injection, no ST-T changes suggestive of ischemic noted. No arrhythmia noted. CONCLUSION: Please note due to baseline abnormality of the EKG specificity and sensitivity of the EKG portion of LexiScan MIBI stress test will be low 1. EKG not suggestive of ischemia 2. Lexiscan injection unremarkable. 3. Perfusion scan will be documented separately. Electronically Signed On 11-13-2024 18:51:03 CDT by ADIS GARCIA [email or web address] [id number]
--- NOTE | 2024-10-29 08:19 | NMCV_ITS ---
NM alee perf SPECT r/s* [id number] Natalee Null Age: 59 Gender: F : 1965 Exam Date: 10/29/2024 09:16 Ordering Phys: Giulia Jennings Technologist: MELLISA Hollingsworth Exam Location: [facility] Indications: CP STRESS TEST Please see separate stress test report in [facility] for full findings IMAGE PROTOCOL Rest/Stress 1 Lexiscan Day Radiopharmaceutical Dose (mCi) Administration Site Administered by Rest: Tc-99m 10.8 IV MELLISA Pereira Sestamibi Stress:Tc-99m 32.9 IV MELLISA Pereira Sestamibi Rest: 29-Oct-2024 60 Discovery 630 Stress: 29-Oct-2024 30 Discovery 630 0.4mg Lexiscan. Images obtained in supine and prone position. SPECT RESULTS Technical Quality: Good Raw Data Analysis: Normal Image Corrections: No attenuation or motion correction applied Summed Stress Score: 0 Summed Rest Score: 10 Summed Difference Score: 0 PERFUSION FINDINGS SPECT images demonstrate homogeneous tracer distribution throughout the myocardium. FUNCTIONAL RESULTS (calculated via Gated SPECT) Stress Image LV EF (%): 80 Stress EDV (mL):64 TID: 0.9 Stress ESV (mL):13 Rest Image LV EF (%): 65 FUNCTIONAL FINDINGS: There is normal left ventricular systolic function. IMPRESSIONS Myocardial perfusion imaging is normal. Landy Schulz MD (Electronically Signed) Final Date: 30 October 2024 17:18 S
[2024-10-29 08:20] VITALS: BMI 40.4
[2024-10-29 10:03] VITALS: BP 157/70; PULSE 85
== END 2024-10-29 08:03 | disposition home or self-care (01) ==
LOC: CDL 08:02
PROVIDERS: PCP Family Medicine; Visit Provider Nurse Practitioner Family
DX: R06.09 Other forms of dyspnea (principal)
CPT/HCPCS: 36415; 78452; 93017; 96374; A9500; J2785

== ENCOUNTER → 2024-11-06 08:52 | Outpatient (BNVA) | payer MEDICAID, SELFPAY | PROVIDERS: PCP Family Medicine; Visit Provider Nurse Practitioner Family | DX: I25.10 Atherosclerotic heart disease of native coronary artery without angina pectoris (principal); I10 Essential (primary) hypertension; I27.20 Pulmonary hypertension, unspecified; E78.5 Hyperlipidemia, unspecified; Z90.5 Acquired absence of kidney; Z79.02 Long term (current) use of antithrombotics/antiplatelets; Z79.82 Long term (current) use of aspirin; F17.200 Nicotine dependence, unspecified, uncomplicated | CPT/HCPCS: 99213 ==

== ENCOUNTER → 2024-11-19 09:56 | Outpatient (BNVA) | payer MEDICAID, SELFPAY | PROVIDERS: PCP Family Medicine; Visit Provider Orthopaedic Surgery | DX: Z98.1 Arthrodesis status (principal) | CPT/HCPCS: 72100; 99213 ==

== ENCOUNTER → 2024-12-03 09:54 | Outpatient (BNVA) | payer MEDICAID, SELFPAY | PROVIDERS: PCP Family Medicine; Visit Provider Podiatrist Foot & Ankle Surgery | DX: E11.8 Type 2 diabetes mellitus with unspecified complications (principal); M21.379 Foot drop, unspecified foot; G62.9 Polyneuropathy, unspecified; E11.42 Type 2 diabetes mellitus with diabetic polyneuropathy | CPT/HCPCS: 99213 ==

== ENCOUNTER → 2024-12-17 09:58 | Outpatient (BNVA) | payer MEDICAID, SELFPAY | PROVIDERS: PCP Family Medicine; Visit Provider Family Medicine | DX: I10 Essential (primary) hypertension (principal); I25.118 Atherosclerotic heart disease of native coronary artery with other forms of angina pectoris; E78.5 Hyperlipidemia, unspecified; E11.9 Type 2 diabetes mellitus without complications | CPT/HCPCS: 80053; 80061; 82043; 83036; 84439; 84443 ==

== ENCOUNTER 2024-12-25 12:18 | Outpatient (CLI) | payer MEDICAID, SELFPAY ==
--- NOTE | 2024-12-25 13:00 | MM_ITS ---
WS: [id number] BILATERAL 3D TOMOSYNTHESIS DIGITAL SCREENING MAMMOGRAPHY WITH CAD CLINICAL INFORMATION: screening HISTORY: Screening mammogram. No current complaints. COMPARISON: 2022 TECHNIQUE: Bilateral CC and MLO views. FINDINGS: Scattered fibroglandular densities bilaterally. No suspicious focal mass, asymmetry, calcifications, or architectural distortion. No evidence of malignancy. Incidental punctate calcifications. MM/MM [facility] tomosynthesis [id number] IMPRESSION: DENSITY: There are scattered areas of fibroglandular density. BI-RADS: 2 - Benign. FOLLOW UP: 1 Year Follow-up Recommend return to annual screening mammography.
== END 2024-12-25 12:19 | disposition home or self-care (01) ==
LOC: RAD 12:19
PROVIDERS: PCP Family Medicine; Visit Provider Family Medicine
DX: Z12.31 Encounter for screening mammogram for malignant neoplasm of breast (principal); R92.323 Mammographic fibroglandular density, bilateral breasts
CPT/HCPCS: 77063; 77067

== ENCOUNTER → 2025-01-29 13:35 | Outpatient (BNVA) | payer MEDICAID, SELFPAY ==
[2024-12-27 16:18] VITALS: BP 138/84
[2024-12-27 16:20] VITALS: BMI 40.4
== END ==
PROVIDERS: PCP Family Medicine; Visit Provider Internal Medicine Cardiovascular Disease
DX: I25.10 Atherosclerotic heart disease of native coronary artery without angina pectoris (principal); E78.5 Hyperlipidemia, unspecified; I10 Essential (primary) hypertension; E66.9 Obesity, unspecified; Z68.41 Body mass index [BMI] 40.0-44.9, adult; F31.71 Bipolar disorder, in partial remission, most recent episode hypomanic; F17.290 Nicotine dependence, other tobacco product, uncomplicated; Z95.5 Presence of coronary angioplasty implant and graft; Z86.73 Personal history of transient ischemic attack (TIA), and cerebral infarction without residual deficits
CPT/HCPCS: 99214